=== PATIENT | male | born 1955 | race Caucasian/White ===

== ENCOUNTER 2018-12-09 23:21 | Inpatient (IN) | payer OTHER ==
[2018-12-09] MEDS ORDERED: NITROGLYCERIN OINT 1 INCH/GM PACKET TOPICAL STA (23:36)
[2018-12-09] MEDS ORDERED: ASPIRIN 81 MG PO STA (23:36)
--- NOTE | 2018-12-09 23:45 | ED ---
General Adult HPI - General Chief complaint: Chest Pain Stated complaint: chest pain Time Seen by Provider: 12/09/18 23:25 Source: patient, RN notes reviewed Mode of arrival: EMS - History of Present Illness Initial comments: This is a 63-year-old male who presents emergency Department with a past medical history significant for cardiac stents as well as diabetes hypertension high cholesterol. Patient also has a distant smoking history. Patient states he also has a strong family history of heart disease having had a sister with a stroke and 2 brothers with a heart attack. Patient states he just lost her brother one month ago. Patient states yesterday while he was having chest pain which went down his right arm. Patient states it lasts about an hour. Patient states today he was doing some heavy lifting and it brought the chest pain on again. Patient states it lasted for a total of 20 minutes but he also noticed that chest pain got conservative worse when he was walking up the stairs in his house. Patient states it is very reminiscent of the pain he had when he had his heart attack. Patient did not feel as though he couldn't drive himself and said he called an ambulance. Patient denies any diaphoretic episodes. Patient denies any nausea. Patient denies any chest pain currently. Patient denies any swelling to the legs or calf tenderness. Patient denies any lightheadedness dizziness or near syncopal episode. - Related Data Home Medications Medication Instructions Recorded Confirmed Isosorbide Mononitrate [Isosorbide 30 mg PO DAILY 12/10/15 12/09/18 Mononitrate ER] Lisinopril [Zestril] 20 mg PO DAILY 12/10/15 12/09/18 Metoprolol Tartrate [Lopressor] 50 mg PO BID 12/10/15 12/09/18 Omeprazole 20 mg PO BID 12/10/15 12/09/18 metFORMIN HCL [Glucophage] 500 mg PO TID 12/10/15 12/09/18 Dapagliflozin Propanediol [Farxiga] 10 mg PO DAILY 12/09/18 12/09/18 Rosuvastatin [Crestor] 20 mg PO HS 12/09/18 12/09/18 Allergies Allergy/AdvReac Type Severity Reaction Status Date / Time codeine AdvReac Rapid Verified 12/09/18 23:49 Heart Rate meperidine HCl [From Demerol] AdvReac Rapid Verified 12/09/18 23:49 Heart Rate Review of Systems ROS Statement: Those systems with pertinent positive or pertinent negative responses have been documented in the HPI. ROS Other: All systems not noted in ROS Statement are negative. Past Medical History Past Medical History: Diabetes Mellitus, Hyperlipidemia, Myocardial Infarction ([place]) History of Any Multi-Drug Resistant Organisms: None Reported Past Surgical History: Appendectomy Past Psychological History: No Psychological Hx Reported Smoking Status: Former smoker Past Alcohol Use History: None Reported Past Drug Use History: None Reported General Exam - General Exam Comments Initial Comments: GENERAL: Patient is well-developed and well-nourished. Patient is nontoxic and well- hydrated and is in mild distress. ENT: Neck is soft and supple. No significant lymphadenopathy is noted. Oropharynx is clear. Moist mucous membranes. Neck has full range of motion without elicit ing any pain. EYES: The sclera were anicteric and conjunctiva were pink and moist. Extraocular m ovements were intact and pupils were equal round and reactive to light. Eyelids were unremarkable. PULMONARY: Unlabored respirations. Good breath sounds bilaterally. No audible rales rhonchi or wheezing was noted. CARDIOVASCULAR: There is a regular rate and rhythm without any murmurs gallops or rubs. ABDOMEN: Soft and nontender with normal bowel sounds. SKIN: Skin is clear with no lesions or rashes and otherwise unremarkable. NEUROLOGIC: Patient is alert and oriented x3. Cranial nerves II through XII are grossly intact. Motor and sensory are also intact. Normal speech, volume and content. Symmetrical smile. MUSCULOSKELETAL: Normal extremities with adequate strength and full range of motion. No lower extremity swelling or edema. No calf tenderness. LYMPHATICS: No significant lymphadenopathy is noted PSYCHIATRIC: Normal psychiatric evaluation. Course Vital Signs 12/09/18 12/10/18 23:25 00:01 Temperature 98.0 F Pulse Rate 68 69 Respiratory 16 18 Rate Blood Pressure 154/100 157/89 O2 Sat by Pulse 97 94 L Oximetry Medical Decision Making - Medical Decision Making EKG shows a normal sinus rhythm at 69 bpm AL interval 270 QRS is 84 QT interval 376 QTC is 42. Patient's EKG shows no ST segment elevation or depression or T wave abnormalities are noted. Chest x-ray shows no acute abnormality. I started the patient on heparin. I spoke with Dr. Browning she agreed to admit the patient admitted the patient I wrote admitting orders I consulted cardiology I continue the heparin and aspirin and Nitropaste on the floor. - Lab Data Result diagrams: 12/09/18 23:29 12/09/18 23:29 Lab Results 12/09/18 12/09/18 12/09/18 Range/Units 23:29 23:29 23:29 WBC 6.5 (3.8-10.6) k/uL RBC 5.38 (4.30-5.90) m/uL Hgb 15.9 (13.0-17.5) gm/dL Hct 48.4 (39.0-53.0) % MCV 89.8 (80.0-100.0) fL MCH 29.6 (25.0-35.0) pg MCHC 32.9 (31.0-37.0) g/dL RDW 14.4 (11.5-15.5) % Plt Count 125 L (150-450) k/uL Neutrophils % 58 % Lymphocytes % 30 % Monocytes % 5 % Eosinophils % 4 % Basophils % 1 % Neutrophils # 3.8 (1.3-7.7) k/uL Lymphocytes # 2.0 (1.0-4.8) k/uL Monocytes # 0.3 (0-1.0) k/uL Eosinophils # 0.2 (0-0.7) k/uL Basophils # 0.1 (0-0.2) k/uL PT 10.4 (9.0-12.0) sec INR 1.0 (<1.2) APTT 24.7 (22.0-30.0) sec Sodium 137 (137-145) mmol/L Potassium 3.9 (3.5-5.1) mmol/L Chloride 104 (98-107) mmol/L Carbon Dioxide 20 L (22-30) mmol/L Anion Gap 13 mmol/L BUN 16 (9-20) mg/dL Creatinine 0.81 (0.66-1.25) mg/dL Est GFR (CKD-EPI)AfAm >90 (>60 ml/min/1.73 sqM) Est GFR (CKD-EPI)NonAf >90 (>60 ml/min/1.73 sqM) Glucose 166 H (74-99) mg/dL Calcium 9.8 (8.4-10.2) mg/dL Magnesium 1.6 (1.6-2.3) mg/dL Total Bilirubin 0.5 (0.2-1.3) mg/dL AST 41 (17-59) U/L ALT 31 (21-72) U/L Alkaline Phosphatase 95 (38-126) U/L Troponin I (0.000-0.034) ng/mL Total Protein 7.2 (6.3-8.2) g/dL Albumin 4.4 (3.5-5.0) g/dL 12/09/18 Range/Units 23:29 WBC (3.8-10.6) k/uL RBC (4.30-5.90) m/uL Hgb (13.0-17.5) gm/dL Hct (39.0-53.0) % MCV (80.0-100.0) fL MCH (25.0-35.0) pg MCHC (31.0-37.0) g/dL RDW (11.5-15.5) % Plt Count (150-450) k/uL Neutrophils % % Lymphocytes % % Monocytes % % Eosinophils % % Basophils % % Neutrophils # (1.3-7.7) k/uL Lymphocytes # (1.0-4.8) k/uL Monocytes # (0-1.0) k/uL Eosinophils # (0-0.7) k/uL Basophils # (0-0.2) k/uL PT (9.0-12.0) sec INR (<1.2) APTT (22.0-30.0) sec Sodium (137-145) mmol/L Potassium (3.5-5.1) mmol/L Chloride (98-107) mmol/L Carbon Dioxide (22-30) mmol/L Anion Gap mmol/L BUN (9-20) mg/dL Creatinine (0.66-1.25) mg/dL Est GFR (CKD-EPI)AfAm (>60 ml/min/1.73 sqM) Est GFR (CKD-EPI)NonAf (>60 ml/min/1.73 sqM) Glucose (74-99) mg/dL Calcium (8.4-10.2) mg/dL Magnesium (1.6-2.3) mg/dL Total Bilirubin (0.2-1.3) mg/dL AST (17-59) U/L ALT (21-72) U/L Alkaline Phosphatase (38-126) U/L Troponin I 0.558 H* (0.000-0.034) ng/mL Total Protein (6.3-8.2) g/dL Albumin (3.5-5.0) g/dL Critical Care Time Critical Care Time: Yes Total Critical Care Time: 35 Disposition Clinical Impression: Non-STEMI (non-ST elevated myocardial infarction) Disposition: ADMITTED IP TO THIS HOSP Referrals: Shraddha العلي MD [Primary Care Provider] - 1-2 days Time of Disposition: 00:22
[2018-12-09 23:50] LABS: Basophils # (A) 0.1 k/uL (0-0.2); Basophils % (A) 1 %; Eosinophils # (A) 0.2 k/uL (0-0.7); Eosinophils % (A) 4 %; HCT 48.4 % (39.0-53.0); HGB 15.9 gm/dL (13.0-17.5); Lymphocytes % (A) 30 %; MCH 29.6 pg (25.0-35.0); MCHC 32.9 g/dL (31.0-37.0); MCV 89.8 fL (80.0-100.0); Mean Platelet Volume 8.3; Monocytes # (A) 0.3 k/uL (0-1.0); Monocytes % (A) 5 %; Neutrophils # (A) 3.8 k/uL (1.3-7.7); Neutrophils % (A) 58 %; Platelet Count 125 k/uL (150-450); RBC 5.38 m/uL (4.30-5.90); RDW 14.4 % (11.5-15.5); WBC 6.5 k/uL (3.8-10.6)
[2018-12-10 00:06] LABS: ALT 31 U/L (21-72); AST 41 U/L (17-59); Albumin 4.4 g/dL (3.5-5.0); Alkaline Phosphatase 95 U/L (38-126); Anion Gap 13 mmol/L; Blood Urea Nitrogen 16 mg/dL (9-20); Calcium 9.8 mg/dL (8.4-10.2); Carbon Dioxide 20 mmol/L (22-30); Chloride 104 mmol/L (98-107); Glucose 166 mg/dL (74-99); Magnesium 1.6 mg/dL (1.6-2.3); Potassium 3.9 mmol/L (3.5-5.1); Sodium 137 mmol/L (137-145); Total Bilirubin 0.5 mg/dL (0.2-1.3); Total Protein 7.2 g/dL (6.3-8.2)
[2018-12-10 00:18] LABS: Partial Thromboplastin Time 24.7 sec (22.0-30.0); Prothrombin Time 10.4 sec (9.0-12.0)
[2018-12-10] MEDS ORDERED: HEPARIN SODIUM,PORCINE 5,000 UNIT/ML 1 ML VIAL IV ONE (00:20)
--- NOTE | 2018-12-10 00:21 | XR ---
History: ITS.REASON XR Reason: Chest Pain Exam: XR CXR 2 VIEWS Comparison: None available FINDINGS: The lungs are clear. The cardiac and mediastinal contours are within limits. The visualized osseous structures appear within limits. IMPRESSION: No evidence of acute disease.
[2018-12-10] MEDS ORDERED: NITROGLYCERIN SL TABS 0.4 MG TAB SUBLINGUAL PRN ×2 (00:23→12:09)
[2018-12-10] MEDS ORDERED: HEPARIN SOD,PORK IN 0.45% NACL 25,000 UNIT in 0.45% NACL 1 250ML.BAG IV SCH (00:30)
[2018-12-10] MEDS: NITROGLYCERIN OINT 1 INCH/GM PACKET TOPICAL SCH ×2 (09:04→19:40)
[2018-12-10 09:41] LABS: Glucose,Whole Blood 156 mg/dL (75-99)
[2018-12-10 09:47] LABS: Anion Gap 10 mmol/L; Blood Urea Nitrogen 15 mg/dL (9-20); Calcium 9.4 mg/dL (8.4-10.2); Carbon Dioxide 25 mmol/L (22-30); Chloride 104 mmol/L (98-107); Glucose 158 mg/dL (74-99); Potassium 4.5 mmol/L (3.5-5.1); Sodium 139 mmol/L (137-145)
[2018-12-10] MEDS ORDERED: ALPRAZolam 0.5 MG TAB PO PRN (12:09)
[2018-12-10] MEDS ORDERED: SODIUM CHLORIDE 0.9% 1,000 ML in EMPTY BAG 1 BAG IV ONE (12:09)
[2018-12-10] MEDS ORDERED: ALPRAZolam 0.25 MG TAB PO PRN (12:09)
[2018-12-10] MEDS ORDERED: ATORVASTATIN 80 MG TAB PO STA (12:09)
[2018-12-10] MEDS ORDERED: ASPIRIN 325 MG TAB PO STA (12:09)
--- NOTE | 2018-12-10 12:09 | P.CRDCN ---
History of Present Illness Consult date: 12/10/18 Requesting physician: Adam Beltrán Consult reason: non-Q-wave PA Chief complaint: Chest pain History of present illness: This is a pleasant 63-year-old gentleman who has a known history of coronary artery disease, he states that he had a stent placed approximately 20 years ago, history of diabetes, hypertension, hyperlipidemia, he also has a prior history of smoking but quit several years ago. Strong family history of premature coronary artery disease in his siblings. Patient did just recently lose a brother. Patient presents to the hospital with symptoms of chest discomf ort. Approximately 2 days ago he started having discomfort in his right arm, he described it as a throbbing sensation, he did state that he took 3 aspirins, the symptoms seemed to improve. He slept well that night, went to work the following day, and states that he had midsternal chest discomfort, if he would sit down and rest the symptoms would subside and every time he would go back to work or walking the symptoms would return. They progressively worsened through the day to the point where he states he had a heartburn sensation similar to his prior episode when he had a stent placed. He went and spoke with his boss and EMS was called patient was brought directly to the hospital. Chest x-ray does not reveal any active disease. EKG shows a normal sinus rhythm with no acute changes noted. Blood pressure on arrival here 154/100 with a heart rate in the 60s, 97% on room air. I pressure this morning 145/80 with a heart rate in the 70s, 98% on 2 L of oxygen. Blood cell count 6.5, hemoglobin 15.9, platelet count 125. Sodium 139, potassium 4.5, BUN 15 and creatinine 0.8. Troponin 0.55, 0.72, 0.68. Magnesium 1.6. According to the patient, he has not been taking an aspirin a day, he states he has actually not even been taking his cholesterol pill as he should've been. His other home medications listed include Glucophage, Crestor 20 mg daily which she states he has not been taking, Lopressor 50 mg twice a day, Zestril 20 mg daily, Imdur 30 mg daily. At the time of my examination in the emergency room, patient is currently chest pain- free. He has been advised today to undergo cardiac catheterization, the risks and the benefits were explained to the patient in detail and he is willing to proceed. Patient has not followed up with a outreach team member according to him in o [place] 15 years. Past Medical History Past Medical History: Diabetes Mellitus, Hyperlipidemia, Myocardial Infarction ([place]) Last Myocardial Infarction Date:: 1998 History of Any Multi-Drug Resistant Organisms: None Reported Past Surgical History: Appendectomy, Heart Catheterization With Stent Additional Past Surgical History / Comment(s): Heart cath with stent 20 years ago Past Anesthesia/Blood Transfusion Reactions: No Reported Reaction Date of Last Stent Placement:: 1998 Past Psychological History: No Psychological Hx Reported Smoking Status: Former smoker Past Alcohol Use History: Daily, Heavy Additional Past Alcohol Use History / Comment(s): Patient states he drinks about 8 beers a day Past Drug Use History: None Reported Medications and Allergies Home Medications Medication Instructions Recorded Confirmed Type Isosorbide Mononitrate [Isosorbide 30 mg PO DAILY 12/10/15 12/09/18 History Mononitrate ER] Lisinopril [Zestril] 20 mg PO DAILY 12/10/15 12/09/18 History Metoprolol Tartrate [Lopressor] 50 mg PO BID 12/10/15 12/09/18 History Omeprazole 20 mg PO BID 12/10/15 12/09/18 History metFORMIN HCL [Glucophage] 500 mg PO TID 12/10/15 12/09/18 History Dapagliflozin Propanediol [Farxiga] 10 mg PO DAILY 12/09/18 12/09/18 History Rosuvastatin [Crestor] 20 mg PO HS 12/09/18 12/09/18 History Allergies Allergy/AdvReac Type Severity Reaction Status Date / Time codeine AdvReac Rapid Verified 12/09/18 23:49 Heart Rate Latex, Natural Rubber AdvReac Rash/Hives Verified 12/10/18 04:52 meperidine HCl [From Demerol] AdvReac Rapid Verified 12/09/18 23:49 Heart Rate Physical Exam Vitals: Vital Signs Temp Pulse Pulse Resp BP BP Pulse Ox 12/10/18 08:00 97.9 F 74 18 145/88 98 12/10/18 04:00 60 17 109/74 96 12/10/18 03:20 56 L 20 106/70 12/10/18 03:10 56 L 11 L 106/70 12/10/18 03:00 57 L 9 L 108/70 12/10/18 02:50 59 L 19 108/70 12/10/18 02:40 56 L 15 108/70 12/10/18 02:30 58 L 9 L 115/72 12/10/18 02:20 56 L 22 115/72 12/10/18 02:10 58 L 14 104/54 94 L 12/10/18 02:00 60 12 112/64 94 L 12/10/18 01:50 64 21 112/64 93 L 12/10/18 01:40 55 L 10 L 112/64 97 12/10/18 01:30 55 L 13 99/71 94 L 12/10/18 01:20 55 L 15 99/71 95 12/10/18 01:10 57 L 10 L 99/71 96 12/10/18 01:00 56 L 9 L 105/82 96 12/10/18 00:50 58 L 20 105/82 94 L 12/10/18 00:40 54 L 10 L 105/82 93 L 12/10/18 00:30 55 L 9 L 157/99 94 L 12/10/18 00:20 56 L 11 L 157/99 95 12/10/18 00:10 60 19 157/99 97 12/10/18 00:01 69 18 157/89 94 L 12/10/18 00:00 62 11 L 159/101 95 12/09/18 23:50 159/101 12/09/18 23:40 61 8 L 159/101 96 12/09/18 23:30 70 9 L 154/100 98 12/09/18 23:25 98.0 F 68 16 154/100 97 12/09/18 23:24 98 Intake and Output 12/09/18 12/10/18 12/10/18 22:59 06:59 14:59 Output Total 650 Balance -650 Output: Urine 650 Other: Weight 78.925 kg PHYSICAL EXAMINATION: GENERAL: 63-year-old gentleman in no acute distress at the time of my examination HEENT: Head is atraumatic, normocephalic. Pupils equal, round. Sclera anicteric. Conjunctiva are clear. Mucous membranes of the mouth are moist. Neck is supple. There is no elevated jugular venous pressure. No carotid bruit is heard. HEART EXAMINATION: Heart S1, S2 normal. No murmur or gallop heard. CHEST EXAMINATION: Lungs are clear to auscultation and precussion. No chest wall tenderness is noted on palpation or with deep breathing. ABDOMEN: Soft, nontender. Bowel sounds are heard. No organomegaly noted. EXTREMITIES: 2+ peripheral pulses with no evidence of peripheral edema and no calf tenderness noted. NEUROLOGIC patient is awake, alert and oriented 3 . . Results 12/09/18 23:12/10/18 08:42 Cardiac Enzymes 12/09/18 12/09/18 12/10/18 Range/Units : 23: 02:09 AST 41 (17-59) U/L Troponin I 0.558 H* 0.726 H* (0.000-0.034) ng/mL 12/10/18 Range/Units 08:42 AST (17-59) U/L Troponin I 0.683 H* (0.000-0.034) ng/mL Coagulation 12/09/18 12/10/18 Range/Units 23: 08:42 PT 10.4 (9.0-12.0) sec APTT 24.7 24.6 (22.0-30.0) sec CBC 12/09/18 Range/Units 23:29 WBC 6.5 (3.8-10.6) k/uL RBC 5.38 (4.30-5.90) m/uL Hgb 15.9 (13.0-17.5) gm/dL Hct 48.4 (39.0-53.0) % Plt Count 125 L (150-450) k/uL Comprehensive Metabolic Panel 12/09/18 12/10/18 Range/Units 23: 08:42 Sodium 137 139 (137-145) mmol/L Potassium 3.9 4.5 (3.5-5.1) mmol/L Chloride 104 104 (98-107) mmol/L Carbon Dioxide 20 L 25 (22-30) mmol/L BUN 16 15 (9-20) mg/dL Creatinine 0.81 0.86 (0.66-1.25) mg/dL Glucose 166 H 158 H (74-99) mg/dL Calcium 9.8 9.4 (8.4-10.2) mg/dL AST 41 (17-59) U/L ALT 31 (21-72) U/L Alkaline Phosphatase 95 (38-126) U/L Total Protein 7.2 (6.3-8.2) g/dL Albumin 4.4 (3.5-5.0) g/dL Current Medications Generic Name Dose Route Start Last Admin Trade Name Freq PRN Reason Stop Dose Admin Aspirin 325 mg 12/11/18 09:00 Aspirin PO DAILY [facility] Heparin Sodium/Sodium Chloride 250 mls @ 9.471 mls/hr 12/10/18 00:30 12/10/18 00:49 25,000 unit/ Sodium Chloride IV 12 units/kg/hr .Q24H MAUREEN 9.471 mls/hr Administration Protocol 12 UNITS/KG/HR Nitroglycerin 1 inch 12/10/18 06:00 12/10/18 09:04 Nitro-Bid Oint TOPICAL 1 inch Q6HR MAUREEN Administration Nitroglycerin 0.4 mg 12/10/18 00:23 Nitrostat SUBLINGUAL Q5M PRN Chest Pain Intake and Output 12/09/18 12/10/18 12/10/18 22:59 06:59 14:59 Output Total 650 Balance -650 Output: Urine 650 Other: Weight 78.925 kg 12/09/18 23:29 12/10/18 08:42 EKG Interpretations (text) EKG shows a normal sinus rhythm with no acute changes. Assessment and Plan Plan: Assessment and plan #1 symptoms of chest discomfort with radiation to the arm, clinical picture suggesting acute coronary syndrome. EKG shows normal sinus rhythm with no acute changes. Troponins 0.55, 0.72, 0.68. #2 known history of coronary artery disease with prior stent placement approximately 20 years ago #3 hypertension #4 hyperlipidemia #5 diabetes #6 prior history of smoking Plan We will obtain an echocardiogram with Doppler study. Patient is also been advised to undergo cardiac catheterization, the risks and the benefits again were explained to the patient in detail and he is willing to proceed. This will be performed today by Dr. Ferreira. Patient has been initiated on aspirin as well as IV heparin drip, he is currently on Nitropaste. Will resume the patient's Lopressor, Zestril, and put the patient on 80 mg of Lipitor. Further recommendations to follow. DNP note has been reviewed, I agree with a documented findings and plan of care. Patient was seen and examined.
[2018-12-10] MEDS ORDERED: ATORVASTATIN 80 MG TAB PO SCH (12:15)
[2018-12-10] MEDS ORDERED: IV FLUID CONTINUATION 350 ML IV ONE (12:18)
[2018-12-10] MEDS ORDERED: LIDOCAINE 1% INJ 10MG/ML (20 ML MDV) ONE ×2 (12:23→12:40)
[2018-12-10] MEDS ORDERED: fentaNYL (PF) 50 MCG/ML 2 ML AMP ONE (12:23)
[2018-12-10] MEDS ORDERED: MIDAZOLAM (PF) 2 MG/2 ML VIAL IV ONE (12:33)
[2018-12-10] MEDS ORDERED: LIDOCAINE 1% INJ 10MG/ML (20 ML MDV) SQ ONE ×2 (12:36)
[2018-12-10] MEDS: fentaNYL (PF) 50 MCG/ML 2 ML AMP IV ONE ×2 (12:38→12:43)
--- NOTE | 2018-12-10 12:45 | P.HPIM ---
History of Present Illness This is a pleasant 63-year-old gentleman with known history of coronary disease and a cardiac stent 20 years ago came in with compensative pressure-like chest pain has been going on for last several days and last for about an hour no associated dizziness or lightheadedness but does have shortness of breath associated with that exertional chest pain pressure-like as well as burning sensation and retrosternal area. Patient does have mildly elevated troponins of 0.55 0.7 22.68. Patient chest pain radiates to the right arm. Moderate chest pain. Patient is noncompliant with his aspirin and statin. Patient doesn't see a certified prosthetist/orthotist anymore. Patient was evaluated by cardiology and the echo and cardiac ablation patient will undergo cardiac catheterization shortly. EKG findings refer to cardiology dictation. Review of Systems REVIEW OF SYSTEMS: CONSTITUTIONAL: No fever, no malaise, no fatigue. HEENT: No recent visual problems or hearing problems. Denied any sore throat. CARDIOVASCULAR: No orthopnea, PND, no palpitations, no syncope. PULMONARY: no cough, no hemoptysis. GASTROINTESTINAL: No diarrhea, no nausea, no vomiting, no abdominal pain. NEUROLOGICAL: No headaches, no weakness, no numbness. HEMATOLOGICAL: Denies any bleeding or petechiae. GENITOURINARY: Denies any burning micturition, frequency, or urgency. MUSCULOSKELETAL/RHEUMATOLOGICAL: Denies any joint pain, swelling, or any muscle pain. ENDOCRINE: Denies any polyuria or polydipsia. The rest of the 14-point review of systems is negative. Past Medical History Past Medical History: Diabetes Mellitus, Hyperlipidemia, Myocardial Infarction ([place]) Last Myocardial Infarction Date:: 1998 History of Any Multi-Drug Resistant Organisms: None Reported Past Surgical History: Appendectomy, Heart Catheterization With Stent Additional Past Surgical History / Comment(s): Heart cath with stent 20 years ago Past Anesthesia/Blood Transfusion Reactions: No Reported Reaction Date of Last Stent Placement:: 1998 Past Psychological History: No Psychological Hx Reported Smoking Status: Former smoker Past Alcohol Use History: Daily, Heavy Additional Past Alcohol Use History / Comment(s): Patient states he drinks about 8 beers a day Past Drug Use History: None Reported Medications and Allergies Home Medications Medication Instructions Recorded Confirmed Type Isosorbide Mononitrate [Isosorbide 30 mg PO DAILY 12/10/15 12/09/18 History Mononitrate ER] Lisinopril [Zestril] 20 mg PO DAILY 12/10/15 12/09/18 History Metoprolol Tartrate [Lopressor] 50 mg PO BID 12/10/15 12/09/18 History Omeprazole 20 mg PO BID 12/10/15 12/09/18 History metFORMIN HCL [Glucophage] 500 mg PO TID 12/10/15 12/09/18 History Dapagliflozin Propanediol [Farxiga] 10 mg PO DAILY 12/09/18 12/09/18 History Rosuvastatin [Crestor] 20 mg PO HS 12/09/18 12/09/18 History Allergies Allergy/AdvReac Type Severity Reaction Status Date / Time codeine AdvReac Rapid Verified 12/09/18 23:49 Heart Rate Latex, Natural Rubber AdvReac Rash/Hives Verified 12/10/18 04:52 meperidine HCl [From Demerol] AdvReac Rapid Verified 12/09/18 23:49 Heart Rate Physical Exam Vitals: Vital Signs Temp Pulse Pulse Resp BP BP Pulse Ox 12/10/18 08:00 97.9 F 74 18 145/88 98 12/10/18 04:00 60 17 109/74 96 12/10/18 03:20 56 L 20 106/70 12/10/18 03:10 56 L 11 L 106/70 12/10/18 03:00 57 L 9 L 108/70 12/10/18 02:50 59 L 19 108/70 12/10/18 02:40 56 L 15 108/70 12/10/18 02:30 58 L 9 L 115/72 12/10/18 02:20 56 L 22 115/72 12/10/18 02:10 58 L 14 104/54 94 L 12/10/18 02:00 60 12 112/64 94 L 12/10/18 01:50 64 21 112/64 93 L 12/10/18 01:40 55 L 10 L 112/64 97 12/10/18 01:30 55 L 13 99/71 94 L 12/10/18 01:20 55 L 15 99/71 95 12/10/18 01:10 57 L 10 L 99/71 96 12/10/18 01:00 56 L 9 L 105/82 96 12/10/18 00:50 58 L 20 105/82 94 L 12/10/18 00:40 54 L 10 L 105/82 93 L 12/10/18 00:30 55 L 9 L 157/99 94 L 12/10/18 00:20 56 L 11 L 157/99 95 12/10/18 00:10 60 19 157/99 97 12/10/18 00:01 69 18 157/89 94 L 12/10/18 00:00 62 11 L 159/101 95 12/09/18 23:50 159/101 12/09/18 23:40 61 8 L 159/101 96 12/09/18 23:30 70 9 L 154/100 98 12/09/18 23:25 98.0 F 68 16 154/100 97 12/09/18 23:24 98 Intake and Output 12/09/18 12/10/18 12/10/18 22:59 06:59 14:59 Intake Total 108.759 Output Total 650 Balance -650 108.759 Intake: Intake, IV Titration 108.759 Amount Heparin Sod,Pork in 0.45% 108.759 NaCl 25,000 unit In 0.45 % NaCl 1 250ml.bag @ 12 UNITS/KG/HR 9.471 mls/hr IV .Q24H [facility] Rx#: [id number] Output: Urine 650 Other: Weight 78.925 kg PHYSICAL EXAMINATION: GENERAL: The patient is alert and oriented x3, not in any acute distress. Well developed, well nourished. HEENT: Pupils are round and equally reacting to light. EOMI. No scleral icterus. No conjunctival pallor. Normocephalic, atraumatic. No pharyngeal erythema. No thyromegaly. CARDIOVASCULAR: S1 and S2 present. No murmurs, rubs, or gallops. PULMONARY: Chest is clear to auscultation, no wheezing or crackles. ABDOMEN: Soft, nontender, nondistended, normoactive bowel sounds. No palpable organomegaly. MUSCULOSKELETAL: No joint swelling or deformity. EXTREMITIES: No cyanosis, clubbing, or pedal edema. NEUROLOGICAL: Gross neurological examination did not reveal any focal deficits. SKIN: No rashes. Results CBC & Chem 7: 12/09/18 23:29 12/10/18 08:42 Labs: Abnormal Lab Results - Last 24 Hours (Table) 12/09/18 12/09/1812/09/19 Range/Units 23:29 23:29 23:29 Plt Count 125 L (150-450) k/uL Carbon Dioxide 20 L (22-30) mmol/L Glucose 166 H (74-99) mg/dL POC Glucose (mg/dL) (75-99) mg/dL Troponin I 0.558 H* (0.000-0.034) ng/mL 12/10/18 12/10/18 12/10/18 Range/Units 02:09 08:42 08:42 Plt Count (150-450) k/uL Carbon Dioxide (22-30) mmol/L Glucose 158 H (74-99) mg/dL POC Glucose (mg/dL) (75-99) mg/dL Troponin I 0.726 H* 0.683 H* (0.000-0.034) ng/mL 12/10/18 Range/Units 09:14 Plt Count (150-450) k/uL Carbon Dioxide (22-30) mmol/L Glucose (74-99) mg/dL POC Glucose (mg/dL) 156 H (75-99) mg/dL Troponin I (0.000-0.034) ng/mL Thrombosis Risk Factor Assmnt - Choose All That Apply Any of the Below Risk Factors Present?: Yes Each Factor Represents 1 point: Obesity (BMI >25) Other Risk Factors: Yes Each Risk Factor Represents 2 Points: Age 61-74 years Other congenital or acquired thrombophilia - If yes, enter type in comment: No Thrombosis Risk Factor Assessment Total Risk Factor Score: 3 Thrombosis Risk Factor Assessment Level: Moderate Risk Assessment and Plan Plan: Possible non-ST elevation myocardial infarction: Patient will undergo cardiac c atheterization today continue with statin and beta kirit and antiplatelet therapy. -Known history of coronary disease -Hypertension Hyperlipidemia -Type 2 diabetes mellitus For above-mentioned chronic medical problems patient will be started and continued on for above-mentioned chronic medical problems patient will be started and continued on appropriate home medications.
[2018-12-10] MEDS ORDERED: BIVALIRUDIN BOLUS 250 MG/50 ML IV ONE (13:25)
[2018-12-10] MEDS ORDERED: BIVALIRUDIN 250 MG in SODIUM CHLORIDE 0.9% 50 ML IV ONE (13:26)
--- NOTE | 2018-12-10 13:35 | CC ---
CARDIAC CATHETERIZATION REPORT Mr. Gee is a 63-year-old gentleman who was admitted to the hospital with symptoms of chest pain and non ST-segment elevation myocardial infarction. In view of that, the patient was recommended to have a cardiac catheterization for definitive diagnosis. PROCEDURE: The right groin was prepped and draped in the usual manner and the right femoral artery was entered under ultrasound guidance using micropuncture needle and a 6-Kyrgyz sheath was placed in. Selective coronary angiography was then performed in multiple projections. Left ventricular pressures were obtained. HEMODYNAMICS: The left ventricular end-diastolic pressure is 8 to 10 mmHg prior to angiography. No gradient is noted across the aortic valve. SELECTIVE CORONARY ANGIOGRAPHY: Left main coronary artery is normal and patent. LAD is a good caliber blood vessel and mid LAD after the origin of the second diagonal branch has about 50% stenosis. Circumflex coronary artery has mild irregularity. Right coronary artery is a large caliber blood vessel and is diffusely diseased in the proximal portion with 99% stenosis. The stenosis extends from proximal part of the stent to probably the septum. The mid RCA has another area of 70% stenosis. FINAL IMPRESSION: This study reveals a 99% stenosis in the proximal RCA and mid RCA has another 70% stenosis. The mid LAD has 50% stenosis. Circumflex coronary artery has a mild irregularity. RECOMMENDATIONS: We reviewed the film with Dr. Velasco and consider probably stent to the RCA and possible FFR to the mid LAD. MMODL / IJN: [id number] /
[2018-12-10] MEDS ORDERED: IOPAMIDOL-370 125ML BTL INJ ONE (13:55)
[2018-12-10] MEDS ORDERED: TICAGRELOR 90 MG TAB ONE (14:24)
[2018-12-10] MEDS ORDERED: TICAGRELOR 90 MG TAB PO ONE (14:25)
[2018-12-10] MEDS ORDERED: ZOLPIDEM 5 MG TAB PO PRN (14:25)
[2018-12-10] MEDS ORDERED: MAG HYDROX/AL HYDROX/SIMETH 30 ML CUP PO PRN (14:25)
[2018-12-10] MEDS ORDERED: RX INFO: IV CONTRAST WAS GIVEN 1 EACH MISC MISCELLANE PRN (14:25)
[2018-12-10] MEDS ORDERED: ATROPINE SULFATE 0.1 MG/ML 10ML SYRINGE IV PRN (14:25)
[2018-12-10] MEDS ORDERED: IOPAMIDOL-370 100ML BTL INJ ONE (14:38)
[2018-12-10 16:17] LABS: Glucose,Whole Blood 128 mg/dL (75-99)
--- NOTE | 2018-12-10 16:19 | ECHOF ---
Referral Reason:assess lvf MEASUREMENTS -------- HEIGHT: 162.6 cm WEIGHT: 78.9 kg BP: RVIDd: 3.2 cm (< 3.3) IVSd: 1.3 cm (0.6 - 1.1) LVIDd: 4.0 cm (3.9 - 5.3) LVPWd: 1.4 cm (0.6 - 1.1) IVSs: 1.6 cm LVIDs: 3.0 cm LVPWs: 1.6 cm LAESV Index (A-L): 19.26 ml/m Ao Diam: 3.5 cm (2.0 - 3.7) AV Cusp: 1.8 cm (1.5 - 2.6) LA Diam: 4.2 cm (2.7 - 3.8) MV EXCURSION: 16.312 mm (> 18.000) MV EF SLOPE: 59 mm/s (70 - 150) EPSS: 0.8 cm MV E Thompson: 0.66 m/s MV DecT: 231 ms MV A Thompson: 0.78 m/s MV E/A Ratio: 0.84 RAP: 5.00 mmHg RVSP: 20.18 mmHg FINDINGS -------- Sinus rhythm. This was a technically difficult study with suboptimal apical views. The left ventricular size is normal. There is mild concentric left ventricular hypertrophy. Overa ll left ventricular systolic function is normal with, an EF between 55 - 60 %. The right ventricle is normal in size. Normal LA size by volume 22+/-6 ml/m2. The right atrial size is normal. Lumason used Interatrial and interventricular septum intact. Aortic valve is trileaflet and is mildly thickened. The mitral valve is normal. There is trace mitral regurgitation. Trace tricuspid regurgitation present. There is no evidence of pulmonary hypertension. The right ventricular systolic pressure, as measured by Doppler, is 20.18mmHg. Trace/mild (physiologic) pulmonic regurgitation. The aortic root size is normal. IVC Not well visulized. Echo free space indicative of a pericardial fat pad. CONCLUSIONS -------- 1. Sinus rhythm. 2. This was a technically difficult study with suboptimal apical views. 3. The left ventricular size is normal. 4. There is mild concentric left ventricular hypertrophy. 5. Overall left ventricular systolic function is normal with, an EF between 55 - 60 %. 6. The right ventricle is normal in size. 7. Normal LA size by volume 22+/-6 ml/m2. 8. The right atrial size is normal. 9. Lumason used 10. Interatrial and interventricular septum intact. 11. Aortic valve is trileaflet and is mildly thickened. 12. The mitral valve is normal. 13. There is trace mitral regurgitation. 14. Trace tricuspid regurgitation present. 15. There is no evidence of pulmonary hypertension. 16. The right ventricular systolic pressure, as measured by Doppler, is 20.18mmHg. 17. Trace/mild (physiologic) pulmonic regurgitation. 18. The aortic root size is normal. 19. IVC Not well visulized. 20. Echo free space indicative of a pericardial fat pad. STEEL POST INSTALLER SUPERVISOR: Calista Carey RDCS
[2018-12-10] MEDS: SODIUM CHLORIDE 0.9% 1,000 ML IV SCH (16:39)
[2018-12-10 17:02] LABS: Glucose,Whole Blood 118 mg/dL (75-99)
--- NOTE | 2018-12-10 17:36 | PTCA ---
PERCUTANEOUSTRANS CORORONARY ANGIOGRAPHY DATE OF SERVICE: 12/10/2018 PERFORMING PHYSICIAN: Christian Velasco MD, medical manager. PROCEDURE PERFORMED: Successful stenting of a complex calcified eccentric lesion involving the proximal right coronary artery using a 3.0 x 18 mm Xience drug-eluting stent with an excellent angiographic result and reduction of stenosis from 99% to 0%. INDICATION: This is a 63-year-old gentleman with history of coronary artery disease and prior coronary artery stenting of the RCA who presented to the hospital with chest discomfort and ruled in for acute [id number] myocardial infarction. He underwent heart catheterization by Dr. Ferreira and was found to have critical disease involving the proximal RCA with eccentric calcified lesion, very complex. Because of that, PCI was advised. APPROACH: Right common femoral artery. COMPLICATIONS: None. LEVEL OF SEDATION: Moderate, with sedation length of 56 minutes. PROCEDURE DESCRIPTION: Please refer to the diagnostic heart catheterization that was performed by Dr. Ferreira. Anticoagulation was initiated using Angiomax. Subsequently I did engage the RCA using JR4 guide. A Whisper wire was used to wire the lesion in the RCA. I could not advance any balloon across the lesion, including a 1.25 mm balloon. Because of that I double- wired the RCA using a run-through wire. Over the run-through I was able to advance initially a 1.5 mm balloon and subsequently a 2.5 mm balloon. I did balloon angioplasty of the RCA. There was a narrowing of the balloon and I ballooned it using 3.0 mm NC balloon. After that I was able to advance a 3.0 x 18 mm Xience SILVIA where the stent was positioned under fluoroscopic guidance and deployed under 18 atmospheres for 20 seconds. I post dilated the stent using a 3.0 NC balloon. The final angiogram showed excellent angiographic results and the procedure was completed without any complication. POST-PROCEDURE MANAGEMENT: 1. Dual anti-platelet therapy. 2. Risk factor modifications. 3. Follow up with the patient. MMODL / IJN: [id number] /
[2018-12-10] MEDS: METOPROLOL TARTRATE 50 MG TAB PO SCH (19:43)
[2018-12-10 20:03] LABS: Hemoglobin A1C 8.8 % (4.0-6.0)
[2018-12-10] MEDS ORDERED: NON-FORMULARY DRUG (Rosuvastatin 20 MG) PO SCH (21:00)
[2018-12-10] MEDS ORDERED: ATORVASTATIN 40 MG TAB PO SCH (21:00)
[2018-12-10] MEDS ORDERED: METOPROLOL TARTRATE 25 MG TAB PO SCH (21:00)
[2018-12-10 21:13] LABS: Glucose,Whole Blood 236 mg/dL (75-99)
[2018-12-10] MEDS: INSULIN ASPART (NovoLOG) 100 UNIT/ML VIAL SQ SCH (21:27)
[2018-12-11] MEDS: SODIUM CHLORIDE 0.9% 1,000 ML IV SCH (00:06)
[2018-12-11 04:37] VITALS: RESP 18
[2018-12-11 06:06] LABS: Glucose,Whole Blood 225 mg/dL (75-99)
[2018-12-11] MEDS: INSULIN ASPART (NovoLOG) 100 UNIT/ML VIAL SQ SCH ×2 (06:17→13:19)
[2018-12-11] MEDS ORDERED: PANTOPRAZOLE 40 MG TABLET PO SCH (07:30)
[2018-12-11 07:43] LABS: Basophils % (A) 1 %; Eosinophils # (A) 0.1 k/uL (0-0.7); Eosinophils % (A) 2 %; HCT 46.9 % (39.0-53.0); Lymphocytes # (A) 1.4 k/uL (1.0-4.8); Lymphocytes % (A) 26 %; MCH 29.2 pg (25.0-35.0); MCHC 31.9 g/dL (31.0-37.0); MCV 91.6 fL (80.0-100.0); Mean Platelet Volume 8.8; Monocytes # (A) 0.4 k/uL (0-1.0); Monocytes % (A) 7 %; Neutrophils # (A) 3.4 k/uL (1.3-7.7); Neutrophils % (A) 63 %; Platelet Count 128 k/uL (150-450); RBC 5.12 m/uL (4.30-5.90); RDW 14.7 % (11.5-15.5); WBC 5.4 k/uL (3.8-10.6)
[2018-12-11 07:48] LABS: Anion Gap 6 mmol/L; Blood Urea Nitrogen 16 mg/dL (9-20); Carbon Dioxide 24 mmol/L (22-30); Chloride 107 mmol/L (98-107); Cholesterol 242 mg/dL (<200); Glucose 196 mg/dL (74-99); HDL Cholesterol 34 mg/dL (40-60); Potassium 4.6 mmol/L (3.5-5.1); Sodium 137 mmol/L (137-145)
[2018-12-11 08:08] LABS: Triglycerides 644 mg/dL (<150)
[2018-12-11] MEDS: METOPROLOL TARTRATE 50 MG TAB PO SCH (08:49)
[2018-12-11] MEDS ORDERED: LISINOPRIL 20 MG TAB PO SCH (09:00)
[2018-12-11] MEDS ORDERED: ASPIRIN 325 MG TAB PO SCH (09:00)
[2018-12-11] MEDS ORDERED: ASPIRIN 81 MG PO SCH (09:00)
[2018-12-11] MEDS ORDERED: ISOSORBIDE MONONITRATE ER 30 MG TAB.ER.24H PO SCH (09:00)
[2018-12-11] MEDS ORDERED: NON-FORMULARY DRUG (Dapagliflozin Propanediol [Farxiga] 10 MG) PO SCH (09:00)
[2018-12-11] MEDS ORDERED: TICAGRELOR 90 MG TAB PO SCH (09:00)
[2018-12-11 10:40] VITALS: BMI 29.7
--- NOTE | 2018-12-11 11:01 | P.DS ---
Providers Date of admission: 12/10/18 00:25 Attending physician: Love Nugent MD Consults: 12/10/18 00:23 Consult Physician Urgent Consulting Provider: Deepak Espinosa Consult Reason/Comments: Non-STEMI Do you want consulting provider notified?: Yes 12/10/18 14:29 Consult Physician Routine Consulting Provider: Deepak Espinosa Consult Reason/Comments: Post Interventional patient Do you want consulting provider notified?: Already Contacted Primary care physician: Zohra Llanes [facility] Course: Patient is a pleasant 63-year-old gentleman with known history of coronary disease and a cardiac stent 20 years ago came in with compensative pressure-like chest pain has been going on for last several days and last for about an hour no associated dizziness or lightheadedness but does have shortness of breath associated with that exertional chest pain pressure-like as well as burning sensation and retrosternal area. Patient does have mildly elevated troponins of 0.55 0.7 22.68. Patient chest pain radiates to the right arm. Moderate chest pain. Patient is noncompliant with his aspirin and statin. Patient doesn't see a booth operator anymore. 12/11/2018 Patient had nondistended microinfarction underwent cardiac catheterization and stenting of the RCA which was completely occluded for rest of the cardiac catheterization report please refer to cardiology documentation. Patient cleared by cardiology will be discharged and medication reconciliation will be addressed by them PHYSICAL EXAMINATION: GENERAL: The patient is alert and oriented x3, not in any acute distress. Well developed, well nourished. HEENT: Pupils are round and equally reacting to light. EOMI. No scleral icterus. No conjunctival pallor. Normocephalic, atraumatic. No pharyngeal erythema. No thyromegaly. CARDIOVASCULAR: S1 and S2 present. No murmurs, rubs, or gallops. PULMONARY: Chest is clear to auscultation, no wheezing or crackles. ABDOMEN: Soft, nontender, nondistended, normoactive bowel sounds. No palpable organomegaly. MUSCULOSKELETAL: No joint swelling or deformity. EXTREMITIES: No cyanosis, clubbing, or pedal edema. NEUROLOGICAL: Gross neurological examination did not reveal any focal deficits. SKIN: No rashes. For rest of the chronic medical problems and hospital physician course please refer to my dictation of HPI from yesterday Plan - Discharge Summary Discharge Rx Participant: No New Discharge Prescriptions: No Action metFORMIN HCL [Glucophage] 500 mg PO TID Lisinopril [Zestril] 20 mg PO DAILY Omeprazole 20 mg PO BID Metoprolol Tartrate [Lopressor] 50 mg PO BID Isosorbide Mononitrate [Isosorbide Mononitrate ER] 30 mg PO DAILY Rosuvastatin [Crestor] 20 mg PO HS Dapagliflozin Propanediol [Farxiga] 10 mg PO DAILY Discharge Medication List Isosorbide Mononitrate [Isosorbide Mononitrate ER] 30 mg PO DAILY 12/10/15 [History] Lisinopril [Zestril] 20 mg PO DAILY 12/10/15 [History] Metoprolol Tartrate [Lopressor] 50 mg PO BID 12/10/15 [History] Omeprazole 20 mg PO BID 12/10/15 [History] metFORMIN HCL [Glucophage] 500 mg PO TID 12/10/15 [History] Dapagliflozin Propanediol [Farxiga] 10 mg PO DAILY 12/09/18 [History] Rosuvastatin [Crestor] 20 mg PO HS 12/09/18 [History] Follow up Appointment(s)/Referral(s): Shraddha العلي MD [Primary Care Provider] - 12/18/18 2:00 pm () [place] Ferreira MD [STAFF PHYSICIAN] - 1 Week (Spoke to secretary receptionist. Office will call with appointment time) Patient Instructions/Handouts: *Surgery [facility] - After Heart Catheterization - Manager Budget Instructions, Left Heart Catheterization (DC) Discharge Disposition: HOME SELF-CARE
[2018-12-11 11:36] LABS: Glucose,Whole Blood 188 mg/dL (75-99)
[2018-12-11 12:08] VITALS: BP 112/68; PULSE 54; TEMP 98
--- NOTE | 2018-12-11 14:24 | P.PN ---
Subjective Progress Note Date: 12/11/18 This is a pleasant 63-year-old gentleman who has a known history of coronary artery disease, he states that he had a stent placed approximately 20 years ago, history of diabetes, hypertension, hyperlipidemia, he also has a prior history of smoking but quit several years ago. Strong family history of premature coronary artery disease in his siblings. Patient did just recently lose a brother. Patient presents to the hospital with symptoms of chest discomfort. Approximately 2 days ago he started having discomfort in his right arm, he described it as a throbbing sensation, he did state that he took 3 aspirins, the symptoms seemed to improve. He slept well that night, went to work the following day, and states that he had midsternal chest discomfort, if he would sit down and rest the symptoms would subside and every time he would go back to work or walking the symptoms would return. They progressively worsened through the day to the point where he states he had a heartburn sensation similar to his prior episode when he had a stent placed. He went and spoke with his boss and EMS was called patient was brought directly to the hospital. Chest x-ray does not reveal any active disease. EKG shows a normal sinus rhythm with no acute changes noted. Blood pressure on arrival here 154/100 with a heart rate in the 60s, 97% on room air. I pressure this morning 145/80 with a heart rate in the 70s, 98% on 2 L of oxygen. Blood cell count 6.5, hemoglobin 15.9, platelet count 125. Sodium 139, potassium 4.5, BUN 15 and creatinine 0.8. Troponin 0.55, 0.72, 0.68. Magnesium 1.6. According to the patient, he has not been taking an aspirin a day, he states he has actually not even been taking his cholesterol pill as he should've been. His other home medications listed include Glucophage, Crestor 20 mg daily which she states he has not been taking, Lopressor 50 mg twice a day, Zestril 20 mg daily, Imdur 30 mg daily. At the time of my examination in the emergency room, patient is currently chest pain- free. He has been advised today to undergo cardiac catheterization, the risks and the benefits were explained to the patient in detail and he is willing to proceed. Patient has not followed up with a liaison planner according to him in over 15 years. 12/11/2017 Patient was taken to the cardiac catheterization lab yesterday, he underwent a cardiac catheterization by Dr. marie daley, subsequent to that patient underwent successful stenting of a complex calcified eccentric lesion involving the proximal right coronary artery from 99% to 0%. The mid LAD was also noted to have a 50% stenosis. Patient was seen and examined this morning, overall he is feeling well. Denies any chest pain or difficulty in breathing. He's been up ambulating without any difficulty. Hemodynamically stable. From our perspective he may be able to be discharged home today, we'll make a follow-up appointment for him to see Dr. VC Ferreira in the office in one week. Objective - Vital Signs Vital signs: Vital Signs Temp 98.0 F 12/11/18 11:40 Pulse 54 L 12/11/18 11:40 Resp 18 12/11/18 11:40 BP 112/68 12/11/18 11:40 Pulse Ox 98 12/11/18 11:40 Intake & Output 12/10/18 12/11/18 12/11/18 18:59 06:59 18:59 Intake Total 784.452 3074 240 Output Total 300 300 400 Balance 203.759 700 -160 Weight 78.41 kg 78.41 kg Intake: IV 395 1000 Sodium Chloride 0.9% 1, 0 1000 000 ml @ 100 mls/hr IV . Q10H MAUREEN Rx#:[id number] Intake, IV Titration 108.759 Amount Heparin Sod,Pork in 0.45% 108.759 NaCl 25,000 unit In 0.45 % NaCl 1 250ml.bag @ 12 UNITS/KG/HR 9.471 mls/hr IV .Q24H MAUREEN Rx#: [id number] Oral 240 Output: Urine 300 300 400 Other: Voiding Method Urinal # Voids 1 1 1 - Exam PHYSICAL EXAMINATION: GENERAL: 63-year-old gentleman in no acute distress at the time of my examination HEENT: Head is atraumatic, normocephalic. Pupils equal, round. Sclera anicteric. Conjunctiva are clear. Mucous membranes of the mouth are moist. Neck is supple. There is no elevated jugular venous pressure. No carotid bruit is heard. HEART EXAMINATION: Heart S1, S2 normal. No murmur or gallop heard. CHEST EXAMINATION: Lungs are clear to auscultation and precussion. No chest wall tenderness is noted on palpation or with deep breathing. ABDOMEN: Soft, nontender. Bowel sounds are heard. No organomegaly noted. EXTREMITIES: 2+ peripheral pulses with no evidence of peripheral edema and no calf tenderness noted. Right groin Is soft, no evidence of any hematoma. NEUROLOGIC patient is awake, alert and oriented X 3 . - Labs CBC & Chem 7: 12/11/18 06:57 12/11/18 06:57 Labs: Abnormal Lab Results - Last 24 Hours (Table) 12/10/18 12/10/18 12/10/18 Range/Units 08:42 16:15 17:01 Plt Count (150-450) k/uL Glucose (74-99) mg/dL POC Glucose (mg/dL) 128 H 118 H (75-99) mg/dL Hemoglobin A1c 8.8 H (4.0-6.0) % Triglycerides (<150) mg/dL Cholesterol (<200) mg/dL HDL Cholesterol (40-60) mg/dL 12/10/18 12/11/18 12/11/18 Range/Units 20:51 05:55 06:57 Plt Count (150-450) k/uL Glucose 196 H (74-99) mg/dL POC Glucose (mg/dL) 236 H 225 H (75-99) mg/dL Hemoglobin A1c (4.0-6.0) % Triglycerides 644 H (<150) mg/dL Cholesterol 242 H (<200) mg/dL HDL Cholesterol 34 L (40-60) mg/dL 12/11/18 12/11/18 Range/Units 06:57 11:24 Plt Count 128 L (150-450) k/uL Glucose (74-99) mg/dL POC Glucose (mg/dL) 188 H (75-99) mg/dL Hemoglobin A1c (4.0-6.0) % Triglycerides (<150) mg/dL Cholesterol (<200) mg/dL HDL Cholesterol (40-60) mg/dL Assessment and Plan Plan: Assessment and plan #1 non-Q-wave [place] status post angioplasty and stenting of the right coronary artery, 50% LAD lesion also present. #2 known history of coronary artery disease with prior stent placement approximately 20 years ago #3 hypertension #4 hyperlipidemia #5 diabetes #6 prior history of smoking Plan Cardiology's perspective, patient may be able to be discharged home today. We'll make him a follow-up appointment to see Dr. VC Ferreira in the office one week post discharge. He's been educated regarding the importance of taking his medications regularly and irregular follow-up in the office. DNP note has been reviewed, I agree with a documented findings and plan of care. Patient was seen and examined.
[2018-12-11] MEDS ORDERED: INSULIN ASPART (NovoLOG) 100 UNIT/ML VIAL SQ SCH (21:30)
== END 2018-12-11 13:57 | disposition home or self-care (01) | DRG 247 ==
LOC: EC 23:21 → 3SCARD 12-10 00:25
PROVIDERS: ADMIT Internal Medicine; ATTEND Internal Medicine
PROC: B2151ZZ Fluoroscopy of Left Heart using Low Osmolar Contrast (ICD-10-PCS; 2018-12-10)
PROC: 027034Z Dilation of Coronary Artery, One Artery with Drug-eluting Intraluminal Device, Percutaneous Approach (ICD-10-PCS; principal; 2018-12-10 12:00)
PROC: B2111ZZ Fluoroscopy of Multiple Coronary Arteries using Low Osmolar Contrast (ICD-10-PCS; 2018-12-10 12:00)
DX: I21.4 Non-ST elevation (NSTEMI) myocardial infarction (principal); E11.9 Type 2 diabetes mellitus without complications; I25.10 Atherosclerotic heart disease of native coronary artery without angina pectoris; E78.5 Hyperlipidemia, unspecified; I10 Essential (primary) hypertension; I25.2 Old myocardial infarction; T39.016A Underdosing of aspirin, initial encounter; T46.6X6A Underdosing of antihyperlipidemic and antiarteriosclerotic drugs, initial encounter; Z91.128 Patient's intentional underdosing of medication regimen for other reason; Z79.84 Long term (current) use of oral hypoglycemic drugs; Z79.899 Other long term (current) drug therapy; Z95.5 Presence of coronary angioplasty implant and graft; Z87.891 Personal history of nicotine dependence; Z90.49 Acquired absence of other specified parts of digestive tract; Z88.5 Allergy status to narcotic agent; Z91.040 Latex allergy status; Z82.49 Family history of ischemic heart disease and other diseases of the circulatory system; Z82.3 Family history of stroke
CPT/HCPCS: 36415; 71046; 80048; 80053; 80061; 83036; 83735; 84484; 85025; 85610; 85730; 93005; 93306; 93458; 96365; 96366; 96376; 99291; C1874

== ENCOUNTER → 2019-01-27 | Outpatient (CLI) | payer OTHER | END | disposition home or self-care (01) | LOC: LABWHC1 11:06 | PROVIDERS: ATTEND Internal Medicine Cardiovascular Disease | DX: I25.10 Atherosclerotic heart disease of native coronary artery without angina pectoris (principal) | CPT/HCPCS: 36415; 83704 ==

== ENCOUNTER → 2020-01-06 | Outpatient (CLI) | payer OTHER ==
[2020-01-06 21:14] LABS: African American GFR (CKD) 82.9 (60.0-200.0); Anion Gap 12.1 mmol/L (4.00-12.00); BUN/Creat Ratio 12.73 Ratio (12.00-20.00); Calcium 9.2 mg/dL (8.7-10.3); Carbon Dioxide 20.9 mmol/L (21.6-31.8); Non-African American GFR(CKD) 71.6 (60.0-200.0); Potassium 4.8 mmol/L (3.5-5.5)
[2020-01-06 21:55] LABS: Hemoglobin A1C 10.4 % (4.0-6.0)
== END | disposition home or self-care (01) ==
LOC: LABWHC1 13:31
PROVIDERS: ATTEND Internal Medicine
DX: I10 Essential (primary) hypertension (principal); E11.9 Type 2 diabetes mellitus without complications
CPT/HCPCS: 36415; 80048; 83036

== ENCOUNTER → 2020-02-15 | Outpatient (CLI) | payer OTHER | LOC: LABWHC1 11:15 | PROVIDERS: ATTEND Student in an Organized Health Care Education/Training Program | DX: U07.1 COVID-19 (principal) ==

== ENCOUNTER → 2020-02-19 | Day surgery (SDC) | payer OTHER ==
[2020-02-16 15:16] VITALS: BMI 30.5
[~2020-02-19] MED LIST: LACTATED RINGERS 1,000 ML IV SCH; LIDOCAINE 1% (10MG/ML) FOR IV START INTRADERMA PRN; MIDAZOLAM 2 MG/2 ML VIAL ONE; PROPOFOL 10 MG/ML 20 ML VIAL IV ONE; fentaNYL (PF) 50 MCG/ML 2 ML AMP ONE
[2020-02-19 07:18] VITALS: RESP 16; TEMP 98.7
[2020-02-19 07:46] LABS: Glucose,Whole Blood 171 mg/dL (75-99)
--- NOTE | 2020-02-19 08:19 | P.OP ---
Date of Procedure: 02/19/20 Preoperative Diagnosis: Screening Postoperative Diagnosis: Colitis, diverticulosis, cecal polyp, sigmoid polyp Procedure(s) Performed: Colonoscopy with hot snare polypectomy and cold forceps biopsy Anesthesia: MAC Surgeon: Klever Olmedo Estimated Blood Loss (ml): 0 Condition: stable Disposition: PACU Description of Procedure: Patient is brought operative suite placed in left lateral decubitus position underwent sedation per department of anesthesia timeout performed correct patient correct procedure correct site was verified rectal exam was performed no gross abnormalities are noted the scope was passed from the rectum to the cecum with ease. There was a cecal polyp that was small pedunculated it was removed via hot snare polypectomy sent to pathology. There was also multiple ulcerations and colitis noted within the cecum, cold forceps biopsy of this was taken. The scope was slowly withdrawn from the cecum being sure to visualize all nolan of the colon on the way out. There was colitis also noted in the ascending colon biopsy of this was taken. There is diverticulosis noted within the sigmoid colon there is also a small sigmoid polyp noted this was removed via hot snare polypectomy and there was colitis noted within the sigmoid colon biopsy was taken random biopsy of the rectum was also taken scope was retroflexed and no other gross abnormalities are noted scope was removed patient tolerated procedure well no apparent complications
[2020-02-19 08:27] VITALS: BP 121/72; PULSE 54
== END ==
LOC: ORWHC2ENDO 06:43
PROVIDERS: ATTEND Student in an Organized Health Care Education/Training Program
DX: K52.9 Noninfective gastroenteritis and colitis, unspecified (principal); K57.30 Diverticulosis of large intestine without perforation or abscess without bleeding; K63.3 Ulcer of intestine; D12.0 Benign neoplasm of cecum; K63.5 Polyp of colon; K62.89 Other specified diseases of anus and rectum; E78.00 Pure hypercholesterolemia, unspecified; E11.9 Type 2 diabetes mellitus without complications; I25.2 Old myocardial infarction; K08.89 Other specified disorders of teeth and supporting structures; I25.10 Atherosclerotic heart disease of native coronary artery without angina pectoris; I10 Essential (primary) hypertension; E78.5 Hyperlipidemia, unspecified; K21.9 Gastro-esophageal reflux disease without esophagitis; Z86.010 Personal history of colon polyps; Z87.19 Personal history of other diseases of the digestive system; Z98.890 Other specified postprocedural states; Z95.5 Presence of coronary angioplasty implant and graft; Z79.899 Other long term (current) drug therapy; Z79.84 Long term (current) use of oral hypoglycemic drugs; Z79.02 Long term (current) use of antithrombotics/antiplatelets; Z79.82 Long term (current) use of aspirin; Z88.5 Allergy status to narcotic agent; Z91.040 Latex allergy status; Z80.0 Family history of malignant neoplasm of digestive organs; Z83.3 Family history of diabetes mellitus; Z82.49 Family history of ischemic heart disease and other diseases of the circulatory system
CPT/HCPCS: 88305; 45380; 45385; J2250; J3010; J2704

== ENCOUNTER → 2020-07-04 | Outpatient (CLI) | payer OTHER ==
[2020-07-04 12:49] LABS: Basophils # (A) 0.1 k/uL (0-0.2); Basophils % (A) 1 %; Eosinophils # (A) 0.2 k/uL (0-0.7); Eosinophils % (A) 3 %; HCT 46.2 % (39.0-53.0); HGB 15.6 gm/dL (13.0-17.5); Lymphocytes # (A) 1.2 k/uL (1.0-4.8); Lymphocytes % (A) 28 %; MCH 31.4 pg (25.0-35.0); MCHC 33.7 g/dL (31.0-37.0); MCV 93.4 fL (80.0-100.0); Mean Platelet Volume 8.6; Monocytes # (A) 0.3 k/uL (0-1.0); Monocytes % (A) 6 %; Neutrophils # (A) 2.7 k/uL (1.3-7.7); Neutrophils % (A) 61 %; Platelet Count 114 k/uL (150-450); RBC 4.95 m/uL (4.30-5.90); RDW 13.9 % (11.5-15.5); WBC 4.4 k/uL (3.8-10.6)
[2020-07-04 12:58] LABS: African American GFR (CKD) >90 (>60 ml/min/1.73 sqM); Anion Gap 9 mmol/L; Blood Urea Nitrogen 10 mg/dL (9-20); Calcium 9.2 mg/dL (8.4-10.2); Carbon Dioxide 25 mmol/L (22-30); Chloride 102 mmol/L (98-107); Glucose 174 mg/dL (74-99); Non-African American GFR(CKD) >90 (>60 ml/min/1.73 sqM); Sodium 136 mmol/L (137-145)
== END | disposition home or self-care (01) ==
LOC: LABPAT 11:42
PROVIDERS: ATTEND Urology
DX: Z01.818 Encounter for other preprocedural examination (principal); N47.1 Phimosis; E11.9 Type 2 diabetes mellitus without complications; I10 Essential (primary) hypertension
CPT/HCPCS: 36415; 80048; 85025; 93005

== ENCOUNTER 2020-07-06 08:31 | Day surgery (SDC) | payer OTHER ==
[2020-07-04 15:00] VITALS: BMI 31.4
--- NOTE | 2020-07-05 14:14 | P.GSHP ---
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 He comes for a circumcision - Constitutional Constitutional: Denies chills, Denies fever - EENT Eyes: denies blurred vision, denies pain Ears, nose, mouth and throat: Denies headache, Denies sore throat - Cardiovascular Cardiovascular: Denies chest pain, Denies shortness of breath - Respiratory Respiratory: Denies cough, Denies 7 - Gastrointestinal Gastrointestinal: Denies abdominal pain, Denies diarrhea, Denies nausea, Denies vomiting - Genitourinary (Female) Genitourinary: Denies dysuria, Denies hematuria - Genitourinary (Male) Genitourinary: Denies dysuria, Denies hematuria - Musculoskeletal Musculoskeletal: Denies myalgias - Integumentary Integumentary: Denies pruritus, Denies rash - Neurological Neurological: Denies numbness, Denies weakness - Psychiatric Psychiatric: Denies anxiety, Denies depression - Endocrine Endocrine: Denies fatigue, Denies weight change Past Medical History Past Medical History: Diabetes Mellitus, GERD/Reflux, Hyperlipidemia, Hypertension, Myocardial Infarction ([place]) Additional Past Medical History / Comment(s): 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 Nocturia. Phimosis currently. Last Myocardial Infarction Date:: 1998 History of Any Multi-Drug Resistant Organisms: None Reported Past Surgical History: Appendectomy, Heart Catheterization With Stent Additional Past Surgical History / Comment(s): Heart cath w/ stent. Colonoscopy. Past Anesthesia/Blood Transfusion Reactions: No Reported Reaction Date of Last Stent Placement:: 1998 Smoking Status: Former smoker - Past Family History Brother(s) Family Medical History: Cancer Additional Family Medical History / Comment(s): colon cancer Father Family Medical History: Cancer Mother Family Medical History: Cancer Medications and Allergies Home Medications Medication Instructions Recorded Confirmed Type Metoprolol Tartrate [Lopressor] 50 mg PO BID 12/10/15 07/04/20 History Omeprazole 20 mg PO DAILY@1400 12/10/15 07/04/20 History lisinopriL [Zestril] 20 mg PO DAILY 12/10/15 07/04/20 History metFORMIN HCL [Glucophage] 500 mg PO TID 12/10/15 07/04/20 History Dapagliflozin Propanediol [Farxiga] 10 mg PO DAILY 12/09/18 07/04/20 History Aspirin 81 mg PO DAILY #30 chew 12/11/18 07/04/20 Rx Nitroglycerin Sl Tabs [Nitrostat] 0.4 mg SUBLINGUAL Q5M PRN #25 tab 12/11/18 07/04/20 Rx Glimepiride [Amaryl] 2 mg PO [id number] 02/16/20 07/04/20 History Rosuvastatin Calcium 40 mg PO HS 02/16/20 07/04/20 History Allergies Allergy/AdvReac Type Severity Reaction Status Date / Time Latex, Natural Rubber Allergy Rash/Hives Verified 07/04/20 14:28 codeine AdvReac Rapid Verified 07/04/20 14:28 Heart Rate meperidine HCl [From Demerol] AdvReac Rapid Verified 07/04/20 14:28 Heart Rate Surgical - Exam - General well developed, well nourished, no distress - Eyes PERRL - ENT no hearing loss - Neck trachea midline - Respiratory normal expansion, normal respiratory effort - Cardiovascular Rhythm: regular - Abdomen Abdomen: soft - Genitourinary tight phimosis with the inability of foreskin retraction normal penis with no external lesions, testicles present - Integumentary no rash, no growths - Neurologic normal coordination, normal sensation - Musculoskeletal normal posture - Psychiatric oriented to time, oriented to place, speech is normal, memory intact Assessment and Plan Assessment: Impression: Phimosis[tight], DM Plan Circumcision
[~2020-07-06 08:31] MED LIST changes: +DEXAMETHASONE SOD PHOSPHATE 4 MG/ML 1 ML VIAL IV ONE; +HYDROmorphone 0.5 MG/0.5 ML SYRINGE IVP PRN; +MIDAZOLAM 2 MG/2 ML VIAL IV PRN; -MIDAZOLAM 2 MG/2 ML VIAL ONE; -PROPOFOL 10 MG/ML 20 ML VIAL IV ONE; -fentaNYL (PF) 50 MCG/ML 2 ML AMP ONE
[2020-07-06 09:26] VITALS: RESP 16; TEMP 97.3
[2020-07-06 09:56] LABS: Glucose,Whole Blood 164 mg/dL (75-99)
[2020-07-06] MEDS ORDERED: ONDANSETRON 4 MG/2 ML VIAL ONE (09:57)
[2020-07-06] MEDS ORDERED: ONDANSETRON 4 MG/2 ML VIAL IVP ONE (10:05)
[2020-07-06] MEDS ORDERED: DEXAMETHASONE SOD PHOSPHATE 4 MG/ML 1 ML VIAL IVP ONE (10:05)
[2020-07-06] MEDS ORDERED: fentaNYL (PF) 50 MCG/ML 2 ML AMP ONE (10:53)
[2020-07-06] MEDS ORDERED: GLYCOPYRROLATE 0.2 MG/ML 2 ML VIAL ONE (10:53)
[2020-07-06] MEDS ORDERED: PROPOFOL 10 MG/ML 20 ML VIAL IV ONE (10:53)
[2020-07-06] MEDS ORDERED: MIDAZOLAM 2 MG/2 ML VIAL ONE (10:53)
[2020-07-06] MEDS ORDERED: KETAMINE 10 MG/ML 20 ML VIAL ONE (10:53)
[2020-07-06] MEDS ORDERED: BUPIVACAINE (PF) 0.5% 30 ML VIAL SQ ONE (11:05)
[2020-07-06] MEDS ORDERED: LIDOCAINE 2% INJ 20 MG/ML SQ ONE (11:05)
[2020-07-06] MEDS ORDERED: BACITRACIN ZINC 500 UNIT/GM OINT 28.4 GM TUBE TOPICAL ONE (11:28)
--- NOTE | 2020-07-06 11:35 | P.OP ---
Date of Procedure: 07/06/20 Preoperative Diagnosis: Phimosis Postoperative Diagnosis: Same Procedure(s) Performed: Circumcision Anesthesia: MAC, local Surgeon: Eduardo Perdomo Estimated Blood Loss (ml): 20 Pathology: other (Foreskin) Condition: stable Disposition: PACU Indications for Procedure: The patient is 64. He is diabetic. He has had phimosis for 4 years. He cannot retract his foreskin. He comes for circumcision Description of Procedure: Patient about the operating suite. He's placed on the operating table supine position. IV sedation is administered. A sterile prep and drape was administered. A penile block with 20 mL of a 50-50 mixture of 2% Xylocaine and half percent Marcaine both plain is administered. After an adequate penile block the redundant foreskin was excised. It is reapproximated to the subcoronal skin with 2 running 4/0 chromic's. The end of the procedure the wound is dressed with bacitracin and a Michelle the patient awake and returned recovery in good condition. Blood loss is approximately 20 mL. He tolerated procedure well be discharged home upon recovery and found the office in one week.
[2020-07-06 11:38] VITALS: PULSE 63
[2020-07-06 11:59] VITALS: BP 160/80
== END 2020-07-06 12:45 | disposition home or self-care (01) ==
LOC: OR 08:31
PROVIDERS: ATTEND Urology
DX: N47.1 Phimosis (principal); N47.6 Balanoposthitis; N47.7 Other inflammatory diseases of prepuce; I25.2 Old myocardial infarction; I10 Essential (primary) hypertension; E78.5 Hyperlipidemia, unspecified; K21.9 Gastro-esophageal reflux disease without esophagitis; E11.9 Type 2 diabetes mellitus without complications; Z91.040 Latex allergy status; Z88.5 Allergy status to narcotic agent; Z79.82 Long term (current) use of aspirin; Z79.84 Long term (current) use of oral hypoglycemic drugs; Z79.899 Other long term (current) drug therapy; Z80.9 Family history of malignant neoplasm, unspecified; Z80.0 Family history of malignant neoplasm of digestive organs; Z87.891 Personal history of nicotine dependence; Z95.5 Presence of coronary angioplasty implant and graft; Z98.890 Other specified postprocedural states; Z90.49 Acquired absence of other specified parts of digestive tract
CPT/HCPCS: 88304; 54161; J2001; J2250; J1100; J2405; J0690; J3010; J2704

== ENCOUNTER 2020-09-23 23:01 | Emergency (ER) | payer BC, OTHER ==
[2020-09-23 23:14] VITALS: TEMP 98.5
[2020-09-23] MEDS ORDERED: SODIUM CHLORIDE 0.9% 500 ML 500 ML IV STA (23:17)
--- NOTE | 2020-09-23 23:41 | ED ---
General Adult HPI - General Chief complaint: Dizziness Stated complaint: Syncope, head injury Time Seen by Provider: 09/23/20 23:16 Source: patient, family Mode of arrival: wheelchair Limitations: no limitations - History of Present Illness Initial comments: This patient is a 65-year-old man who presents to be evaluated after he had a syncopal episode and head injury. The patient states that he had been in his kitchen yesterday probably around 10 PM, and then recalls regaining consciousness on the floor. He apparently had fallen striking a glass range and cracking that before ending up on the floor with a laceration to the occipital scalp. The patient believes that it may be due to his blood sugar being elevated. Changed to his insurance he has not been able to take his usual regimen which included Farxiga. He has continued the other medications the state that his blood sugar has been running as high as 300 on some days. Patient denying chest pain, dyspnea, diaphoresis. Patient states that his last tetanus shot was some 10 years ago when he had a thumb laceration. Onset/Timin -: hour(s) Location: head Radiation: non-radiation Quality: aching Consistency: constant Improves with: none Worsens with: none Associated Symptoms: syncope Treatments Prior to Arrival: none - Related Data Home Medications Medication Instructions Recorded Confirmed Metoprolol Tartrate [Lopressor] 50 mg PO BID 12/10/15 07/04/20 Omeprazole 20 mg PO DAILY@1400 12/10/15 07/04/20 lisinopriL [Zestril] 20 mg PO DAILY 12/10/15 07/04/20 metFORMIN HCL [Glucophage] 500 mg PO TID 12/10/15 07/04/20 Dapagliflozin Propanediol [Farxiga] 10 mg PO DAILY 12/09/18 07/04/20 Glimepiride [Amaryl] 2 mg PO AC-BRKFST 02/16/20 07/04/20 Rosuvastatin Calcium 40 mg PO HS 02/16/20 07/04/20 Previous Rx's Medication Instructions Recorded Aspirin 81 mg PO DAILY #30 chew 12/11/18 Nitroglycerin Sl Tabs [Nitrostat] 0.4 mg SUBLINGUAL Q5M PRN #25 tab 12/11/18 HYDROcodone/APAP 5-325MG [Lamont 1 tab PO Q4HR PRN #14 tab 07/06/20 5-325] Allergies Allergy/AdvReac Type Severity Reaction Status Date / Time Latex, Natural Rubber Allergy Rash/Hives Verified 09/23/20 23:14 codeine AdvReac Rapid Verified 09/23/20 23:14 Heart Rate meperidine HCl [From Demerol] AdvReac Rapid Verified 09/23/20 23:14 Heart Rate Review of Systems ROS Statement: Those systems with pertinent positive or pertinent negative responses have been documented in the HPI. ROS Other: All systems not noted in ROS Statement are negative. Constitutional: Denies: fever, chills, weakness Eyes: Denies: vision change ENT: Denies: ear pain, hearing loss, epistaxis Respiratory: Denies: cough, dyspnea, wheezes Cardiovascular: Reports: syncope. Denies: chest pain, palpitations, orthopnea, edema Gastrointestinal: Denies: abdominal pain, nausea, vomiting, diarrhea Genitourinary: Denies: dysuria, hematuria Musculoskeletal: Reports: other (Chronic neck pain, no change since the injury). Denies: back pain Skin: Denies: rash Neurological: Denies: headache, weakness, numbness, paresthesias, confusion Hematological/Lymphatic: Denies: easy bleeding Past Medical History Past Medical History: Diabetes Mellitus, Hyperlipidemia, Myocardial Infarction ([place]) Last Myocardial Infarction Date:: 1998 History of Any Multi-Drug Resistant Organisms: None Reported Past Surgical History: Appendectomy, Heart Catheterization With Stent Additional Past Surgical History / Comment(s): Heart cath with stent 20 years ago, stent 12/09/2018 Past Anesthesia/Blood Transfusion Reactions: No Reported Reaction Date of Last Stent Placement:: 1998 Past Psychological History: No Psychological Hx Reported Smoking Status: Former smoker Past Alcohol Use History: Daily, Heavy Past Drug Use History: None Reported General Exam Limitations: no limitations General appearance: alert, in no apparent distress Head exam: Present: normocephalic Eye exam: Present: normal appearance, PERRL, EOMI. Absent: scleral icterus, conjunctival injection, nystagmus ENT exam: Present: mucous membranes dry Neck exam: Present: normal inspection, full ROM. Absent: tenderness, meningismus Respiratory exam: Present: normal lung sounds bilaterally. Absent: respiratory distress, wheezes, rales, rhonchi, stridor Cardiovascular Exam: Present: regular rate, normal rhythm, normal heart sounds. Absent: systolic murmur, diastolic murmur, rubs, gallop GI/Abdominal exam: Present: soft, hernia (Umbilical hernia, nontender). Absent: distended, tenderness, guarding, rebound, rigid, mass Extremities exam: Present: normal inspection, normal capillary refill. Absent: pedal edema, calf tenderness Back exam: Present: normal inspection. Absent: CVA tenderness (R), CVA tenderness (L) Neurological exam: Present: alert, oriented X3, CN II-XII intact. Absent: motor sensory deficit Skin exam: Present: warm, dry, normal color, other (Laceration occipital scalp). Absent: rash Course Vital Signs 09/23/20 09/24/20 09/24/20 23:07 00:13 03:12 Temperature 98.5 F Pulse Rate 67 77 65 Respiratory 18 16 12 Rate Blood Pressure 149/86 114/69 169/79 O2 Sat by Pulse 96 97 97 Oximetry EKG Findings - EKG Results: EKG: interpreted by NICOLETTE BURGESS, sinus rhythm (Rate 65 bpm), normal axis, normal QRS, normal ST/T, no acute changes Medical Decision Making - Medical Decision Making Patient is 65-year-old man presenting after he had had a ground-level fall at home with head injury and scalp laceration. We discussed that the age of the injury makes it something which we would not suture given the increased risk of infection. We discussed the appropriate further care for lacerations as well as return parameters. The patient will have family monitoring for signs of infection. - Lab Data Result diagrams: 09/23/20 23:42 09/23/20 23:42 Lab Results 09/23/20 09/23/20 09/23/20 Range/Units 23:42 23:42 23:42 WBC 8.6 (3.8-10.6) k/uL RBC 5.02 (4.30-5.90) m/uL Hgb 15.9 (13.0-17.5) gm/dL Hct 46.6 (39.0-53.0) % MCV 93.0 (80.0-100.0) fL MCH 31.6 (25.0-35.0) pg MCHC 34.0 (31.0-37.0) g/dL RDW 13.5 (11.5-15.5) % Plt Count 157 (150-450) k/uL MPV 9.0 Neutrophils % 71 % Lymphocytes % 20 % Monocytes % 6 % Eosinophils % 2 % Basophils % 1 % Neutrophils # 6.1 (1.3-7.7) k/uL Lymphocytes # 1.7 (1.0-4.8) k/uL Monocytes # 0.5 (0-1.0) k/uL Eosinophils # 0.2 (0-0.7) k/uL Basophils # 0.1 (0-0.2) k/uL Sodium 135 L (137-145) mmol/L Potassium 4.8 (3.5-5.1) mmol/L Chloride 100 (98-107) mmol/L Carbon Dioxide 17 L (22-30) mmol/L Anion Gap 18 mmol/L BUN 12 (9-20) mg/dL Creatinine 0.97 (0.66-1.25) mg/dL Est GFR (CKD-EPI)AfAm >90 (>60 ml/min/1.73 sqM) Est GFR (CKD-EPI)NonAf 83 (>60 ml/min/1.73 sqM) Glucose 200 H (74-99) mg/dL POC Glucose (mg/dL) (75-99) mg/dL POC Glu Cribbing Setter ID Lactic Ac Sepsis Rflx Plasma Lactic Acid Miguel Angel 4.3 H* (0.7-2.0) mmol/L Calcium 9.4 (8.4-10.2) mg/dL Total Bilirubin 0.4 (0.2-1.3) mg/dL AST 65 H (17-59) U/L ALT 40 (4-49) U/L Alkaline Phosphatase 79 (38-126) U/L Troponin I (0.000-0.034) ng/mL Total Protein 6.7 (6.3-8.2) g/dL Albumin 4.2 (3.5-5.0) g/dL Urine Color Urine Appearance (Clear) Urine pH (5.0-8.0) Ur Specific [place] (1.001-1.035) Urine Protein (Negative) Urine Glucose (UA) (Negative) Urine Ketones (Negative) Urine Blood (Negative) Urine Nitrite (Negative) Urine Bilirubin (Negative) Urine Urobilinogen (<2.0) mg/dL Ur Leukocyte Esterase (Negative) Urine RBC (0-5) /hpf Urine WBC (0-5) /hpf Ur Squamous Epith Cells (0-4) /hpf Hyaline Casts (0-2) /lpf Urine Mucus (None) /hpf Serum Alcohol mg/dL Acetone, Qual (Negative) 09/23/20 09/24/20 09/24/20 Range/Units 23:42 00:01 00:09 WBC (3.8-10.6) k/uL RBC (4.30-5.90) m/uL Hgb (13.0-17.5) gm/dL Hct (39.0-53.0) % MCV (80.0-100.0) fL MCH (25.0-35.0) pg MCHC (31.0-37.0) g/dL RDW (11.5-15.5) % Plt Count (150-450) k/uL MPV Neutrophils % % Lymphocytes % % Monocytes % % Eosinophils % % Basophils % % Neutrophils # (1.3-7.7) k/uL Lymphocytes # (1.0-4.8) k/uL Monocytes # (0-1.0) k/uL Eosinophils # (0-0.7) k/uL Basophils # (0-0.2) k/uL Sodium (137-145) mmol/L Potassium (3.5-5.1) mmol/L Chloride (98-107) mmol/L Carbon Dioxide (22-30) mmol/L Anion Gap mmol/L BUN (9-20) mg/dL Creatinine (0.66-1.25) mg/dL Est GFR (CKD-EPI)AfAm (>60 ml/min/1.73 sqM) Est GFR (CKD-EPI)NonAf (>60 ml/min/1.73 sqM) Glucose (74-99) mg/dL POC Glucose (mg/dL) (75-99) mg/dL POC Glu Cribbing Setter ID Lactic Ac Sepsis Rflx Y Plasma Lactic Acid Miguel Angel (0.7-2.0) mmol/L Calcium (8.4-10.2) mg/dL Total Bilirubin (0.2-1.3) mg/dL AST (17-59) U/L ALT (4-49) U/L Alkaline Phosphatase (38-126) U/L Troponin I <0.012 (0.000-0.034) ng/mL Total Protein (6.3-8.2) g/dL Albumin (3.5-5.0) g/dL Urine Color Urine Appearance (Clear) Urine pH (5.0-8.0) Ur Specific [place] (1.001-1.035) Urine Protein (Negative) Urine Glucose (UA) (Negative) Urine Ketones (Negative) Urine Blood (Negative) Urine Nitrite (Negative) Urine Bilirubin (Negative) Urine Urobilinogen (<2.0) mg/dL Ur Leukocyte Esterase (Negative) Urine RBC (0-5) /hpf Urine WBC (0-5) /hpf Ur Squamous Epith Cells (0-4) /hpf Hyaline Casts (0-2) /lpf Urine Mucus (None) /hpf Serum Alcohol 16 mg/dL Acetone, Qual Negative (Negative) 09/24/20 09/24/20 09/24/20 Range/Units 00:21 02:15 03:10 WBC (3.8-10.6) k/uL RBC (4.30-5.90) m/uL Hgb (13.0-17.5) gm/dL Hct (39.0-53.0) % MCV (80.0-100.0) fL MCH (25.0-35.0) pg MCHC (31.0-37.0) g/dL RDW (11.5-15.5) % Plt Count (150-450) k/uL MPV Neutrophils % % Lymphocytes % % Monocytes % % Eosinophils % % Basophils % % Neutrophils # (1.3-7.7) k/uL Lymphocytes # (1.0-4.8) k/uL Monocytes # (0-1.0) k/uL Eosinophils # (0-0.7) k/uL Basophils # (0-0.2) k/uL Sodium (137-145) mmol/L Potassium (3.5-5.1) mmol/L Chloride (98-107) mmol/L Carbon Dioxide (22-30) mmol/L Anion Gap mmol/L BUN (9-20) mg/dL Creatinine (0.66-1.25) mg/dL Est GFR (CKD-EPI)AfAm (>60 ml/min/1.73 sqM) Est GFR (CKD-EPI)NonAf (>60 ml/min/1.73 sqM) Glucose (74-99) mg/dL POC Glucose (mg/dL) (75-99) mg/dL POC Glu Cribbing Setter ID Lactic Ac Sepsis Rflx Y Plasma Lactic Acid Miguel Angel 2.3 H* (0.7-2.0) mmol/L Calcium (8.4-10.2) mg/dL Total Bilirubin (0.2-1.3) mg/dL AST (17-59) U/L ALT (4-49) U/L Alkaline Phosphatase (38-126) U/L Troponin I (0.000-0.034) ng/mL Total Protein (6.3-8.2) g/dL Albumin (3.5-5.0) g/dL Urine Color Yellow Urine Appearance Clear (Clear) Urine pH 5.5 (5.0-8.0) Ur Specific [place] 1.021 (1.001-1.035) Urine Protein 2+ H (Negative) Urine Glucose (UA) 4+ H (Negative) Urine Ketones 1+ H (Negative) Urine Blood Small H (Negative) Urine Nitrite Negative (Negative) Urine Bilirubin Negative (Negative) Urine Urobilinogen <2.0 (<2.0) mg/dL Ur Leukocyte Esterase Negative (Negative) Urine RBC <1 (0-5) /hpf Urine WBC 1 (0-5) /hpf Ur Squamous Epith Cells <1 (0-4) /hpf Hyaline Casts 4 H (0-2) /lpf Urine Mucus Rare H (None) /hpf Serum Alcohol mg/dL Acetone, Qual (Negative) 09/24/20 Range/Units 03:10 WBC (3.8-10.6) k/uL RBC (4.30-5.90) m/uL Hgb (13.0-17.5) gm/dL Hct (39.0-53.0) % MCV (80.0-100.0) fL MCH (25.0-35.0) pg MCHC (31.0-37.0) g/dL RDW (11.5-15.5) % Plt Count (150-450) k/uL MPV Neutrophils % % Lymphocytes % % Monocytes % % Eosinophils % % Basophils % % Neutrophils # (1.3-7.7) k/uL Lymphocytes # (1.0-4.8) k/uL Monocytes # (0-1.0) k/uL Eosinophils # (0-0.7) k/uL Basophils # (0-0.2) k/uL Sodium (137-145) mmol/L Potassium (3.5-5.1) mmol/L Chloride (98-107) mmol/L Carbon Dioxide (22-30) mmol/L Anion Gap mmol/L BUN (9-20) mg/dL Creatinine (0.66-1.25) mg/dL Est GFR (CKD-EPI)AfAm (>60 ml/min/1.73 sqM) Est GFR (CKD-EPI)NonAf (>60 ml/min/1.73 sqM) Glucose (74-99) mg/dL POC Glucose (mg/dL) 164 H (75-99) mg/dL POC Glu Cribbing Setter ID Juan Carlos Westbrook Lactic Ac Sepsis Rflx Plasma Lactic Acid Miguel Angel (0.7-2.0) mmol/L Calcium (8.4-10.2) mg/dL Total Bilirubin (0.2-1.3) mg/dL AST (17-59) U/L ALT (4-49) U/L Alkaline Phosphatase (38-126) U/L Troponin I (0.000-0.034) ng/mL Total Protein (6.3-8.2) g/dL Albumin (3.5-5.0) g/dL Urine Color Urine Appearance (Clear) Urine pH (5.0-8.0) Ur Specific [place] (1.001-1.035) Urine Protein (Negative) Urine Glucose (UA) (Negative) Urine Ketones (Negative) Urine Blood (Negative) Urine Nitrite (Negative) Urine Bilirubin (Negative) Urine Urobilinogen (<2.0) mg/dL Ur Leukocyte Esterase (Negative) Urine RBC (0-5) /hpf Urine WBC (0-5) /hpf Ur Squamous Epith Cells (0-4) /hpf Hyaline Casts (0-2) /lpf Urine Mucus (None) /hpf Serum Alcohol mg/dL Acetone, Qual (Negative) Disposition Clinical Impression: Head injury, Scalp laceration, Hyperglycemia Disposition: HOME SELF-CARE Condition: Fair Instructions (If sedation given, give patient instructions): Dehydration (ED), Head Injury (ED), Diabetic Hyperglycemia (ED) Is patient prescribed a controlled substance at d/c from ED?: No Referrals: Shraddha العلي MD [Primary Care Provider] - 1-2 days
[2020-09-23 23:55] LABS: Basophils # (A) 0.1 k/uL (0-0.2); Basophils % (A) 1 %; Eosinophils # (A) 0.2 k/uL (0-0.7); Eosinophils % (A) 2 %; HCT 46.6 % (39.0-53.0); HGB 15.9 gm/dL (13.0-17.5); Lymphocytes # (A) 1.7 k/uL (1.0-4.8); Lymphocytes % (A) 20 %; MCH 31.6 pg (25.0-35.0); Monocytes # (A) 0.5 k/uL (0-1.0); Monocytes % (A) 6 %; Neutrophils # (A) 6.1 k/uL (1.3-7.7); Neutrophils % (A) 71 %; Platelet Count 157 k/uL (150-450); RBC 5.02 m/uL (4.30-5.90); RDW 13.5 % (11.5-15.5); WBC 8.6 k/uL (3.8-10.6)
[2020-09-24 00:04] LABS: ALT 40 U/L (4-49); AST 65 U/L (17-59); African American GFR (CKD) >90 (>60 ml/min/1.73 sqM); Albumin 4.2 g/dL (3.5-5.0); Alkaline Phosphatase 79 U/L (38-126); Anion Gap 18 mmol/L; Blood Urea Nitrogen 12 mg/dL (9-20); Calcium 9.4 mg/dL (8.4-10.2); Carbon Dioxide 17 mmol/L (22-30); Chloride 100 mmol/L (98-107); Glucose 200 mg/dL (74-99); Non-African American GFR(CKD) 83 (>60 ml/min/1.73 sqM); Potassium 4.8 mmol/L (3.5-5.1); Sodium 135 mmol/L (137-145); Total Bilirubin 0.4 mg/dL (0.2-1.3); Total Protein 6.7 g/dL (6.3-8.2)
--- NOTE | 2020-09-24 00:05 | XR ---
EXAMINATION TYPE: XR chest 2V DATE OF EXAM: 09/23/2020 COMPARISON: 12/09/2018 HISTORY: Chest pain TECHNIQUE: 2 views FINDINGS: Heart and mediastinum are normal. Lungs are clear. Diaphragm is normal. Bony thorax appears normal. IMPRESSION: Normal chest. No change.
[2020-09-24] MEDS ORDERED: SODIUM CHLORIDE 0.9% 1,000 ML IV ONE (00:10)
--- NOTE | 2020-09-24 00:11 | CT ---
EXAMINATION TYPE: CT brain wo con DATE OF EXAM: 09/24/2020 COMPARISON: None HISTORY: Syncope CT DLP: 1103.40 mGycm Automated exposure control for dose reduction was used. Ventricles have normal size. There is no mass effect nor midline shift. There is no sign of intracran ial hemorrhage. The calvarium is intact. There is no evidence of cerebral edema. Skull base is intact . IMPRESSION: Normal unenhanced head CT scan.
[2020-09-24 00:25] LABS: Alcohol 16 mg/dL
[2020-09-24 01:11] LABS: Appearance,Urine Clear (Clear); Bilirubin,Urine Negative (Negative); Blood,Urine Small (Negative); Color,Urine Yellow; Glucose,Urine (UA) 4+ (Negative); Hyaline Casts,Urine 4 /lpf (0-2); Ketones,Urine 1+ (Negative); Leukocyte Esterase,Urine Negative (Negative); Mucus,Urine Rare /hpf; Nitrite,Urine Negative (Negative); PH, Urine 5.5 (5.0-8.0); Protein,Urine 2+ (Negative); RBC,Urine <1 /hpf (0-5); Specific Gravity,Urine 1.021 (1.001-1.035); Squamous Epithelial Cell,Urine <1 /hpf (0-4); Urobilinogen,Urine <2.0 mg/dL (<2.0); WBC,Urine 1 /hpf (0-5)
[2020-09-24] MEDS ORDERED: BACITRACIN OINT 1 EACH PACKET TOPICAL ONE (02:04)
[2020-09-24 03:13] LABS: Glucose,Whole Blood 164 mg/dL (75-99)
[2020-09-24 03:14] VITALS: BP 169/79; PULSE 65; RESP 12
== END 2020-09-24 03:14 | disposition home or self-care (01) ==
LOC: EC 23:01
DX: S01.01XA Laceration without foreign body of scalp, initial encounter (principal); E11.65 Type 2 diabetes mellitus with hyperglycemia; E78.5 Hyperlipidemia, unspecified; I25.2 Old myocardial infarction; Z79.82 Long term (current) use of aspirin; Z79.84 Long term (current) use of oral hypoglycemic drugs; Z87.891 Personal history of nicotine dependence; W01.198A Fall on same level from slipping, tripping and stumbling with subsequent striking against other object, initial encounter
CPT/HCPCS: 36415; 70450; 71046; 80053; 80320; 81001; 82009; 83605; 84484; 85025; 93005; 96360; 99284

== ENCOUNTER 2022-03-16 16:06 | Inpatient (IN) | payer MEDICARE ==
[2022-03-16 17:33] LABS: Glucose,Whole Blood 177 mg/dL (70-110)
[2022-03-16 17:48] LABS: Basophils # (A) 0.1 k/uL (0-0.2); Basophils % (A) 1 %; Eosinophils # (A) 0.2 k/uL (0-0.7); Eosinophils % (A) 2 %; HCT 33.5 % (39.0-53.0); HGB 10.6 gm/dL (13.0-17.5); Hypochromasia Slight; Lymphocytes # (A) 1.6 k/uL (1.0-4.8); Lymphocytes % (A) 23 %; MCH 30.9 pg (25.0-35.0); MCHC 31.8 g/dL (31.0-37.0); MCV 97.2 fL (80.0-100.0); Mean Platelet Volume 8.5; Monocytes # (A) 0.4 k/uL (0-1.0); Monocytes % (A) 6 %; Neutrophils # (A) 4.6 k/uL (1.3-7.7); Neutrophils % (A) 67 %; Platelet Count 173 k/uL (150-450); RBC 3.44 m/uL (4.30-5.90); RDW 13.8 % (11.5-15.5); WBC 6.8 k/uL (3.8-10.6)
[2022-03-16 17:54] LABS: Partial Thromboplastin Time 24.2 sec (22.0-30.0); Prothrombin Time 11.2 sec (9.0-12.0)
[2022-03-16 17:55] LABS: ALT 63 U/L (4-49); AST 146 U/L (17-59); Acetaminophen <10.0 ug/mL; African American GFR (CKD) 12 (>60 ml/min/1.73 sqM); Alcohol <10 mg/dL; Alkaline Phosphatase 139 U/L (38-126); Anion Gap 15 mmol/L; Bilirubin, Delta 0.2 mg/dL (0.0-0.2); Bilirubin,Unconjugated 0.2 mg/dL (0.0-1.1); Blood Urea Nitrogen 23 mg/dL (9-20); Carbon Dioxide 14 mmol/L (22-30); Chloride 108 mmol/L (98-107); Glucose 180 mg/dL (74-99); Lipase 849 U/L (23-300); Non-African American GFR(CKD) 10 (>60 ml/min/1.73 sqM); Potassium 5.7 mmol/L (3.5-5.1); Sodium 137 mmol/L (137-145); Total Bilirubin 0.4 mg/dL (0.2-1.3); Total Protein 6.8 g/dL (6.3-8.2)
[2022-03-16] MEDS ORDERED: SODIUM CHLORIDE 0.9% 1,000 ML IV ONE (19:45)
--- NOTE | 2022-03-16 21:22 | CT ---
EXAMINATION TYPE: CT abdomen pelvis wo con DATE OF EXAM: 03/16/2022 COMPARISON: 01/16/2013 HISTORY: irregular labs WON CT DLP: 679.1 mGycm Automated exposure control for dose reduction was used. Images obtained from the diaphragm to the floor of the pelvis with no contrast. The heart size is normal. No pericardial effusion. Lung bases are clear. No pleural effusion. Liver a nd spleen are intact. No pancreatic mass. The stomach is intact. Gallbladder appears normal. There is no adrenal mass. Kidneys show normal size and contour. There is 1 cm nonobstructing calcific ation in the left renal hilum. The ureters are not dilated. There is no retroperitoneal adenopathy. T he bladder distends smoothly. No inguinal hernia. No free fluid in the pelvis. There is Hernandez cathete r in the urinary bladder. There is no mesenteric edema. No ascites or free air. No bowel obstruction. There are some sigmoid di verticula without diverticulitis. Appendix not seen. No sign of thickened appendix. There is mild mally ateral perinephric fat stranding. Abdominal aorta is atheromatous. The lumbar vertebrae have normal alignment. No compression fracture. Disc spaces are fairly normal. T here is vacuum disc at the L5-S1. The bony pelvis is intact. The hip joints are intact. IMPRESSION: Atherosclerotic vascular disease. Nonobstructing left renal calculus appears new compared to old exam . Appendix not seen. There is some mild fat stranding around the kidneys which is a change compared to old exam. This coul d relate to nephritis.
[2022-03-16] MEDS ORDERED: LORazepam 1 MG TAB PO STA (21:39)
[2022-03-16] MEDS ORDERED: PANTOPRAZOLE 40 MG TABLET PO SCH (21:45)
--- NOTE | 2022-03-16 21:57 | ED ---
General Adult HPI - General Chief complaint: Recheck/Abnormal Lab/Rx Stated complaint: Irregular labs Time Seen by Provider: 03/16/22 18:58 Source: patient Mode of arrival: ambulatory Limitations: no limitations - History of Present Illness Initial comments: 66-year-old male presents to the emergency department for abnormal labs. Was in his primary care office on the and had laboratory studies completed. He received a call today stating that his labs were abnormal and he needed to come to the hospital. Patient is a poor historian and cannot provide much history. Reports that he has diabetes and drinks daily. Denies history of kidney dise ase. Denies any changes in his urination to include dysuria, hematuria or difficulty voiding. Does admit to some diarrhea. No black or bloody stools. No history of prostate disorder. No fevers. Denies any abdominal pain. Reports to a decrease in his water intake. No diuretic use. Does admit to drinking a few beers every day. No other alleviating, precipitating or modifying factors - Related Data Home Medications Medication Instructions Recorded Confirmed Metoprolol Tartrate [Lopressor] 50 mg PO BID 12/10/15 03/16/22 Omeprazole 20 mg PO BID PRN 12/10/15 03/16/22 metFORMIN HCL [Glucophage] 500 mg PO TID 12/10/15 03/16/22 Dapagliflozin Propanediol [Farxiga] 10 mg PO DAILY 12/09/18 03/16/22 Rosuvastatin Calcium 40 mg PO HS 02/16/20 03/16/22 Previous Rx's Medication Instructions Recorded Aspirin 81 mg PO DAILY #30 chew 12/11/18 Nitroglycerin Sl Tabs [Nitrostat] 0.4 mg SUBLINGUAL Q5M PRN #25 tab 12/11/18 Tamsulosin [Flomax] 0.4 mg PO PC-SUPPER 30 Days #30 cap 03/19/22 Allergies Allergy/AdvReac Type Severity Reaction Status Date / Time Latex, Natural Rubber Allergy Rash/Hives Verified 03/16/22 22:40 codeine AdvReac Rapid Verified 03/16/22 22:40 Heart Rate meperidine HCl [From Demerol] AdvReac Rapid Verified 03/16/22 22:40 Heart Rate Review of Systems ROS Statement: Those systems with pertinent positive or pertinent negative responses have been documented in the HPI. ROS Other: All systems not noted in ROS Statement are negative. Past Medical History Past Medical History: Diabetes Mellitus, Hyperlipidemia, Myocardial Infarction ([place]) Last Myocardial Infarction Date:: 1998 History of Any Multi-Drug Resistant Organisms: None Reported Past Surgical History: Appendectomy, Heart Catheterization With Stent Additional Past Surgical History / Comment(s): Heart cath with stent 20 years ago, stent 12/09/2018 Past Anesthesia/Blood Transfusion Reactions: No Reported Reaction Date of Last Stent Placement:: 1998 Past Psychological History: No Psychological Hx Reported Smoking Status: Former smoker Past Alcohol Use History: Daily, Heavy Past Drug Use History: None Reported General Exam Limitations: no limitations General appearance: alert, in no apparent distress Head exam: Present: atraumatic, normocephalic, normal inspection Eye exam: Present: normal appearance, PERRL, EOMI. Absent: scleral icterus, conjunctival injection, periorbital swelling ENT exam: Present: normal exam, mucous membranes moist Neck exam: Present: normal inspection. Absent: tenderness, meningismus, lymphadenopathy Respiratory exam: Present: normal lung sounds bilaterally. Absent: respiratory distress, wheezes, rales, rhonchi, stridor Cardiovascular Exam: Present: regular rate, normal rhythm, normal heart sounds. Absent: systolic murmur, diastolic murmur, rubs, gallop, clicks GI/Abdominal exam: Present: soft, normal bowel sounds. Absent: distended, ten derness, guarding, rebound, rigid Extremities exam: Present: normal inspection, full ROM, normal capillary refill. Absent: tenderness, pedal edema, joint swelling, calf tenderness Back exam: Present: normal inspection Neurological exam: Present: alert, oriented X3, CN II-XII intact Psychiatric exam: Present: normal affect, normal mood Skin exam: Present: warm, dry, intact, normal color. Absent: rash Course Vital Signs 03/16/22 03/16/22 03/16/22 16:16 20:25 22:31 Temperature 97.7 F Pulse Rate 76 67 66 Respiratory 18 18 18 Rate Blood Pressure 124/76 143/75 130/61 O2 Sat by Pulse 98 99 98 Oximetry 03/17/22 06:01 Temperature Pulse Rate 60 Respiratory 17 Rate Blood Pressure 116/64 O2 Sat by Pulse 98 Oximetry Medical Decision Making - Medical Decision Making Upon arrival patient was placed into room 23. Laboratory studies had been conducted on the patient even before he was placed in the exam room. I did review these studies which demonstrated an elevation of the patient's potassium to 5.7. Creatinine is 5.4. IV was established and the patient was given a liter bolus of normal saline and 130 mL/h to follow. Hernandez catheter was placed. A CT of the patient's abdomen and pelvis was performed in order to evaluate for obstruction. CT demonstrates no acute findings. I recommended referral to nephrology consultation. Patient was agreeable to this. Spoke with Dr. Nugent who agreed to admit the patient - Lab Data Result diagrams: 03/18/22 06:06 03/19/22 06:03 Lab Results 03/16/22 03/16/22 03/16/22 Range/Units 17:31 17:33 17:33 WBC 6.8 (3.8-10.6) k/uL RBC 3.44 L (4.30-5.90) m/uL Hgb 10.6 L (13.0-17.5) gm/dL Hct 33.5 L (39.0-53.0) % MCV 97.2 (80.0-100.0) fL MCH 30.9 (25.0-35.0) pg MCHC 31.8 (31.0-37.0) g/dL RDW 13.8 (11.5-15.5) % Plt Count 173 (150-450) k/uL MPV 8.5 Neutrophils % 67 % Lymphocytes % 23 % Monocytes % 6 % Eosinophils % 2 % Basophils % 1 % Neutrophils # 4.6 (1.3-7.7) k/uL Lymphocytes # 1.6 (1.0-4.8) k/uL Monocytes # 0.4 (0-1.0) k/uL Eosinophils # 0.2 (0-0.7) k/uL Basophils # 0.1 (0-0.2) k/uL Hypochromasia Slight PT 11.2 (9.0-12.0) sec INR 1.0 (<1.2) APTT 24.2 (22.0-30.0) sec Sodium (137-145) mmol/L Potassium (3.5-5.1) mmol/L Chloride (98-107) mmol/L Carbon Dioxide (22-30) mmol/L Anion Gap mmol/L BUN (9-20) mg/dL Creatinine (0.66-1.25) mg/dL Est GFR (CKD-EPI)AfAm (>60 ml/min/1.73 sqM) Est GFR (CKD-EPI)NonAf (>60 ml/min/1.73 sqM) Glucose (74-99) mg/dL POC Glucose (mg/dL) 177 H (70-110) mg/dL POC Glu Seed Laboratory Technician ID [facility] Calcium (8.4-10.2) mg/dL Total Bilirubin (0.2-1.3) mg/dL Conjugated Bilirubin (0.0-0.3) mg/dL Unconjugated Bilirubin (0.0-1.1) mg/dL Delta Bilirubin (0.0-0.2) mg/dL AST (17-59) U/L ALT (4-49) U/L Alkaline Phosphatase (38-126) U/L Ammonia (<30) umol/L Total Protein (6.3-8.2) g/dL Albumin (3.5-5.0) g/dL Lipase (23-300) U/L Urine Color Urine Appearance (Clear) Urine pH (5.0-8.0) Ur Specific Tennyson (1.001-1.035) Urine Protein (Negative) Urine Glucose (UA) (Negative) Urine Ketones (Negative) Urine Blood (Negative) Urine Nitrite (Negative) Urine Bilirubin (Negative) Urine Urobilinogen (<2.0) mg/dL Ur Leukocyte Esterase (Negative) Urine RBC (0-5) /hpf Urine WBC (0-5) /hpf Amorphous Sediment (None) /hpf Urine Bacteria (None) /hpf Urine Mucus (None) /hpf Acetaminophen ug/mL Serum Alcohol mg/dL 03/16/22 03/16/22 03/16/22 Range/Units 17:33 17:33 21:49 WBC (3.8-10.6) k/uL RBC (4.30-5.90) m/uL Hgb (13.0-17.5) gm/dL Hct (39.0-53.0) % MCV (80.0-100.0) fL MCH (25.0-35.0) pg MCHC (31.0-37.0) g/dL RDW (11.5-15.5) % Plt Count (150-450) k/uL MPV Neutrophils % % Lymphocytes % % Monocytes % % Eosinophils % % Basophils % % Neutrophils # (1.3-7.7) k/uL Lymphocytes # (1.0-4.8) k/uL Monocytes # (0-1.0) k/uL Eosinophils # (0-0.7) k/uL Basophils # (0-0.2) k/uL Hypochromasia PT (9.0-12.0) sec INR (<1.2) APTT (22.0-30.0) sec Sodium 137 (137-145) mmol/L Potassium 5.7 H (3.5-5.1) mmol/L Chloride 108 H (98-107) mmol/L Carbon Dioxide 14 L (22-30) mmol/L Anion Gap 15 mmol/L BUN 23 H (9-20) mg/dL Creatinine 5.49 H (0.66-1.25) mg/dL Est GFR (CKD-EPI)AfAm 12 (>60 ml/min/1.73 sqM) Est GFR (CKD-EPI)NonAf 10 (>60 ml/min/1.73 sqM) Glucose 180 H (74-99) mg/dL POC Glucose (mg/dL) (70-110) mg/dL POC Glu Seed Laboratory Technician ID Calcium 8.0 L (8.4-10.2) mg/dL Total Bilirubin 0.4 (0.2-1.3) mg/dL Conjugated Bilirubin 0.0 (0.0-0.3) mg/dL Unconjugated Bilirubin 0.2 (0.0-1.1) mg/dL Delta Bilirubin 0.2 (0.0-0.2) mg/dL AST 146 H (17-59) U/L ALT 63 H (4-49) U/L Alkaline Phosphatase 139 H (38-126) U/L Ammonia <9 (<30) umol/L Total Protein 6.8 (6.3-8.2) g/dL Albumin 4.0 (3.5-5.0) g/dL Lipase 849 H (23-300) U/L Urine Color Light Yellow Urine Appearance Cloudy (Clear) Urine pH 5.5 (5.0-8.0) Ur Specific [place]yson 1.008 (1.001-1.035) Urine Protein 1+ H (Negative) Urine Glucose (UA) 4+ H (Negative) Urine Ketones Negative (Negative) Urine Blood Moderate H (Negative) Urine Nitrite Negative (Negative) Urine Bilirubin Negative (Negative) Urine Urobilinogen <2.0 (<2.0) mg/dL Ur Leukocyte Esterase Negative (Negative) Urine RBC 1 (0-5) /hpf Urine WBC <1 (0-5) /hpf Amorphous Sediment Rare H (None) /hpf Urine Bacteria Rare H (None) /hpf Urine Mucus Rare H (None) /hpf Acetaminophen <10.0 ug/mL Serum Alcohol <10 mg/dL Disposition Clinical Impression: OWN (acute kidney injury), Hyperkalemia Disposition: ADMITTED IP TO THIS [facility] Condition: Serious Is patient prescribed a controlled substance at d/c from ED?: No Time of Disposition: 22:03 Decision to Admit Reason: Admit from EC Decision Date: 03/16/22 Decision Time: 22:03
[2022-03-16] MEDS ORDERED: NALOXONE 0.4 MG/ML 1 ML VIAL IV PRN (22:03)
[2022-03-16 22:16] LABS: Amorphous Sediment,Urine Rare /hpf; Appearance,Urine Cloudy (Clear); Bacteria,Urine Rare /hpf; Bilirubin,Urine Negative (Negative); Blood,Urine Moderate (Negative); Color,Urine Light Yellow; Glucose,Urine (UA) 4+ (Negative); Ketones,Urine Negative (Negative); Leukocyte Esterase,Urine Negative (Negative); Mucus,Urine Rare /hpf; Nitrite,Urine Negative (Negative); PH, Urine 5.5 (5.0-8.0); Protein,Urine 1+ (Negative); RBC,Urine 1 /hpf (0-5); Specific Gravity,Urine 1.008 (1.001-1.035); Urobilinogen,Urine <2.0 mg/dL (<2.0); WBC,Urine <1 /hpf (0-5)
[2022-03-16] MEDS: SODIUM CHLORIDE 0.9% 1,000 ML IV SCH (22:34)
[2022-03-16] MEDS: metFORMIN 500 MG TAB PO SCH (23:41)
[2022-03-16] MEDS: METOPROLOL TARTRATE 50 MG TAB PO SCH (23:41)
[2022-03-16] MEDS: ATORVASTATIN 80 MG TAB PO SCH (23:41)
[2022-03-16] MEDS ORDERED: PANTOPRAZOLE 40 MG TABLET PO PRN (23:45)
[2022-03-17 07:33] LABS: Glucose,Whole Blood 103 mg/dL (70-110)
[2022-03-17] MEDS: SODIUM CHLORIDE 0.9% 1,000 ML IV SCH (07:47)
[2022-03-17 07:53] LABS: Basophils % (A) 0 %; Eosinophils # (A) 0.1 k/uL (0-0.7); Eosinophils % (A) 1 %; HCT 28.1 % (39.0-53.0); Hypochromasia Slight; Lymphocytes % (A) 17 %; MCH 31.1 pg (25.0-35.0); MCHC 31.9 g/dL (31.0-37.0); MCV 97.7 fL (80.0-100.0); Mean Platelet Volume 8.5; Monocytes # (A) 0.3 k/uL (0-1.0); Monocytes % (A) 6 %; Neutrophils # (A) 4.3 k/uL (1.3-7.7); Neutrophils % (A) 75 %; Platelet Count 139 k/uL (150-450); RBC 2.88 m/uL (4.30-5.90); RDW 13.8 % (11.5-15.5); WBC 5.7 k/uL (3.8-10.6)
[2022-03-17 08:06] LABS: Potassium 5.1 mmol/L (3.5-5.1)
[2022-03-17] MEDS: METOPROLOL TARTRATE 50 MG TAB PO SCH ×2 (09:17→21:14)
[2022-03-17] MEDS: metFORMIN 500 MG TAB PO SCH (09:17)
[2022-03-17] MEDS: ASPIRIN 81 MG PO SCH (09:17)
--- NOTE | 2022-03-17 11:45 | P.NPCON ---
History of Present Illness - Reason for Consult acute renal failure - History of Present Illness Patient is a 66-year-old male who was admitted to the hospital as he was sent after outpatient labs were noted to be abnormal. Patient states that he has not had any issues with his kidneys recently however he was diagnosed with kidney disease at 2-3 years of age. It appears from description that he may have had nephrotic syndrome which subsequently had a spontaneous remission. Serum creatinine was noted to be 7.0 on 03/12/2022 as outpatient and it is at 5.49 yesterday and down to 4.8 today. No history of use of NSAIDs. Patient was maintained on farxiga Blood pressure has been on the lower side Patient was noted to have urine retention in the ER and a Hernandez catheter was placed. 1200 mL of urine as documented. Review of Systems As per HPI other systems negative Past Medical History Past Medical History: Diabetes Mellitus, Hyperlipidemia, Myocardial Infarction ([place]) Last Myocardial Infarction Date:: 1998 History of Any Multi-Drug Resistant Organisms: None Reported Past Surgical History: Appendectomy, Heart Catheterization With Stent Additional Past Surgical History / Comment(s): Heart cath with stent 20 years ago, stent 12/09/2018 Past Anesthesia/Blood Transfusion Reactions: No Reported Reaction Date of Last Stent Placement:: 1998 Past Psychological History: No Psychological Hx Reported Smoking Status: Former smoker Past Alcohol Use History: Daily, Heavy Past Drug Use History: None Reported Medications and Allergies Home Medications Medication Instructions Recorded Confirmed Type Metoprolol Tartrate [Lopressor] 50 mg PO BID 12/10/15 03/16/22 History Omeprazole 20 mg PO BID PRN 12/10/15 03/16/22 History metFORMIN HCL [Glucophage] 500 mg PO TID 12/10/15 03/16/22 History Dapagliflozin Propanediol [Farxiga] 10 mg PO DAILY 12/09/18 03/16/22 History Aspirin 81 mg PO DAILY #30 chew 12/11/18 03/16/22 Rx Nitroglycerin Sl Tabs [Nitrostat] 0.4 mg SUBLINGUAL Q5M PRN #25 tab 12/11/18 03/16/22 Rx Rosuvastatin Calcium 40 mg PO HS 02/16/20 03/16/22 History Allergies Allergy/AdvReac Type Severity Reaction Status Date / Time Latex, Natural Rubber Allergy Rash/Hives Verified 03/16/22 22:40 codeine AdvReac Rapid Verified 03/16/22 22:40 Heart Rate meperidine HCl [From Demerol] AdvReac Rapid Verified 03/16/22 22:40 Heart Rate Physical Exam Vitals: Vital Signs Temp Pulse Pulse Resp BP BP Pulse Ox 03/17/22 06:28 68 17 03/17/22 06:25 98 F 68 17 115/73 100 03/17/22 06:01 60 17 116/64 98 03/16/22 22:31 66 18 130/61 98 03/16/22 20:25 67 18 143/75 99 03/16/22 16:16 97.7 F 76 18 124/76 98 Intake and Output 03/16/22 03/17/22 03/17/22 22:59 06:59 14:59 Intake Total 118 Output Total 1200 Balance -1200 118 Intake: Oral 118 Output: Urine 1200 Other: Voiding Method Indwelling Catheter Weight 77.111 kg Patient is awake, comfortable, not in any acute distress Examination of the heart S1 and S2 Examination lungs bilateral breath sounds are heard Abdomen is soft nontender Examination lower extremities shows no evidence of edema line TUBE CUTTER exam grossly intact Results - Lab Results Most recent lab results Calcium 7.0 mg/dL (8.4-10.2) L 03/17/22 06:29 03/17/22 06:29 03/17/22 06:29 Assessment and Plan Assessment: 1. Acute kidney injury mostly obstructive uropathy. Currently improving. Patient has an indwelling Hernandez catheter and about 1200 mL of urine as documented on initial catheter placement. UA shows 1+ protein and moderate blood, possibly traumatic. CT of the abdomen did not show significant hydronephrosis. 2. Nonobstructing left renal calculus about 1 cm 3. Urine retention currently with indwelling Hernandez catheter 4. Metabolic acidosis associated with acute kidney injury 5. Hyperkalemia associated with urine retention and acute kidney injury and metabolic acidosis 6. Anemia rule out iron deficiency Plan: Switch to IV bicarb Continue with Hernandez catheter Avoid hypotension Repeat labs in a.m. Patient will need to follow-up with urology post discharge.
[2022-03-17] MEDS: DEXTROSE 5% IN WATER 1,000 ML with SODIUM BICARB (1 MEQ/ML) 150 ML IV SCH ×2 (11:53→21:12)
[2022-03-17 13:00] LABS: Glucose,Whole Blood 167 mg/dL (70-110)
[2022-03-17] MEDS: INSULIN ASPART (NovoLOG) 100 UNIT/ML VIAL SQ SCH ×3 (13:44→21:19)
--- NOTE | 2022-03-17 14:06 | P.HPIM ---
History of Present Illness 71-year-old pleasant male was sent in hospital PCP because of abnormal labs patient is found to have highly elevated creatinine of around 5.49 which has come down to 4.8 to patient denied any NSAID use patient is not on any medicati ons that affect the kidney patient is presently not hypotensive patient the baseline creatinine is within normal limits patient urine output is within normal limits patient had history of kidney stones, presently doesn't appear to have a problem. BUN/creatinine ratio is not consistent with prerenal azotemia. Patient had issues with urinary retention in the past patient had postvoid little residuals appears to have same postvoid residuals yesterday after Hernandez cath placement patient had 1200 mL patient presently has Hernandez catheter in place. REVIEW OF SYSTEMS: CONSTITUTIONAL: No fever, no malaise, no fatigue. HEENT: No recent visual problems or hearing problems. Denied any sore throat. CARDIOVASCULAR: No chest pain, orthopnea, PND, no palpitations, no syncope. PULMONARY: No shortness of breath, no cough, no hemoptysis. GASTROINTESTINAL: No diarrhea, no nausea, no vomiting, no abdominal pain. NEUROLOGICAL: No headaches, no weakness, no numbness. HEMATOLOGICAL: Denies any bleeding or petechiae. GENITOURINARY: Denies any burning micturition, frequency, or urgency. MUSCULOSKELETAL/RHEUMATOLOGICAL: Denies any joint pain, swelling, or any muscle pain. ENDOCRINE: Denies any polyuria or polydipsia. The rest of the 14-point review of systems is negative. PHYSICAL EXAMINATION: GENERAL: The patient is alert and oriented x3, not in any acute distress. Well developed, well nourished. HEENT: Pupils are round and equally reacting to light. EOMI. No scleral icterus. No conjunctival pallor. Normocephalic, atraumatic. No pharyngeal erythema. No thyromegaly. CARDIOVASCULAR: S1 and S2 present. No murmurs, rubs, or gallops. PULMONARY: Chest is clear to auscultation, no wheezing or crackles. ABDOMEN: Soft, nontender, nondistended, normoactive bowel sounds. No palpable organomegaly. MUSCULOSKELETAL: No joint swelling or deformity. EXTREMITIES: No cyanosis, clubbing, or pedal edema. NEUROLOGICAL: Gross neurological examination did not reveal any focal deficits. SKIN: No rashes. Assessment and plan -Acute renal failure secondary to obstructive uropathy., Continue with the Hernandez catheter -Medical ACIDOSIS secondary to uremia and hypochloremia for which patient is on bicarbonate drip nephrology evaluated the patient states -nonobstructing left renal calculi -Hyperkalemia secondary to urinary retention any acute renal failure -Mild nonspecific elevation of AST and ALT we'll repeat CMP tomorrow DVT prophylaxis: Subcutaneous heparin Past Medical History Past Medical History: Diabetes Mellitus, Hyperlipidemia, Myocardial Infarction ([place]) Last Myocardial Infarction Date:: 1998 History of Any Multi-Drug Resistant Organisms: None Reported Past Surgical History: Appendectomy, Heart Catheterization With Stent Additional Past Surgical History / Comment(s): Heart cath with stent 20 years ago, stent 12/09/2018 Past Anesthesia/Blood Transfusion Reactions: No Reported Reaction Date of Last Stent Placement:: 1998 Past Psychological History: No Psychological Hx Reported Smoking Status: Former smoker Past Alcohol Use History: Daily, Heavy Past Drug Use History: None Reported Medications and Allergies Home Medications Medication Instructions Recorded Confirmed Type Metoprolol Tartrate [Lopressor] 50 mg PO BID 12/10/15 03/16/22 History Omeprazole 20 mg PO BID PRN 12/10/15 03/16/22 History metFORMIN HCL [Glucophage] 500 mg PO TID 12/10/15 03/16/22 History Dapagliflozin Propanediol [Farxiga] 10 mg PO DAILY 12/09/18 03/16/22 History Aspirin 81 mg PO DAILY #30 chew 12/11/18 03/16/22 Rx Nitroglycerin Sl Tabs [Nitrostat] 0.4 mg SUBLINGUAL Q5M PRN #25 tab 12/11/18 03/16/22 Rx Rosuvastatin Calcium 40 mg PO HS 02/16/20 03/16/22 History Allergies Allergy/AdvReac Type Severity Reaction Status Date / Time Latex, Natural Rubber Allergy Rash/Hives Verified 03/16/22 22:40 codeine AdvReac Rapid Verified 03/16/22 22:40 Heart Rate meperidine HCl [From Demerol] AdvReac Rapid Verified 03/16/22 22:40 Heart Rate Physical Exam Vitals: Vital Signs Temp Pulse Pulse Resp BP BP Pulse Ox 03/17/22 06:28 68 17 03/17/22 06:25 98 F 68 17 115/73 100 03/17/22 06:01 60 17 116/64 98 03/16/22 22:31 66 18 130/61 98 03/16/22 20:25 67 18 143/75 99 03/16/22 16:16 97.7 F 76 18 124/76 98 Intake and Output 03/16/22 03/17/22 03/17/22 22:59 06:59 14:59 Intake Total 118 Output Total 1200 Balance -1200 118 Intake: Oral 118 Output: Urine 1200 Other: Voiding Method Indwelling Catheter Weight 77.111 kg Results CBC & Chem 7: 03/17/22 06:29 03/17/22 06:29 Labs: Abnormal Lab Results - Last 24 Hours (Table) 03/16/22 03/16/22 03/16/22 Range/Units 17:31 17:33 17:33 RBC 3.44 L (4.30-5.90) m/uL Hgb 10.6 L (13.0-17.5) gm/dL Hct 33.5 L (39.0-53.0) % Plt Count (150-450) k/uL Potassium 5.7 H (3.5-5.1) mmol/L Chloride 108 H (98-107) mmol/L Carbon Dioxide 14 L (22-30) mmol/L BUN 23 H (9-20) mg/dL Creatinine 5.49 H (0.66-1.25) mg/dL Glucose 180 H (74-99) mg/dL POC Glucose (mg/dL) 177 H (70-110) mg/dL Calcium 8.0 L (8.4-10.2) mg/dL AST 146 H (17-59) U/L ALT 63 H (4-49) U/L Alkaline Phosphatase 139 H (38-126) U/L Lipase 849 H (23-300) U/L Urine Protein (Negative) Urine Glucose (UA) (Negative) Urine Blood (Negative) Amorphous Sediment (None) /hpf Urine Bacteria (None) /hpf Urine Mucus (None) /hpf 03/16/22 03/17/22 03/17/22 Range/Units 21:49 06:29 06:29 RBC 2.88 L (4.30-5.90) m/uL Hgb 9.0 L D (13.0-17.5) gm/dL Hct 28.1 L (39.0-53.0) % Plt Count 139 L (150-450) k/uL Potassium (3.5-5.1) mmol/L Chloride 113 H (98-107) mmol/L Carbon Dioxide 16 L (22-30) mmol/L BUN 23 H (9-20) mg/dL Creatinine 4.89 H (0.66-1.25) mg/dL Glucose (74-99) mg/dL POC Glucose (mg/dL) (70-110) mg/dL Calcium 7.0 L (8.4-10.2) mg/dL AST (17-59) U/L ALT (4-49) U/L Alkaline Phosphatase (38-126) U/L Lipase (23-300) U/L Urine Protein 1+ H (Negative) Urine Glucose (UA) 4+ H (Negative) Urine Blood Moderate H (Negative) Amorphous Sediment Rare H (None) /hpf Urine Bacteria Rare H (None) /hpf Urine Mucus Rare H (None) /hpf 03/17/22 Range/Units 12:58 RBC (4.30-5.90) m/uL Hgb (13.0-17.5) gm/dL Hct (39.0-53.0) % Plt Count (150-450) k/uL Potassium (3.5-5.1) mmol/L Chloride (98-107) mmol/L Carbon Dioxide (22-30) mmol/L BUN (9-20) mg/dL Creatinine (0.66-1.25) mg/dL Glucose (74-99) mg/dL POC Glucose (mg/dL) 167 H (70-110) mg/dL Calcium (8.4-10.2) mg/dL AST (17-59) U/L ALT (4-49) U/L Alkaline Phosphatase (38-126) U/L Lipase (23-300) U/L Urine Protein (Negative) Urine Glucose (UA) (Negative) Urine Blood (Negative) Amorphous Sediment (None) /hpf Urine Bacteria (None) /hpf Urine Mucus (None) /hpf
[2022-03-17 17:20] LABS: Glucose,Whole Blood 174 mg/dL (70-110)
[2022-03-17 21:11] LABS: Glucose,Whole Blood 172 mg/dL (70-110)
[2022-03-17] MEDS: HEPARIN SODIUM,PORCINE/PF 5,000 UNIT/0.5 ML SYRINGE SQ SCH (21:14)
[2022-03-17] MEDS: ATORVASTATIN 80 MG TAB PO SCH (21:14)
[2022-03-18] MEDS: DEXTROSE 5% IN WATER 1,000 ML with SODIUM BICARB (1 MEQ/ML) 150 ML IV SCH ×2 (03:58→21:29)
[2022-03-18 07:54] LABS: Glucose,Whole Blood 161 mg/dL (70-110)
[2022-03-18] MEDS: INSULIN ASPART (NovoLOG) 100 UNIT/ML VIAL SQ SCH ×4 (09:48→21:29)
[2022-03-18] MEDS: METOPROLOL TARTRATE 50 MG TAB PO SCH ×2 (09:52→21:29)
[2022-03-18] MEDS: HEPARIN SODIUM,PORCINE/PF 5,000 UNIT/0.5 ML SYRINGE SQ SCH ×2 (09:52→21:29)
[2022-03-18] MEDS: ASPIRIN 81 MG PO SCH (09:52)
--- NOTE | 2022-03-18 11:28 | P.PN ---
Subjective Patient is seen for follow-up for acute kidney injury mostly urine retention and currently with indwelling Hernandez catheter. No complaints today Serum creatinine was down to 4.8 yesterday from 7 initially. Labs are pending from today Objective - Vital Signs Vital signs: Vital Signs Temp 98.9 F 03/18/22 08:00 Pulse 60 03/18/22 08:00 Resp 17 03/18/22 08:00 BP 124/71 03/18/22 08:00 Pulse Ox 97 03/18/22 08:00 FiO2 Intake & Output 03/17/22 03/18/22 03/18/22 18:59 06:59 18:59 Intake Total 118 300 118 Output Total 400 500 Balance -282 -200 118 Weight 77.111 kg Intake: Oral 118 300 118 Output: Urine 400 500 Other: Voiding Method Indwelling Catheter Indwelling Catheter # Bowel Movements 1 - Exam Awake, comfortable, not in any acute distress Examination of the heart S1 and S2 Examination lungs bilateral breath sounds are heard Abdomen is soft nontender Examination of the lower extremity shows no evidence of edema STOCK DIGGER exam grossly intact - Labs CBC & Chem 7: 03/17/22 06:29 03/17/22 06:29 Labs: Abnormal Lab Results - Last 24 Hours (Table) 03/17/22 03/17/22 03/17/22 Range/Units 12:58 17:18 21:09 POC Glucose (mg/dL) 167 H 174 H 172 H (70-110) mg/dL 03/18/22 Range/Units 07:53 POC Glucose (mg/dL) 161 H (70-110) mg/dL Assessment and Plan Assessment: 1. Acute kidney injury mostly obstructive uropathy. Currently improving. Patient has an indwelling Hernandez catheter and about 1200 mL of urine as documented on initial catheter placement. UA shows 1+ protein and moderate blood, possibly traumatic. CT of the abdomen did not show significant hydronephrosis. 2. Nonobstructing left renal calculus about 1 cm 3. Urine retention currently with indwelling Hernandez catheter 4. Metabolic acidosis associated with acute kidney injury 5. Hyperkalemia associated with urine retention and acute kidney injury and metabolic acidosis 6. Anemia rule out iron deficiency Plan: Follow-up on labs from today Continue with the sodium bicarb drip for now Add Flomax Continue with Hernandez catheter Patient will need to follow-up with urology post discharge.
[2022-03-18 11:47] LABS: HCT 23.3 % (39.6-50.0); HGB 7.5 g/dL (13.0-17.0); MCHC 32.2 g/dL (32.0-37.0); MCV 96.3 fL (80.0-97.0); Mean Platelet Volume 11.4 fL (9.5-12.2); NRBC Per 100 WBC 0 /100 WBCS (0.0-0.0); Platelet Count 130 X 10*3/uL (140-440); RBC 2.42 X 10*6/uL (4.40-5.60); RDW 14.1 % (11.5-14.5); WBC 5.72 X 10*3/uL (4.50-10.00)
[2022-03-18 11:48] LABS: African American GFR (CKD) 15.7 (60.0-200.0); Albumin/Globulin Ratio 1.5 (1.60-3.17); BUN/Creat Ratio 5.4 Ratio (12.00-20.00); Blood Urea Nitrogen 23.2 mg/dL (9.0-27.0); Calcium 7.2 mg/dL (8.7-10.3); Non-African American GFR(CKD) 13.6 (60.0-200.0); Potassium 4.1 mmol/L (3.5-5.5); Total Bilirubin 0.2 mg/dL (0.30-1.20)
[2022-03-18 12:13] LABS: Glucose,Whole Blood 196 mg/dL (70-110)
--- NOTE | 2022-03-18 13:51 | P.PN ---
Subjective 71-year-old pleasant male was sent in hospital PCP because of abnormal labs patient is found to have highly elevated creatinine of around 5.49 which has come down to 4.8 to patient denied any NSAID use patient is not on any medications that affect the kidney patient is presently not hypotensive patient the baseline creatinine is within normal limits patient urine output is within normal limits patient had history of kidney stones, presently doesn't appear to have a problem. BUN/creatinine ratio is not consistent with prerenal azotemia. Patient had issues with urinary retention in the past patient had postvoid little residuals appears to have same postvoid residuals yesterday after Hernandez cath placement patient had 1200 mL patient presently has Hernandez catheter in place. 03/18/2022 Patient still has indwelling Hernandez catheter is mild improvement in serum creatinine. Patient continues to be on IV fluids. Constitutional: Denied any fatigue denied any fever. Cardio vascular: denied any chest pain, palpitations Gastrointestinal denied any nausea vomiting Pulmonary: Denied any shortness of breath cough Neurologic denied any new focal deficits All inpatient medications were reviewed and appropriate changes in these medications as dictated in the interval history and assessment and plan. PHYSICAL EXAMINATION: GENERAL: The patient is alert and oriented x3, not in any acute distress. Well developed, well nourished. HEENT: Pupils are round and equally reacting to light. EOMI. No scleral icterus. No conjunctival pallor. Normocephalic, atraumatic. No pharyngeal erythema. No thyromegaly. CARDIOVASCULAR: S1 and S2 present. No murmurs, rubs, or gallops. PULMONARY: Chest is clear to auscultation, no wheezing or crackles. ABDOMEN: Soft, nontender, nondistended, normoactive bowel sounds. No palpable organomegaly. MUSCULOSKELETAL: No joint swelling or deformity. EXTREMITIES: No cyanosis, clubbing, or pedal edema. NEUROLOGICAL: Gross neurological examination did not reveal any focal deficits. SKIN: No rashes. Assessment and plan -Acute renal failure secondary to obstructive uropathy., Continue with the Hernandez catheter -Medical ACIDOSIS secondary to uremia and hypochloremia for which patient is on bicarbonate drip nephrology evaluated the patient -nonobstructing left renal calculi -Hyperkalemia secondary to urinary retention any acute renal failure -Mild nonspecific elevation of AST and ALT we'll repeat CMP tomorrow DVT prophylaxis: Subcutaneous heparin Objective - Vital Signs Vital signs: Vital Signs Temp 98.9 F 03/18/22 08:00 Pulse 60 03/18/22 08:00 Resp 17 03/18/22 08:00 BP 124/71 03/18/22 08:00 Pulse Ox 97 03/18/22 08:00 FiO2 Intake & Output 03/17/22 03/18/22 03/18/22 18:59 06:59 18:59 Intake Total 118 300 118 Output Total 400 500 Balance -282 -200 118 Weight 77.111 kg Intake: Oral 118 300 118 Output: Urine 400 500 Other: Voiding Method Indwelling Catheter Indwelling Catheter Indwelling Catheter # Bowel Movements 1 - Labs CBC & Chem 7: 03/18/22 06:06 03/18/22 06:06 Labs: Abnormal Lab Results - Last 24 Hours (Table) 03/17/22 03/17/22 03/18/22 Range/Units 17:18 21:09 06:06 RBC (4.40-5.60) X 10*6/uL Hgb (13.0-17.0) g/dL Hct (39.6-50.0) % Plt Count (140-440) X 10*3/uL Creatinine 4.3 H (0.6-1.5) mg/dL Est GFR (CKD-EPI)AfAm 15.7 L (60.0-200.0) Est GFR (CKD-EPI)NonAf 13.6 L (60.0-200.0) BUN/Creatinine Ratio 5.40 L (12.00-20.00) Ratio Glucose 148 H (70-110) mg/dL POC Glucose (mg/dL) 174 H 172 H (70-110) mg/dL Calcium 7.2 L (8.7-10.3) mg/dL Total Bilirubin 0.20 L (0.30-1.20) mg/dL AST 61 H (14-35) U/L Total Protein 5.0 L (6.2-8.2) g/dL Albumin 3.0 L (3.8-4.9) g/dL Albumin/Globulin Ratio 1.50 L (1.60-3.17) g/dL 03/18/22 03/18/22 03/18/22 Range/Units 06:06 07:53 12:11 RBC 2.42 L (4.40-5.60) X 10*6/uL Hgb 7.5 L (13.0-17.0) g/dL Hct 23.3 L (39.6-50.0) % Plt Count 130 L (140-440) X 10*3/uL Creatinine (0.6-1.5) mg/dL Est GFR (CKD-EPI)AfAm (60.0-200.0) Est GFR (CKD-EPI)NonAf (60.0-200.0) BUN/Creatinine Ratio (12.00-20.00) Ratio Glucose (70-110) mg/dL POC Glucose (mg/dL) 161 H 196 H (70-110) mg/dL Calcium (8.7-10.3) mg/dL Total Bilirubin (0.30-1.20) mg/dL AST (14-35) U/L Total Protein (6.2-8.2) g/dL Albumin (3.8-4.9) g/dL Albumin/Globulin Ratio (1.60-3.17) g/dL
[2022-03-18 17:31] LABS: Glucose,Whole Blood 159 mg/dL (70-110)
[2022-03-18] MEDS ORDERED: TAMSULOSIN 0.4 MG CAP.ER.24H PO SCH (18:30)
[2022-03-18 21:21] LABS: Glucose,Whole Blood 181 mg/dL (70-110)
[2022-03-18] MEDS: ATORVASTATIN 80 MG TAB PO SCH (21:29)
[2022-03-19 07:30] LABS: Glucose,Whole Blood 175 mg/dL (70-110)
[2022-03-19] MEDS: INSULIN ASPART (NovoLOG) 100 UNIT/ML VIAL SQ SCH ×2 (08:30→12:41)
[2022-03-19] MEDS: HEPARIN SODIUM,PORCINE/PF 5,000 UNIT/0.5 ML SYRINGE SQ SCH (08:30)
[2022-03-19] MEDS: DEXTROSE 5% IN WATER 1,000 ML with SODIUM BICARB (1 MEQ/ML) 150 ML IV SCH (08:30)
[2022-03-19] MEDS: METOPROLOL TARTRATE 50 MG TAB PO SCH (08:30)
[2022-03-19] MEDS: ASPIRIN 81 MG PO SCH (08:30)
[2022-03-19 09:58] LABS: African American GFR (CKD) 19.3 (60.0-200.0); Albumin/Globulin Ratio 1.5 (1.60-3.17); BUN/Creat Ratio 5.04 Ratio (12.00-20.00); Blood Urea Nitrogen 18.3 mg/dL (9.0-27.0); Carbon Dioxide 30.8 mmol/L (20.0-27.5); Non-African American GFR(CKD) 16.7 (60.0-200.0); Potassium 3.5 mmol/L (3.5-5.5); Total Bilirubin 0.2 mg/dL (0.30-1.20); Total Protein 4.9 g/dL (6.2-8.2)
--- NOTE | 2022-03-19 10:24 | P.PN ---
Subjective Patient is seen for follow-up for acute kidney injury mostly urine retention and currently with indwelling Hernandez catheter. No complaints today Serum creatinine was down to 3.6 from 7 on initial admission Objective - Vital Signs Vital signs: Vital Signs Temp 98.2 F 03/19/22 07:58 Pulse 65 03/19/22 08:27 Resp 18 03/19/22 07:58 BP 132/69 03/19/22 07:58 Pulse Ox 98 03/19/22 07:58 FiO2 Intake & Output 03/18/22 03/19/22 03/19/22 18:59 06:59 18:59 Intake Total 236 358 Output Total 700 1200 Balance -464 -1200 358 Intake: Oral 236 358 Output: Urine 700 1200 Other: Voiding Method Indwelling Catheter Indwelling Catheter Indwelling Catheter - Exam Patient is currently in the restroom He is awake alert oriented 3 No edema noted in lower extremities [employer]IAN exam grossly intact - Labs CBC & Chem 7: 03/18/22 06:06 03/19/22 06:03 Labs: Abnormal Lab Results - Last 24 Hours (Table) 03/18/22 03/18/22 03/18/22 Range/Units 06:06 06:06 12:11 RBC 2.42 L (4.40-5.60) X 10*6/uL Hgb 7.5 L (13.0-17.0) g/dL Hct 23.3 L (39.6-50.0) % Plt Count 130 L (140-440) X 10*3/uL Carbon Dioxide (20.0-27.5) mmol/L Creatinine 4.3 H (0.6-1.5) mg/dL Est GFR (CKD-EPI)AfAm 15.7 L (60.0-200.0) Est GFR (CKD-EPI)NonAf 13.6 L (60.0-200.0) BUN/Creatinine Ratio 5.40 L (12.00-20.00) Ratio Glucose 148 H (70-110) mg/dL POC Glucose (mg/dL) 196 H (70-110) mg/dL Calcium 7.2 L (8.7-10.3) mg/dL Total Bilirubin 0.20 L (0.30-1.20) mg/dL AST 61 H (14-35) U/L Total Protein 5.0 L (6.2-8.2) g/dL Albumin 3.0 L (3.8-4.9) g/dL Albumin/Globulin Ratio 1.50 L (1.60-3.17) g/dL 03/18/22 03/18/22 03/19/22 Range/Units 17:29 21:20 06:03 RBC (4.40-5.60) X 10*6/uL Hgb (13.0-17.0) g/dL Hct (39.6-50.0) % Plt Count (140-440) X 10*3/uL Carbon Dioxide 30.8 H (20.0-27.5) mmol/L Creatinine 3.6 H (0.6-1.5) mg/dL Est GFR (CKD-EPI)AfAm 19.3 L (60.0-200.0) Est GFR (CKD-EPI)NonAf 16.7 L (60.0-200.0) BUN/Creatinine Ratio 5.04 L (12.00-20.00) Ratio Glucose 163 H (70-110) mg/dL POC Glucose (mg/dL) 159 H 181 H (70-110) mg/dL Calcium 7.0 L (8.7-10.3) mg/dL Total Bilirubin 0.20 L (0.30-1.20) mg/dL AST 47 H (14-35) U/L Total Protein 4.9 L (6.2-8.2) g/dL Albumin 3.0 L (3.8-4.9) g/dL Albumin/Globulin Ratio 1.50 L (1.60-3.17) g/dL 03/19/22 Range/Units 07:29 RBC (4.40-5.60) X 10*6/uL Hgb (13.0-17.0) g/dL Hct (39.6-50.0) % Plt Count (140-440) X 10*3/uL Carbon Dioxide (20.0-27.5) mmol/L Creatinine (0.6-1.5) mg/dL Est GFR (CKD-EPI)AfAm (60.0-200.0) Est GFR (CKD-EPI)NonAf (60.0-200.0) BUN/Creatinine Ratio (12.00-20.00) Ratio Glucose (70-110) mg/dL POC Glucose (mg/dL) 175 H (70-110) mg/dL Calcium (8.7-10.3) mg/dL Total Bilirubin (0.30-1.20) mg/dL AST (14-35) U/L Total Protein (6.2-8.2) g/dL Albumin (3.8-4.9) g/dL Albumin/Globulin Ratio (1.60-3.17) g/dL Assessment and Plan Assessment: 1. Acute kidney injury mostly obstructive uropathy. Currently improving. Patient has an indwelling Hernandez catheter and about 1200 mL of urine as documented on initial catheter placement. UA shows 1+ protein and moderate blood, possibly traumatic. CT of the abdomen did not show significant hydronephrosis. 2. Nonobstructing left renal calculus about 1 cm 3. Urine retention currently with indwelling Hernandez catheter 4. Metabolic acidosis associated with acute kidney injury 5. Hyperkalemia associated with urine retention and acute kidney injury and metabolic acidosis 6. Anemia rule out iron deficiency Plan: DC sodium bicarb drip Continue with Flomax Continue with Hernandez catheter Patient will need to follow-up with urology post discharge. Patient can be discharged from nephrology standpoint Follow-up with nephrology as well in about 1-2 weeks'
[2022-03-19 12:14] LABS: Glucose,Whole Blood 210 mg/dL (70-110)
[2022-03-19 15:43] VITALS: BP 117/65; PULSE 66; RESP 17; TEMP 98.5
--- NOTE | 2022-03-22 15:03 | P.DS ---
Providers Date of admission: 03/16/22 22:03 Expected date of discharge: 03/19/22 Attending physician: Love Nugent MD Consults: 03/16/22 22:03 Consult Physician Urgent Consulting Provider: Lisha Gonzalez Consult Reason/Comments: devin Do you want consulting provider notified?: Yes Primary care physician: Zohra Llanes Hospital Course: Final diagnosis -Acute renal failure secondary to obstructive uropathy., Continue with the Pearson catheter and will have outpatient urology follow-up -Metabolic acidosis secondary to uremia and hypochloremia -non-obstructing left renal calculi -Hyperkalemia secondary to urinary retention and acute renal failure -Mild nonspecific elevation of AST and ALT -DVT prophylaxis Discharge disposition Patient is being discharged in a stable condition with guarded prognosis to home. Patient will follow-up with Dr. العلي in the outpatient setting upon discharge. Patient is to continue with indwelling Pearson catheter and will follow-up with nephrology and urology in the outpatient setting. Patient is to continue on Flomax and a prescription was provided for repeat labs in the outpatient setting.. Total time taken is greater than 35 minutes. Hospital course This is a 66-year-old male who was recently admitted with abnormal labs found to have highly elevated creatinine around 5.49 which is coming down with IV hydration and also with some retention and did have an indwelling Pearson catheter placed and is improving recommended urology follow-up along with nephrology and continuing Flomax. Recommend repeat labs which has been provided a prescription in the next 2-3 days. Patient reports feeling better and would like to go home. Patient has been cleared by nephrology for outpatient follow-up. Currently no reports of chest pain, shortness of breath, or palpitations. Patient is afebrile. No reports of nausea or vomiting and patient is tolerating diet. Patient will be discharged home today. Physical exam: Gen: This is a 66-year-old male awake, alert and oriented 3, well-developed, well-nourished. HEENT: Head is atraumatic, normocephalic. Pupils equal, round. Sclerae is anicteric. NECK: Supple. No JVD. No lymphadenopathy. No thyromegaly. LUNGS: Clear to auscultation. No wheezes or rhonchi. No intercostal retractions. HEART: Regular rate and rhythm. No murmur. ABDOMEN: Soft. Bowel sounds are present. No masses. No tenderness. EXTREMITIES: No pedal edema. No calf tenderness. NEUROLOGICAL: Patient is awake, alert and oriented x3. Cranial nerves 2 through 12 are grossly intact. Please refer to medication reconciliation sheet for a list of medications. The impression and plan of care has been dictated by Lorena Medley, Nurse Practitioner as directed. Dr. Leigh Ann MD I have performed a history and examination and MDM of this patient, discussed the same with the dictator, and agree with the dictator's assessment and plan as written ,documented as a scribe. Based on total visit time, I have performed more than 50% of the visit. Patient Condition at Discharge: Stable Plan - Discharge Summary Discharge Rx Participant: No New Discharge Prescriptions: New Tamsulosin [Flomax] 0.4 mg PO PC-SUPPER 30 Days #30 cap Continue metFORMIN HCL [Glucophage] 500 mg PO TID Omeprazole 20 mg PO BID PRN PRN Reason: GERDS Metoprolol Tartrate [Lopressor] 50 mg PO BID Dapagliflozin Propanediol [Farxiga] 10 mg PO DAILY Aspirin 81 mg PO DAILY #30 chew Nitroglycerin Sl Tabs [Nitrostat] 0.4 mg SUBLINGUAL Q5M PRN #25 tab PRN Reason: Chest Pain Rosuvastatin Calcium 40 mg PO HS Discharge Medication List Metoprolol Tartrate [Lopressor] 50 mg PO BID 12/10/15 [History] Omeprazole 20 mg PO BID PRN 12/10/15 [History] metFORMIN HCL [Glucophage] 500 mg PO TID 12/10/15 [History] Dapagliflozin Propanediol [Farxiga] 10 mg PO DAILY 12/09/18 [History] Aspirin 81 mg PO DAILY #30 chew 12/11/18 [Rx] Nitroglycerin Sl Tabs [Nitrostat] 0.4 mg SUBLINGUAL Q5M PRN #25 tab 12/11/18 [Rx] Rosuvastatin Calcium 40 mg PO HS 02/16/20 [History] Tamsulosin [Flomax] 0.4 mg PO PC-SUPPER 30 Days #30 cap 03/19/22 [Rx] Follow up Appointment(s)/Referral(s): Shraddha العلي MD [Primary Care Provider] - 1-2 days Jr Campbell MD [STAFF PHYSICIAN] - 1 Week Lisha Gonzalez MD [STAFF PHYSICIAN] - 1 Week Ambulatory/Diagnostic Orders: Basic Metabolic Panel [LAB.AMB] Time Frame: 3 Days, Location: None Selected Activity/Diet/Wound Care/Special Instructions: activity limited until follow up follow up urology on discharge in 1-2 weeks continue flomax and indwelling pearson until follow up follow up with nephrology in 1-2 weeks follow up pcp on discharge repeat labs in 2-3 days Discharge Disposition: HOME SELF-CARE
== END 2022-03-19 16:41 | disposition home or self-care (01) | DRG 683 ==
LOC: EC 16:06 → 5NMEDONC 22:03 → 6NMEDSUR 03-17 05:38
PROVIDERS: ADMIT Internal Medicine; ATTEND Internal Medicine
DX: N17.9 Acute kidney failure, unspecified (principal); E87.2 Acidosis; E87.5 Hyperkalemia; E11.9 Type 2 diabetes mellitus without complications; E78.5 Hyperlipidemia, unspecified; R33.9 Retention of urine, unspecified; N20.0 Calculus of kidney; E87.8 Other disorders of electrolyte and fluid balance, not elsewhere classified; N13.9 Obstructive and reflux uropathy, unspecified; I25.2 Old myocardial infarction; Z79.82 Long term (current) use of aspirin; Z79.84 Long term (current) use of oral hypoglycemic drugs; Z79.899 Other long term (current) drug therapy; Z87.442 Personal history of urinary calculi; Z87.891 Personal history of nicotine dependence; Z88.5 Allergy status to narcotic agent; Z91.040 Latex allergy status; Z95.5 Presence of coronary angioplasty implant and graft
CPT/HCPCS: 36415; 74176; 80048; 80053; 80143; 80320; 81001; 82140; 82248; 83690; 85025; 85027; 85610; 85730; 96360; 96361; 99285

== ENCOUNTER → 2022-07-12 | Outpatient (CLI) | payer MEDICARE ==
[2022-07-12 15:43] LABS: Appearance,Urine Clear (Clear); Bilirubin,Urine Negative (Negative); Blood,Urine Negative (Negative); Color,Urine Light Yellow; Glucose,Urine (UA) 4+ (Negative); Ketones,Urine Negative (Negative); Leukocyte Esterase,Urine Negative (Negative); Nitrite,Urine Negative (Negative); PH, Urine 6.5 (5.0-8.0); Protein,Urine Negative (Negative); Specific Gravity,Urine 1.014 (1.001-1.035); Urobilinogen,Urine <2.0 mg/dL (<2.0)
[2022-07-12 22:27] LABS: Basophils # (A) 0.06 X 10*3/uL (0.00-0.10); Basophils % (A) 0.8 %; Eosinophils % (A) 2.7 %; HCT 32.5 % (39.6-50.0); HGB 10.6 g/dL (13.0-17.0); Immature Grans, Automated 0.1 %; Lymphocytes # (A) 1.27 X 10*3/uL (0.90-5.00); Lymphocytes % (A) 17.3 %; MCH 28.7 pg (27.0-32.0); MCHC 32.6 g/dL (32.0-37.0); MCV 88.1 fL (80.0-97.0); Mean Platelet Volume 12.5 fL (9.5-12.2); Monocytes # (A) 0.55 X 10*3/uL (0.20-1.00); Monocytes % (A) 7.5 %; NRBC Per 100 WBC 0 /100 WBCS (0.0-0.0); Neutrophils # (A) 5.24 X 10*3/uL (1.80-7.70); Neutrophils % (A) 71.6 %; Platelet Count 162 X 10*3/uL (140-440); RBC 3.69 X 10*6/uL (4.40-5.60); RDW 12.9 % (11.5-14.5); WBC 7.33 X 10*3/uL (4.50-10.00)
[2022-07-12 22:47] LABS: African American GFR (CKD) 31.1 (60.0-200.0); Albumin 4.3 g/dL (3.8-4.9); Albumin/Globulin Ratio 1.88 (1.60-3.17); Anion Gap 11.9 mmol/L (10.00-18.00); BUN/Creat Ratio 11.31 Ratio (12.00-20.00); Blood Urea Nitrogen 27.7 mg/dL (9.0-27.0); Calcium 9.8 mg/dL (8.7-10.3); Carbon Dioxide 23.6 mmol/L (20.0-27.5); Globulin 2.3 g/dL (1.6-3.3); Magnesium 1.8 mg/dL (1.5-2.4); Non-African American GFR(CKD) 26.8 (60.0-200.0); Phosphorus 3.8 mg/dL (2.4-5.1); Potassium 4.8 mmol/L (3.5-5.5); Total Bilirubin 0.3 mg/dL (0.30-1.20); Total Protein 6.6 g/dL (6.2-8.2)
[2022-07-12 23:38] LABS: % Iron Saturation 13.94 (15.00-50.00)
[2022-07-13 01:25] LABS: Urine Creatinine 36.8 mg/dL (39.0-259.0)
== END | disposition home or self-care (01) ==
LOC: LABWHC1 13:51
PROVIDERS: ATTEND Nurse Practitioner Family
DX: D64.9 Anemia, unspecified (principal); N17.9 Acute kidney failure, unspecified; N25.81 Secondary hyperparathyroidism of renal origin; N39.0 Urinary tract infection, site not specified; R80.9 Proteinuria, unspecified
CPT/HCPCS: 36415; 80053; 81003; 82043; 82570; 83540; 83550; 83735; 83970; 84100; 85025

== ENCOUNTER → 2022-10-10 | Outpatient (CLI) | payer MEDICARE ==
[2022-10-10 14:27] LABS: HCT 33.7 % (39.6-50.0); HGB 10.8 g/dL (13.0-17.0); MCH 26.9 pg (27.0-32.0); Mean Platelet Volume 11.8 fL (9.5-12.2); NRBC Per 100 WBC 0 /100 WBCS (0.0-0.0); Platelet Count 184 X 10*3/uL (140-440); RBC 4.01 X 10*6/uL (4.40-5.60); RDW 14.5 % (11.5-14.5); WBC 7.39 X 10*3/uL (4.50-10.00)
[2022-10-10 15:55] LABS: % Iron Saturation 13.72 (15.00-50.00); ALT 19 U/L (10-49); AST 24 U/L (14-35); African American GFR (CKD) 26.2 (60.0-200.0); Albumin 4.4 g/dL (3.8-4.9); Albumin/Globulin Ratio 1.76 (1.60-3.17); Alkaline Phosphatase 96 U/L (41-126); BUN/Creat Ratio 11.04 Ratio (12.00-20.00); Blood Urea Nitrogen 30.9 mg/dL (9.0-27.0); Calcium 9.7 mg/dL (8.7-10.3); Carbon Dioxide 20.1 mmol/L (20.0-27.5); Chloride 103 mmol/L (96-109); Globulin 2.5 g/dL (1.6-3.3); Glucose 233 mg/dL (70-110); Iron 51 ug/dL (65-175); Magnesium 2.5 mg/dL (1.5-2.4); Non-African American GFR(CKD) 22.6 (60.0-200.0); Phosphorus 5.2 mg/dL (2.4-5.1); Potassium 4.9 mmol/L (3.5-5.5); Sodium 139 mmol/L (135-145); Total Bilirubin <0.15 mg/dL (0.30-1.20); Total Iron Binding Capacity 372 ug/dL (228-460); Total Protein 6.9 g/dL (6.2-8.2)
[2022-10-10 21:58] LABS: Appearance,Urine Clear (Clear); Bilirubin,Urine Negative (Negative); Blood,Urine Negative (Negative); Color,Urine Yellow (Yellow); Ketones,Urine Negative (Negative); Nitrite,Urine Negative (Negative); Specific Gravity,Urine 1.021 (1.001-1.030); Urobilinogen,Urine 0.2 (0.2,1.0)
[2022-10-11] LABS: Urine Creatinine 65.4 mg/dL (39.0-259.0)
== END | disposition home or self-care (01) ==
LOC: LABWHC1 10:20
PROVIDERS: ATTEND Nurse Practitioner Family
DX: N17.9 Acute kidney failure, unspecified (principal)
CPT/HCPCS: 36415; 80053; 81001; 82043; 82570; 82728; 83540; 83550; 83735; 83970; 84100; 85027

== ENCOUNTER → 2022-11-06 | Outpatient (CLI) | payer MEDICARE ==
[2022-11-06 15:48] LABS: HCT 36.7 % (39.6-50.0); HGB 11.2 g/dL (13.0-17.0); MCH 26.3 pg (27.0-32.0); MCHC 30.5 g/dL (32.0-37.0); MCV 86.2 fL (80.0-97.0); Mean Platelet Volume 12.1 fL (9.5-12.2); NRBC Per 100 WBC 0 /100 WBCS (0.0-0.0); Platelet Count 177 X 10*3/uL (140-440); RBC 4.26 X 10*6/uL (4.40-5.60); RDW 14.7 % (11.5-14.5); WBC 5.94 X 10*3/uL (4.50-10.00)
[2022-11-06 16:20] LABS: % Iron Saturation 18.06 (15.00-50.00); African American GFR (CKD) 26.2 (60.0-200.0); Albumin 4.6 g/dL (3.8-4.9); Albumin/Globulin Ratio 1.84 (1.60-3.17); Anion Gap 12.5 mmol/L (10.00-18.00); BUN/Creat Ratio 12.96 Ratio (12.00-20.00); Blood Urea Nitrogen 36.3 mg/dL (9.0-27.0); Calcium 9.6 mg/dL (8.7-10.3); Carbon Dioxide 22.5 mmol/L (20.0-27.5); Globulin 2.5 g/dL (1.6-3.3); Magnesium 2.3 mg/dL (1.5-2.4); Non-African American GFR(CKD) 22.6 (60.0-200.0); Potassium 5.3 mmol/L (3.5-5.5); Total Bilirubin 0.3 mg/dL (0.30-1.20); Total Protein 7.1 g/dL (6.2-8.2)
[2022-11-06 20:40] LABS: Appearance,Urine Clear (Clear); Bilirubin,Urine Negative (Negative); Blood,Urine Negative (Negative); Color,Urine Yellow (Yellow); Ketones,Urine Negative (Negative); Nitrite,Urine Negative (Negative); Specific Gravity,Urine 1.019 (1.001-1.030); Urobilinogen,Urine 0.2 (0.2,1.0)
[2022-11-07 00:14] LABS: Urine Creatinine 68.5 mg/dL (39.0-259.0)
== END | disposition home or self-care (01) ==
LOC: LABWHC1 11:33
PROVIDERS: ATTEND Nurse Practitioner Family
DX: N17.9 Acute kidney failure, unspecified (principal)
CPT/HCPCS: 36415; 80053; 81001; 82043; 82570; 82728; 83540; 83550; 83735; 83970; 84100; 85027

== ENCOUNTER → 2023-03-12 | Outpatient (CLI) | payer MEDICARE ==
--- NOTE | 2023-03-12 11:12 | US ---
EXAMINATION TYPE: US kidneys/renal and bladder DATE OF EXAM: 03/12/2023 COMPARISON: 03/16/2022 CLINICAL INDICATION: Male, 67 years old with history of N18.4 CKD STAGE 4; CKD stage 4 EXAM MEASUREMENTS: Right Kidney: 10.6 x 5.3 x 4.9 cm Left Kidney: 10.7 x 5.5 x 4.4 cm Right Kidney: No hydronephrosis or masses seen Left Kidney: No hydronephrosis or masses seen Bladder: Anechoic Bilateral Jets seen: No There is no evidence for hydronephrosis at this point in time. No nephrolithiasis is seen. No kyle s are identified. The urinary bladder is anechoic. Bilateral ureteral jets are seen. IMPRESSION: Cortical medullary differentiation is maintained. No evidence for obstructive uropathy.
== END | disposition home or self-care (01) ==
LOC: RADUSWWP 10:18
PROVIDERS: ATTEND Internal Medicine Nephrology
DX: N18.4 Chronic kidney disease, stage 4 (severe) (principal)
CPT/HCPCS: 76770

== ENCOUNTER → 2023-03-14 | Outpatient (CLI) | payer MEDICARE ==
[2023-03-14 13:39] LABS: Appearance,Urine Clear (Clear); Bilirubin,Urine Negative (Negative); Blood,Urine Trace (Negative); Color,Urine Colorless; Glucose,Urine (UA) 4+ (Negative); Ketones,Urine Negative (Negative); Leukocyte Esterase,Urine Negative (Negative); Nitrite,Urine Negative (Negative); Protein,Urine 1+ (Negative); RBC,Urine <1 /hpf (0-5); Specific Gravity,Urine 1.017 (1.001-1.035); Urobilinogen,Urine <2.0 mg/dL (<2.0); WBC,Urine <1 /hpf (0-5)
[2023-03-14 14:40] LABS: Basophils # (A) 0.1 k/uL (0-0.2); Basophils % (A) 1 %; Eosinophils # (A) 0.2 k/uL (0-0.7); Eosinophils % (A) 3 %; HCT 39.2 % (39.0-53.0); HGB 12.7 gm/dL (13.0-17.5); Lymphocytes # (A) 1.4 k/uL (1.0-4.8); Lymphocytes % (A) 19 %; MCHC 32.4 g/dL (31.0-37.0); MCV 89.5 fL (80.0-100.0); Mean Platelet Volume 9.3; Monocytes # (A) 0.5 k/uL (0-1.0); Monocytes % (A) 6 %; Neutrophils # (A) 5.3 k/uL (1.3-7.7); Neutrophils % (A) 71 %; Platelet Count 180 k/uL (150-450); RBC 4.38 m/uL (4.30-5.90); RDW 14.7 % (11.5-15.5); WBC 7.5 k/uL (3.8-10.6)
[2023-03-14 21:11] LABS: % Iron Saturation 13.88 (15.00-50.00); Albumin 4.5 d/dL (3.8-4.9); BUN/Creat Ratio 12.44 Ratio (12.00-20.00); Blood Urea Nitrogen 33.6 mg/dL (9.0-27.0); Calcium 9.5 mg/dL (8.7-10.3); Carbon Dioxide 19.4 mmol/L (21.6-31.8); Chloride 107 mmol/L (96-109); Glucose 165 mg/dL (70-110); Iron 49 UG/DL (65-175); Magnesium 2.3 mg/dL (1.5-2.4); Phosphorus 3.7 mg/dL (2.4-5.1); Potassium 5.1 mmol/L (3.5-5.5); Sodium 138 mmol/L (135-145); Total Iron Binding Capacity 353 UG/DL (228-460); Uric Acid 5.7 mg/dL (3.7-8.7)
[2023-03-14 22:07] LABS: Urine Creatinine 85.8 mg/dL (39.0-259.0)
== END | disposition home or self-care (01) ==
LOC: LABWHC1 11:55
PROVIDERS: ATTEND Internal Medicine Nephrology
DX: E55.9 Vitamin D deficiency, unspecified (principal); N17.9 Acute kidney failure, unspecified; N25.81 Secondary hyperparathyroidism of renal origin; M10.9 Gout, unspecified; N39.0 Urinary tract infection, site not specified; D64.9 Anemia, unspecified
CPT/HCPCS: 36415; 80048; 81001; 82040; 82043; 82306; 82570; 82728; 83540; 83550; 83735; 83970; 84100; 84550; 85025

== ENCOUNTER 2023-08-26 20:30 | Inpatient (IN) | payer MEDICARE ==
--- NOTE | 2023-08-26 21:26 | XR ---
KUB. HISTORY: Decreased urination and low back pain and lethargy COMPARISON: 12/10/2015 TECHNIQUE: 2 upright views of the abdomen were obtained. FINDINGS: The lung bases are clear. There is no free intraperitoneal air beneath the diaphragm. The bowel gas pattern is nonspecific and there is no evidence of obstruction. No suspicious abdominal or pelvic calcifications are seen. The osseous structures are intact. IMPRESSION: Nonspecific abdomen without evidence of free air or obstruction.
--- NOTE | 2023-08-26 21:29 | ED ---
General Adult HPI - General Source: patient Mode of arrival: ambulatory Limitations: no limitations <Alonzo Elkins - Last Filed: 08/26/23 21:29> <Juan Pearson - Last Filed: 09/03/23 01:57> - General Chief complaint: Weakness Stated complaint: Back Pain Time Seen by Provider: 08/26/23 21:22 - History of Present Illness Initial comments: 68-year-old male with a past medical history significant for chronic kidney disease on dialysis presenting to the ED with a chief complaint of fatigue. Patient states for the past week has had some generalized fatigue. Today onset of lower back pain as well. Patient still makes urine and reports lately has been urinating less. Denies chest pain or shortness of breath. (Alonzo Elkins) - Related Data Home Medications Medication Instructions Recorded Confirmed Metoprolol Tartrate [Lopressor] 50 mg PO BID 12/10/15 08/27/23 Omeprazole 20 mg PO BID 12/10/15 08/27/23 Dapagliflozin Propanediol [Farxiga] 10 mg PO DAILY 12/09/18 08/27/23 Rosuvastatin Calcium 40 mg PO HS 02/16/20 08/27/23 Ergocalciferol (Vitamin D2) 1,250 mcg PO Q7D 08/27/23 08/27/23 [Drisdol (50,000 Iu)] Ferrous Sulfate [Feosol] 325 mg PO DAILY 08/27/23 08/27/23 Insulin Glargine,Hum.rec.anlog 60 units SQ HS 08/27/23 08/27/23 [Lantus Solostar Pen] Losartan [Cozaar] 25 mg PO DAILY 08/27/23 08/27/23 Magnesium Oxide [Mag-Ox] 400 mg PO BID 08/27/23 08/27/23 Sodium Bicarbonate Tab 650 mg PO DAILY 08/27/23 08/27/23 amLODIPine [Norvasc] 10 mg PO DAILY 08/27/23 08/27/23 Previous Rx's Medication Instructions Recorded Tamsulosin [Flomax] 0.4 mg PO PC-SUPPER 30 Days #30 cap 03/19/22 Allergies Allergy/AdvReac Type Severity Reaction Status Date / Time Latex, Natural Rubber Allergy Rash/Hives Verified 08/26/23 20:46 codeine AdvReac Rapid Verified 08/26/23 20:46 Heart Rate meperidine HCl [From Demerol] AdvReac Rapid Verified 08/26/23 20:46 Heart Rate Review of Systems ROS Other: All systems not noted in ROS Statement are negative. <Alonzo Elkins - Last Filed: 08/26/23 21:29> ROS Other: All systems not noted in ROS Statement are negative. <Juan Pearson - Last Filed: 09/03/23 01:57> ROS Statement: Those systems with pertinent positive or pertinent negative responses have been documented in the HPI. Past Medical History Past Medical History: Diabetes Mellitus, Hyperlipidemia, Myocardial Infarction ([place]) Additional Past Medical History / Comment(s): kidney failure - stage 4 Last Myocardial Infarction Date:: 1998 History of Any Multi-Drug Resistant Organisms: None Reported Past Surgical History: Appendectomy, Heart Catheterization With Stent Additional Past Surgical History / Comment(s): Heart cath with stent 20 years ago, stent 12/09/2018 Past Anesthesia/Blood Transfusion Reactions: No Reported Reaction Date of Last Stent Placement:: 1998 Past Psychological History: No Psychological Hx Reported Smoking Status: Former smoker Past Alcohol Use History: Daily, Heavy Past Drug Use History: None Reported <Julio CesarmyaAlonzo musa - Last Filed: 08/26/23 21:29> General Exam Limitations: no limitations <Alonzo Elkins - Last Filed: 08/26/23 21:29> Limitations: no limitations General appearance: alert, in no apparent distress Head exam: Present: atraumatic, normocephalic Eye exam: Present: normal appearance. Absent: scleral icterus, conjunctival injection ENT exam: Present: normal oropharynx Neck exam: Present: normal inspection, full ROM Respiratory exam: Present: normal lung sounds bilaterally. Absent: respiratory distress, wheezes, rales, rhonchi, stridor, accessory muscle use Cardiovascular Exam: Present: regular rate, normal rhythm, normal heart sounds. Absent: systolic murmur, diastolic murmur, rubs, gallop GI/Abdominal exam: Present: soft. Absent: distended, tenderness, guarding, rebound, rigid, mass Extremities exam: Present: normal inspection, normal capillary refill. Absent: pedal edema, calf tenderness Back exam: Present: normal inspection. Absent: CVA tenderness (R), CVA tenderness (L) Neurological exam: Present: alert Skin exam: Present: warm, dry, intact, normal color. Absent: rash <Juan Pearson - Last Filed: 09/03/23 01:57> - General Exam Comments Initial Comments: Visual Physical Exam Vital signs reviewed General: Well-appearing, nontoxic, no acute distress. Head: Normocephalic, atraumatic Eyes: PERRLA, EOMI ENT: Airway patent Chest: Nonlabored breathing Skin: No visual rash, normal skin tone Neuro: Alert and oriented 3 Musculoskeletal: No gross abnormalities (Alonzo Elkins) Course Vital Signs 08/26/23 08/27/23 08/27/23 20:43 00:00 01:00 Temperature 98.3 F Pulse Rate 65 60 65 Respiratory 18 18 18 Rate Blood Pressure 135/65 141/80 135/71 O2 Sat by Pulse 98 96 96 Oximetry 08/27/23 02:00 Temperature Pulse Rate 67 Respiratory 16 Rate Blood Pressure 132/74 O2 Sat by Pulse 95 Oximetry Medical Decision Making <Alonzo Elkins - Last Filed: 08/26/23 21:29> - Lab Data Result diagrams: 09/02/23 07:21 09/02/23 07:21 <Juan Pearson - Last Filed: 09/03/23 01:57> - Medical Decision Making Quicknote portion performed. Signed Alonzo Elkins PA-C (Alonzo Elkins) Patient is a 68-year-old man who is found to have acute kidney failure. Patient will be admitted to have nephrology consultation. The patient does state that he does drink alcohol somewhat regularly in order to facilitate sleeping. The patient therefore will have Librium and Ativan as CIWA coverage. The patient had abdominal x-ray that I interpreted as not showing presence of free air or obstruction. The patient had ultrasound of the kidneys and bladder that I interpreted as not showing presence of stone or hydronephrosis Was pt. sent in by a medical professional or institution ([facility], [facility], urgent care, hospital, or halfway...) When possible be specific @ -[No] Did you speak to anyone other than the patient for history (EMS, parent, family, police, friend...)? What history was obtained from this source @ -[No] Did you review nursing and triage notes (agree or disagree)? Why? @ -[I reviewed and agree with nursing and triage notes] Were old charts reviewed (outside hosp., previous admission, EMS record, old EKG, old radiological studies, urgent care reports/EKG's, halfway records)? Report findings @ -[No old charts were reviewed] Differential Diagnosis (chest pain, altered mental status, abdominal pain women, abdominal pain men, vaginal bleeding, weakness, fever, dyspnea, syncope, headache, dizziness, GI bleed, back pain, seizure, CVA, palpatations, mental health, musculoskeletal)? @ -[Differential Weakness: Hypoglycemia, shock, sepsis, hyponatremia, anemia, infection, HI, ETOH, adverse medicine reaction, overdose, stroke, this is not meant to be an all-inclusive list. EKG interpreted by me (3pts min.). @ -[I interpreted as above] X-rays interpreted by me (1pt min.). @ -[I interpreted as above CT interpreted by me (1pt min.). @ -[None done] U/S interpreted by me (1pt. min.). @ -[I interpreted as above What testing was considered but not performed or refused? (CT, X-rays, U/S, labs)? Why? @ -[None] What meds were considered but not given or refused? Why? @ -[None] Did you discuss the management of the patient with other professionals (professionals i.e. , PA, WELLNESS TRAINER, lab, RT, psych nurse, social sciences department chair, captain waiter/waitress, teacher, legal compliance officer, pillowcase maker)? Give summary @ -[Case discussed with admitting physician and treatment recommendations are incorporated Was smoking cessation discussed for >3mins.? @ -[No] Was critical care preformed (if so, how long)? @ -[No] Were there social determinants of health that impacted care today? How? (Homelessness, low income, unemployed, alcoholism, drug addiction, transportation, low edu. Level, literacy, decrease access to med. care, longterm, rehab)? @ -[No] Was there de-escalation of care discussed even if they declined (Discuss DNR or withdrawal of care, Hospice)? DNR status @ -[No] What co-morbidities impacted this encounter? (DM, HTN, Smoking, COPD, CAD, Cancer, CVA, ARF, Chemo, Hep., AIDS, mental health diagnosis, sleep apnea, morbid obesity)? @ -[None] Was patient admitted / discharged? Hospital course, mention meds given and route, prescriptions, significant lab abnormalities, going to OR and other pertinent info. @ -[Patient is a 68-year-old man who is found to have markedly elevated creatinine consistent with acute renal failure. The patient's previous creatinine was just above 2. The patient will be admitted for further evaluation and treatment Undiagnosed new problem with uncertain prognosis? @ -[No] Drug Therapy requiring intensive monitoring for toxicity (Heparin, Nitro, Insulin, Cardizem)? @ -[No] Were any procedures done? @ -[No] Diagnosis/symptom? @ -[Acute renal failure Acute metabolic acidosis Acute transaminase elevation, suspect due to alcohol consumption Acute, or Chronic, or Acute on Chronic? @ -[Acute Uncomplicated (without systemic symptoms) or Complicated (systemic symptoms)? @ -[Uncomplicated Side effects of treatment? @ -[No] Exacerbation, Progression, or Severe Exacerbation? @ -[No] Poses a threat to life or bodily function? How? (Chest pain, [place], HI, pneumonia, PE, COPD, DKA, ARF, appy, cholecystitis, CVA, Diverticulitis, Homicidal, Suicidal, threat to staff... and all critical care pts) @ -[Yes acute renal failure pose a direct threat to life (Juan Pearson) - Lab Data Lab Results 08/26/23 08/26/23 08/26/23 Range/Units 21:12 21:12 21:12 WBC 4.8 (3.8-10.6) k/uL RBC 4.01 L (4.30-5.90) m/uL Hgb 12.3 L (13.0-17.5) gm/dL Hct 35.1 L (39.0-53.0) % MCV 87.7 (80.0-100.0) fL MCH 30.7 (25.0-35.0) pg MCHC 35.1 (31.0-37.0) g/dL RDW 14.8 (11.5-15.5) % Plt Count 111 L (150-450) k/uL MPV 8.8 Neutrophils % 79 % Lymphocytes % 13 % Monocytes % 6 % Eosinophils % 1 % Basophils % 1 % Neutrophils # 3.8 (1.3-7.7) k/uL Lymphocytes # 0.6 L (1.0-4.8) k/uL Monocytes # 0.3 (0-1.0) k/uL Eosinophils # 0.1 (0-0.7) k/uL Basophils # 0.0 (0-0.2) k/uL PT 10.6 (10.0-12.5) sec INR 1.0 (<1.2) APTT 23.0 (22.0-30.0) sec Sodium 132 L (137-145) mmol/L Potassium 4.4 (3.5-5.1) mmol/L Chloride 103 (98-107) mmol/L Carbon Dioxide 16 L (22-30) mmol/L Anion Gap 13 mmol/L BUN 45 H (9-20) mg/dL Creatinine 8.04 H* (0.66-1.25) mg/dL Est GFR (CKD-EPI)AfAm 7 (>60 ml/min/1.73 sqM) Est GFR (CKD-EPI)NonAf 6 (>60 ml/min/1.73 sqM) Glucose 144 H (74-99) mg/dL Osmolality (275-295) mOsm/kg Plasma Lactic Acid Miguel Angel (0.7-2.0) mmol/L Calcium 7.7 L (8.4-10.2) mg/dL Magnesium 2.7 H (1.6-2.3) mg/dL Total Bilirubin 1.0 (0.2-1.3) mg/dL AST 580 H (17-59) U/L ALT 146 H (4-49) U/L Alkaline Phosphatase 106 (38-126) U/L Troponin I (0.000-0.034) ng/mL NT-Pro-B Natriuret Pep 440 pg/mL Total Protein 6.8 (6.3-8.2) g/dL Albumin 4.1 (3.5-5.0) g/dL Urine Osmolality (400-1100) mOsm/kg Ur Random Creatinine mg/dL Ur Random Sodium (40-220) mmol/L Ur Random Potassium (25.0-125.0) mmol/L Influenza Type A (PCR) (Not Detectd) Influenza Type B (PCR) (Not Detectd) RSV (PCR) (Not Detectd) SARS-CoV-2 (PCR) (Not Detectd) 08/26/23 08/26/23 08/26/23 Range/Units 21:12 21:30 21:32 WBC (3.8-10.6) k/uL RBC (4.30-5.90) m/uL Hgb (13.0-17.5) gm/dL Hct (39.0-53.0) % MCV (80.0-100.0) fL MCH (25.0-35.0) pg MCHC (31.0-37.0) g/dL RDW (11.5-15.5) % Plt Count (150-450) k/uL MPV Neutrophils % % Lymphocytes % % Monocytes % % Eosinophils % % Basophils % % Neutrophils # (1.3-7.7) k/uL Lymphocytes # (1.0-4.8) k/uL Monocytes # (0-1.0) k/uL Eosinophils # (0-0.7) k/uL Basophils # (0-0.2) k/uL PT (10.0-12.5) sec INR (<1.2) APTT (22.0-30.0) sec Sodium (137-145) mmol/L Potassium (3.5-5.1) mmol/L Chloride (98-107) mmol/L Carbon Dioxide (22-30) mmol/L Anion Gap mmol/L BUN (9-20) mg/dL Creatinine (0.66-1.25) mg/dL Est GFR (CKD-EPI)AfAm (>60 ml/min/1.73 sqM) Est GFR (CKD-EPI)NonAf (>60 ml/min/1.73 sqM) Glucose (74-99) mg/dL Osmolality (275-295) mOsm/kg Plasma Lactic Acid Miguel Angel 1.0 (0.7-2.0) mmol/L Calcium (8.4-10.2) mg/dL Magnesium (1.6-2.3) mg/dL Total Bilirubin (0.2-1.3) mg/dL AST (17-59) U/L ALT (4-49) U/L Alkaline Phosphatase (38-126) U/L Troponin I 0.034 (0.000-0.034) ng/mL NT-Pro-B Natriuret Pep pg/mL Total Protein (6.3-8.2) g/dL Albumin (3.5-5.0) g/dL Urine Osmolality (400-1100) mOsm/kg Ur Random Creatinine mg/dL Ur Random Sodium (40-220) mmol/L Ur Random Potassium (25.0-125.0) mmol/L Influenza Type A (PCR) Not Detected (Not Detectd) Influenza Type B (PCR) Not Detected (Not Detectd) RSV (PCR) Not Detected (Not Detectd) SARS-CoV-2 (PCR) Not Detected (Not Detectd) 08/27/23 08/27/23 08/27/23 Range/Units 00:25 00:25 00:25 WBC (3.8-10.6) k/uL RBC (4.30-5.90) m/uL Hgb (13.0-17.5) gm/dL Hct (39.0-53.0) % MCV (80.0-100.0) fL MCH (25.0-35.0) pg MCHC (31.0-37.0) g/dL RDW (11.5-15.5) % Plt Count (150-450) k/uL MPV Neutrophils % % Lymphocytes % % Monocytes % % Eosinophils % % Basophils % % Neutrophils # (1.3-7.7) k/uL Lymphocytes # (1.0-4.8) k/uL Monocytes # (0-1.0) k/uL Eosinophils # (0-0.7) k/uL Basophils # (0-0.2) k/uL PT (10.0-12.5) sec INR (<1.2) APTT (22.0-30.0) sec Sodium (137-145) mmol/L Potassium (3.5-5.1) mmol/L Chloride (98-107) mmol/L Carbon Dioxide (22-30) mmol/L Anion Gap mmol/L BUN (9-20) mg/dL Creatinine (0.66-1.25) mg/dL Est GFR (CKD-EPI)AfAm (>60 ml/min/1.73 sqM) Est GFR (CKD-EPI)NonAf (>60 ml/min/1.73 sqM) Glucose (74-99) mg/dL Osmolality 302 H (275-295) mOsm/kg Plasma Lactic Acid Miguel Angel (0.7-2.0) mmol/L Calcium (8.4-10.2) mg/dL Magnesium (1.6-2.3) mg/dL Total Bilirubin (0.2-1.3) mg/dL AST (17-59) U/L ALT (4-49) U/L Alkaline Phosphatase (38-126) U/L Troponin I (0.000-0.034) ng/mL NT-Pro-B Natriuret Pep pg/mL Total Protein (6.3-8.2) g/dL Albumin (3.5-5.0) g/dL Urine Osmolality 196 L (400-1100) mOsm/kg Ur Random Creatinine 34.8 mg/dL Ur Random Sodium 44 (40-220) mmol/L Ur Random Potassium 17.7 L (25.0-125.0) mmol/L Influenza Type A (PCR) (Not Detectd) Influenza Type B (PCR) (Not Detectd) RSV (PCR) (Not Detectd) SARS-CoV-2 (PCR) (Not Detectd) Disposition <Alonzo Elkins - Last Filed: 08/26/23 21:29> Is patient prescribed a controlled substance at d/c from ED?: No <Juan Pearson - Last Filed: 09/03/23 01:57> Clinical Impression: Acute renal failure, Metabolic acidosis, Elevated transaminase level Disposition: ADMITTED IP TO THIS HOSP Condition: Serious
[2023-08-26 21:55] LABS: Basophils % (A) 1 %; Eosinophils # (A) 0.1 k/uL (0-0.7); Eosinophils % (A) 1 %; HCT 35.1 % (39.0-53.0); HGB 12.3 gm/dL (13.0-17.5); Lymphocytes # (A) 0.6 k/uL (1.0-4.8); Lymphocytes % (A) 13 %; MCH 30.7 pg (25.0-35.0); MCHC 35.1 g/dL (31.0-37.0); MCV 87.7 fL (80.0-100.0); Mean Platelet Volume 8.8; Monocytes # (A) 0.3 k/uL (0-1.0); Monocytes % (A) 6 %; Neutrophils # (A) 3.8 k/uL (1.3-7.7); Neutrophils % (A) 79 %; Platelet Count 111 k/uL (150-450); RBC 4.01 m/uL (4.30-5.90); RDW 14.8 % (11.5-15.5); WBC 4.8 k/uL (3.8-10.6)
[2023-08-26 22:05] LABS: Potassium 4.4 mmol/L (3.5-5.1)
[2023-08-26 22:06] LABS: ALT 146 U/L (4-49); AST 580 U/L (17-59); African American GFR (CKD) 7 (>60 ml/min/1.73 sqM); Albumin 4.1 g/dL (3.5-5.0); Alkaline Phosphatase 106 U/L (38-126); Anion Gap 13 mmol/L; Blood Urea Nitrogen 45 mg/dL (9-20); Calcium 7.7 mg/dL (8.4-10.2); Carbon Dioxide 16 mmol/L (22-30); Chloride 103 mmol/L (98-107); Glucose 144 mg/dL (74-99); Magnesium 2.7 mg/dL (1.6-2.3); Non-African American GFR(CKD) 6 (>60 ml/min/1.73 sqM); Sodium 132 mmol/L (137-145); Total Protein 6.8 g/dL (6.3-8.2)
[2023-08-26 22:15] LABS: NT-Pro-B-Type Natriuretic Pept 440 pg/mL
[2023-08-26 22:24] LABS: Prothrombin Time 10.6 sec (10.0-12.5)
[2023-08-27] MEDS: MORPHINE SULFATE 4 MG/ML SYRINGE IV STA (00:18)
[2023-08-27] MEDS: SODIUM CHLORIDE 0.9% 1,000 ML IV ONE (00:21)
[2023-08-27 00:43] LABS: Creatinine,Urine Random 34.8 mg/dL
[2023-08-27] MEDS ORDERED: NALOXONE 0.4 MG/ML 1 ML VIAL IV PRN (01:09)
[2023-08-27] MEDS ORDERED: MORPHINE SULFATE 4 MG/ML SYRINGE IV PRN (01:09)
[2023-08-27] MEDS: SODIUM CHLORIDE 0.9% 1,000 ML IV SCH (01:14)
--- NOTE | 2023-08-27 02:59 | US ---
EXAM: US Retroperitoneal Complete, Renal CLINICAL HISTORY: ITS.REASON US Reason: acute kidney injury TECHNIQUE: Real-time complete ultrasound of the retroperitoneum with image documentation. COMPARISON: US Retroperitoneal Complete Renal dated 03/12/23 FINDINGS: Right kidney: 11.2 x 6.4 x 6.0 cm. No stones. No hydronephrosis. Left kidney: 12.0 x 5.1 x 5.8 cm. No stones. No hydronephrosis. Bladder: Unremarkable as visualized. Ureteral jets not visualized. IMPRESSION: No hydronephrosis.
[2023-08-27] MEDS ORDERED: LORazepam 2 MG/ML INJ IV PRN ×3 (06:51)
[2023-08-27] MEDS ORDERED: chlordiazePOXIDE 25 MG CAP PO PRN (06:51)
[2023-08-27 08:52] LABS: Potassium,Urine Random 17.7 mmol/L (25.0-125.0)
[2023-08-27] MEDS ORDERED: FAMOTIDINE 20 MG TAB PO SCH (09:00)
[2023-08-27 09:56] LABS: ALT 112 U/L (4-49); AST 375 U/L (17-59); African American GFR (CKD) 7 (>60 ml/min/1.73 sqM); Albumin 3.3 g/dL (3.5-5.0); Albumin/Globulin Ratio 1.3; Alkaline Phosphatase 89 U/L (38-126); Anion Gap 12 mmol/L; Blood Urea Nitrogen 42 mg/dL (9-20); Calcium 6.9 mg/dL (8.4-10.2); Carbon Dioxide 15 mmol/L (22-30); Chloride 107 mmol/L (98-107); Globulin 2.5 g/dL; Glucose 166 mg/dL (74-99); Magnesium 2.6 mg/dL (1.6-2.3); Non-African American GFR(CKD) 6 (>60 ml/min/1.73 sqM); Potassium 3.9 mmol/L (3.5-5.1); Sodium 134 mmol/L (137-145); Total Bilirubin 0.7 mg/dL (0.2-1.3); Total Protein 5.8 g/dL (6.3-8.2)
[2023-08-27] MEDS: FAMOTIDINE 20 MG TAB PO SCH (09:58)
--- NOTE | 2023-08-27 10:35 | P.NPCON ---
History of Present Illness - Reason for Consult acute renal failure, chronic renal failure - History of Present Illness Reason for consultation: Acute kidney injury on chronic kidney disease History of present illness: Patient is a 68-year-old male seen in renal consultation for acute kidney injury on chronic kidney disease. Patient has history of chronic kidney disease stage IV secondary to obstructive uropathy and diabetic kidney disease. Patient's creatinine in February 2023 was 2.5 with GFR 25. Patient came to the hospital due to back pain and generalized fatigue. Patient states he has been feeling unwell for about 3 days now and oral intake has been poor. Patient does have longstanding history of diabetes. He also has coronary artery disease with cardiac stents. He is currently receiving IV fluids. Creatinine was 8.04 on admission and is 8.39 today. He denies chest pain or shortness of breath. Has been voiding. No gross hematuria or dysuria. Denies use of nonsteroidals. Denies family history of renal disease. Kidney ultrasound showed no evidence of hydronephrosis. Patient is also noted to be quite acidotic with a bicarb level of 16 on admission and 15 today. No fever or chills. Vital signs are stable. General: No acute distress. HEENT: Head exam is unremarkable. LUNGS: No audible rhonchi or wheezes. HEART: Rate and Rhythm are regular. ABDOMEN: Nontender. EXTREMITITES: No edema. Past Medical History Past Medical History: Diabetes Mellitus, Hyperlipidemia, Myocardial Infarction ([place]) Additional Past Medical History / Comment(s): kidney failure - stage 4 Last Myocardial Infarction Date:: 1998 History of Any Multi-Drug Resistant Organisms: None Reported Past Surgical History: Appendectomy, Heart Catheterization With Stent Additional Past Surgical History / Comment(s): Heart cath with stent 20 years ago, stent 12/09/2018 Past Anesthesia/Blood Transfusion Reactions: No Reported Reaction Date of Last Stent Placement:: 1998 Past Psychological History: No Psychological Hx Reported Smoking Status: Former smoker Past Alcohol Use History: Daily, Heavy Additional Past Alcohol Use History / Comment(s): Patient states he used to drink about 8 beers a day, now up to a fifth a day most days. Last drink was a sip of whiskey Saturday morning Past Drug Use History: None Reported Medications and Allergies Home Medications Medication Instructions Recorded Confirmed Type Metoprolol Tartrate [Lopressor] 50 mg PO BID 12/10/15 08/27/23 History Omeprazole 20 mg PO BID 12/10/15 08/27/23 History Dapagliflozin Propanediol [Farxiga] 10 mg PO DAILY 12/09/18 08/27/23 History Rosuvastatin Calcium 40 mg PO HS 02/16/20 08/27/23 History Tamsulosin [Flomax] 0.4 mg PO PC-SUPPER 30 Days #30 cap 03/19/22 08/27/23 Rx Ergocalciferol (Vitamin D2) 1,250 mcg PO Q7D 08/27/23 08/27/23 History [Drisdol (50,000 Iu)] Ferrous Sulfate [Feosol] 325 mg PO DAILY 08/27/23 08/27/23 History Insulin Glargine,Hum.rec.anlog 60 units SQ HS 08/27/23 08/27/23 History [Lantus Solostar Pen] Losartan [Cozaar] 25 mg PO DAILY 08/27/23 08/27/23 History Magnesium Oxide [Mag-Ox] 400 mg PO BID 08/27/23 08/27/23 History Sodium Bicarbonate Tab 650 mg PO DAILY 08/27/23 08/27/23 History amLODIPine [Norvasc] 10 mg PO DAILY 08/27/23 08/27/23 History Allergies Allergy/AdvReac Type Severity Reaction Status Date / Time Latex, Natural Rubber Allergy Rash/Hives Verified 08/26/23 20:46 codeine AdvReac Rapid Verified 08/26/23 20:46 Heart Rate meperidine HCl [From Demerol] AdvReac Rapid Verified 08/26/23 20:46 Heart Rate Physical Exam Vitals: Vital Signs Temp Pulse Pulse Resp BP BP Pulse Ox 08/27/23 07:45 98.5 F 71 16 137/76 08/27/23 02:52 98.7 F 67 16 140/72 96 08/27/23 02:00 67 16 132/74 95 08/27/23 01:00 65 18 135/71 96 08/27/23 00:00 60 18 141/80 96 08/26/23 20:43 98.3 F 65 18 135/65 98 Intake and Output 08/26/23 08/27/23 08/27/23 22:59 06:59 14:59 Other: Voiding Method Toilet Urinal # Voids 1 Weight 86.183 kg 86.183 kg Results - Lab Results Most recent lab results Calcium 6.9 mg/dL (8.4-10.2) L 08/27/23 09:17 Magnesium 2.6 mg/dL (1.6-2.3) H 08/27/23 09:17 08/26/23 21:12 08/27/23 09:17 Assessment and Plan Plan: Assessment: 1. Acute kidney injury secondary to ATN. Creatinine 8.39 today. No hydronephrosis noted on kidney ultrasound. 2. Chronic kidney disease stage IV with baseline creatinine near 2.5-2.7 secondary to obstructive uropathy and diabetic kidney disease. 3. Diabetes mellitus. 4. Metabolic acidosis secondary to acute kidney injury. 5. Hypertension with chronic kidney disease. Stable. 6. Hypovolemic hyponatremia improving with IV fluids. Plan: Change normal saline to bicarb drip. Check bladder scan to rule out urinary retention. Avoid nephrotoxins. Continue to hold Cozaar and Farxiga. Continue to assess daily for need for renal replacement therapy. No urgency at this time. Thank you for the consultation. I will continue to follow the patient with you during his hospital stay.
[2023-08-27] MEDS: DEXTROSE 5% IN WATER 1,000 ML with SODIUM BICARB (1 MEQ/ML) 150 ML IV SCH (12:54)
[2023-08-27] MEDS: ACETAMINOPHEN TAB 325 MG TAB PO PRN (12:54)
--- NOTE | 2023-08-27 17:03 | P.HPIM ---
History of Present Illness H&P Date: 08/27/23 Bill Gee, is a 68-year-old male who presented to [facility] emergency room with a chief complaint of lower back pain and generalized weakness. He was evaluated in the emergency room vital examination on presentation revealed a temperature of 98.3 pulse 65 respiration 18 blood pressure 135/65 pulse ox 98% on room air Laboratory data revealed a white blood count of 4.8 hemoglobin 12.3 platelet count 111 sodium 132 potassium 4.4 chloride 103 CO2 16 BUN 45 creatinine 8.04 AST 580 ALT 146 Testing in the emergency room revealed KUB revealed nonspecific abdomen, kidney ultrasound revealed no evidence of hydronephrosis, EKG revealed sinus rhythm with first-degree AV block Patient was admitted to medical floor for further evaluation and treatment Past Medical History Past Medical History: Diabetes Mellitus, Hyperlipidemia, Myocardial Infarction ([place]) Additional Past Medical History / Comment(s): kidney failure - stage 4 Last Myocardial Infarction Date:: 1998 History of Any Multi-Drug Resistant Organisms: None Reported Past Surgical History: Appendectomy, Heart Catheterization With Stent Additional Past Surgical History / Comment(s): Heart cath with stent 20 years ago, stent 12/09/2018 Past Anesthesia/Blood Transfusion Reactions: No Reported Reaction Date of Last Stent Placement:: 1998 Past Psychological History: No Psychological Hx Reported Smoking Status: Former smoker Past Alcohol Use History: Daily, Heavy Additional Past Alcohol Use History / Comment(s): Patient states he used to drink about 8 beers a day, now up to a fifth a day most days. Last drink was a sip of whiskey Saturday morning Past Drug Use History: None Reported Medications and Allergies Home Medications Medication Instructions Recorded Confirmed Type Metoprolol Tartrate [Lopressor] 50 mg PO BID 12/10/15 08/27/23 History Omeprazole 20 mg PO BID 12/10/15 08/27/23 History Dapagliflozin Propanediol [Farxiga] 10 mg PO DAILY 12/09/18 08/27/23 History Rosuvastatin Calcium 40 mg PO HS 02/16/20 08/27/23 History Tamsulosin [Flomax] 0.4 mg PO PC-SUPPER 30 Days #30 cap 03/19/22 08/27/23 Rx Ergocalciferol (Vitamin D2) 1,250 mcg PO Q7D 08/27/23 08/27/23 History [Drisdol (50,000 Iu)] Ferrous Sulfate [Feosol] 325 mg PO DAILY 08/27/23 08/27/23 History Insulin Glargine,Hum.rec.anlog 60 units SQ HS 08/27/23 08/27/23 History [Lantus Solostar Pen] Losartan [Cozaar] 25 mg PO DAILY 08/27/23 08/27/23 History Magnesium Oxide [Mag-Ox] 400 mg PO BID 08/27/23 08/27/23 History Sodium Bicarbonate Tab 650 mg PO DAILY 08/27/23 08/27/23 History amLODIPine [Norvasc] 10 mg PO DAILY 08/27/23 08/27/23 History Allergies Allergy/AdvReac Type Severity Reaction Status Date / Time Latex, Natural Rubber Allergy Rash/Hives Verified 08/26/23 20:46 codeine AdvReac Rapid Verified 08/26/23 20:46 Heart Rate meperidine HCl [From Demerol] AdvReac Rapid Verified 08/26/23 20:46 Heart Rate Physical Exam Vitals: Vital Signs Temp Pulse Pulse Resp BP BP Pulse Ox 08/27/23 11:25 98.6 F 69 16 136/66 94 L 08/27/23 07:45 98.5 F 71 16 137/76 08/27/23 02:52 98.7 F 67 16 140/72 96 08/27/23 02:00 67 16 132/74 95 08/27/23 01:00 65 18 135/71 96 08/27/23 00:00 60 18 141/80 96 08/26/23 20:43 98.3 F 65 18 135/65 98 Intake and Output 08/26/23 08/27/23 08/27/23 22:59 06:59 14:59 Output Total 125 Balance -125 Output: Post Void Residual 125 Other: Voiding Method Toilet Toilet Urinal Urinal # Voids 1 2 Weight 86.183 kg 86.183 kg In general patient is alert and oriented x 3 in no distress HEENT head normocephalic and atraumatic Neck is supple no JVD no goiter no lymphadenopathy no carotid bruit Chest examination is clear to auscultation no crackles no wheezing Cardiac exam reveals regular heart sounds S1 and S2 no gallops no murmurs Abdomen is soft nontender no organomegaly with normal bowel sounds Extremity exam reveals no edema no cyanosis or clubbing Neurological examination reveals no gross focal deficits Results CBC & Chem 7: 08/26/23 21:12 08/27/23 09:17 Labs: Abnormal Lab Results - Last 24 Hours (Table) 08/26/23 08/26/23 08/27/23 Range/Units 21:12 21:12 00:25 RBC 4.01 L (4.30-5.90) m/uL Hgb 12.3 L (13.0-17.5) gm/dL Hct 35.1 L (39.0-53.0) % Plt Count 111 L (150-450) k/uL Lymphocytes # 0.6 L (1.0-4.8) k/uL Sodium 132 L (137-145) mmol/L Carbon Dioxide 16 L (22-30) mmol/L BUN 45 H (9-20) mg/dL Creatinine 8.04 H* (0.66-1.25) mg/dL Glucose 144 H (74-99) mg/dL Osmolality (275-295) mOsm/kg Calcium 7.7 L (8.4-10.2) mg/dL Magnesium 2.7 H (1.6-2.3) mg/dL AST 580 H (17-59) U/L ALT 146 H (4-49) U/L Total Protein (6.3-8.2) g/dL Albumin (3.5-5.0) g/dL Urine Osmolality 196 L (400-1100) mOsm/kg Ur Random Potassium (25.0-125.0) mmol/L 08/27/23 08/27/23 08/27/23 Range/Units 00:25 00:25 09:17 RBC (4.30-5.90) m/uL Hgb (13.0-17.5) gm/dL Hct (39.0-53.0) % Plt Count (150-450) k/uL Lymphocytes # (1.0-4.8) k/uL Sodium 134 L (137-145) mmol/L Carbon Dioxide 15 L (22-30) mmol/L BUN 42 H (9-20) mg/dL Creatinine 8.39 H* (0.66-1.25) mg/dL Glucose 166 H (74-99) mg/dL Osmolality 302 H (275-295) mOsm/kg Calcium 6.9 L (8.4-10.2) mg/dL Magnesium 2.6 H (1.6-2.3) mg/dL AST 375 H (17-59) U/L ALT 112 H (4-49) U/L Total Protein 5.8 L (6.3-8.2) g/dL Albumin 3.3 L (3.5-5.0) g/dL Urine Osmolality (400-1100) mOsm/kg Ur Random Potassium 17.7 L (25.0-125.0) mmol/L Thrombosis Risk Factor Assmnt - Choose All That Apply Any of the Below Risk Factors Present?: Yes Each Factor Represents 1 point: Obesity (BMI >25) Other Risk Factors: Yes Each Risk Factor Represents 2 Points: Age 61-74 years Other congenital or acquired thrombophilia - If yes, enter type in comment: No Thrombosis Risk Factor Assessment Total Risk Factor Score: 3 Thrombosis Risk Factor Assessment Level: Moderate Risk Assessment and Plan Plan: Acute kidney injury on top of chronic kidney disease Elevated liver enzymes Acute mid and lower back pain Underlying history of hypertension Underlying history of hyperlipidemia Underlying history of insulin-dependent diabetes mellitus Underlying history of benign prostatic hypertrophy Underlying history of anemia At this time patient is admitted to medical floor Home medications reviewed and reordered Nephrology consultation requested Will obtain x-ray of the thoracic and lumbar spine Recheck labs in a.m. Will follow closely
[2023-08-27] MEDS: TAMSULOSIN 0.4 MG CAP.ER.24H PO SCH (17:26)
--- NOTE | 2023-08-27 19:18 | XR ---
EXAMINATION TYPE: XR thoracic spine 3 views, XR lumbar spine 3V DATE OF EXAM: 08/27/2023 COMPARISON: NONE HISTORY: 68-year-old male with low back pain FINDINGS: Thoracic spine: 12 rib-bearing thoracic vertebral bodies. All pedicles are visualized. Mild degenerative disc disease mid to lower thoracic spine. Vertebral body heights are preserved and alignment is maintained. Lumbar spine: 5 lumbar type vertebral bodies. Facet arthropathy mid to lower lumbar spine. Mild degenerative disc d isease mid to lower lumbar spine. Vertebral body heights are preserved and alignment is maintained. D ense atherosclerotic calcifications of the abdominal aorta with caliber up to 3.1 cm. 6 mm left-sided mid abdominal calcification also noted. IMPRESSION: Thoracic spine: 1. Mild degenerative disc disease mid to lower thoracic spine. 2. No vertebral compression collapse or malalignment. Lumbar spine: 3. Facet arthropathy mid to lower lumbar spine along with mild degenerative disc disease. 4. No vertebral compression collapse or malalignment. 5. Possible 6 mm left renal calculus. 6. Prominent atherosclerotic calcifications abdominal aorta with possible mild aneurysm of 3.1 cm.
[2023-08-27 19:59] LABS: Glucose,Whole Blood 175 mg/dL (70-110)
[2023-08-27] MEDS: INSULIN DETEMIR (LEVEMIR) 100 UNIT/ML SYR SQ SCH (20:51)
[2023-08-27] MEDS: INSULIN ASPART (NovoLOG) 100 UNIT/ML VIAL SQ SCH (20:51)
[2023-08-27] MEDS: METOPROLOL TARTRATE 50 MG TAB PO SCH (20:52)
[2023-08-28 07:10] LABS: Glucose,Whole Blood 177 mg/dL (70-110)
[2023-08-28] MEDS: THIAMINE 100 MG TAB PO SCH (10:05)
[2023-08-28] MEDS: FERROUS SULFATE 325 MG TAB PO SCH (10:06)
[2023-08-28] MEDS: SODIUM BICARBONATE TAB 650 MG TAB PO SCH (10:06)
[2023-08-28] MEDS: ERGOCALCIFEROL 1,250 MCG (50,000 IU) CAPSULE PO SCH (10:06)
--- NOTE | 2023-08-28 11:22 | P.PN ---
Subjective Patient is seen in follow-up for acute kidney injury on chronic kidney disease. Patient has chronic kidney disease stage IV secondary to obstructive uropathy and diabetic kidney disease with baseline creatinine near 2.5. Admits to good urine output. Currently on bicarb drip. Hemodynamically stable. No vomiting or diarrhea. Vital signs are stable. General: No acute distress. HEENT: Head exam is unremarkable. LUNGS: No audible rhonchi or wheezes. HEART: Rate and Rhythm are regular. ABDOMEN: Nontender. EXTREMITITES: No edema. Objective - Vital Signs Vital signs: Vital Signs Temp 98.5 F 08/28/23 07:30 Pulse 61 08/28/23 07:30 Resp 16 08/28/23 07:30 BP 151/78 08/28/23 07:30 Pulse Ox 97 08/28/23 07:30 FiO2 Intake & Output 08/27/23 08/28/23 08/28/23 18:59 06:59 18:59 Intake Total 590 Output Total 425 1200 Balance -425 -610 Intake: Oral 590 Output: Urine 300 1200 Post Void Residual 125 Other: Voiding Method Toilet Toilet Urinal Urinal Urinal # Voids 1 1 - Labs CBC & Chem 7: 08/26/23 21:12 08/27/23 09:17 Labs: Abnormal Lab Results - Last 24 Hours (Table) 08/27/23 08/28/23 Range/Units 19:59 07:08 POC Glucose (mg/dL) 175 H 177 H (70-110) mg/dL Assessment and Plan Plan: Assessment: 1. Acute kidney injury secondary to ATN vs progression of CKD. Creatinine 8.39 yesterday. No hydronephrosis noted on kidney ultrasound. 2. Chronic kidney disease stage IV with baseline creatinine near 2.5-2.7 secondary to obstructive uropathy and diabetic kidney disease. 3. Diabetes mellitus. 4. Metabolic acidosis secondary to acute kidney injury. On bicarb drip. 5. Hypertension with chronic kidney disease. Stable. 6. Hypovolemic hyponatremia improving with IV fluids. Plan: Maintain bicarb drip. Avoid nephrotoxins. Continue to hold Cozaar and Farxiga. Continue to assess daily for need for renal replacement therapy. Discussed with patient that if no improvement in his renal function today, will initiate renal replacement therapy. Patient agreeable with the plan. Follow-up morning labs.
[2023-08-28 11:55] LABS: ALT 80 U/L (4-49); AST 254 U/L (17-59); African American GFR (CKD) 6 (>60 ml/min/1.73 sqM); Albumin 3.2 g/dL (3.5-5.0); Albumin/Globulin Ratio 1.3; Alkaline Phosphatase 86 U/L (38-126); Anion Gap 8 mmol/L; Blood Urea Nitrogen 41 mg/dL (9-20); Calcium 7.1 mg/dL (8.4-10.2); Carbon Dioxide 24 mmol/L (22-30); Chloride 102 mmol/L (98-107); Globulin 2.4 g/dL; Glucose 225 mg/dL (74-99); Non-African American GFR(CKD) 6 (>60 ml/min/1.73 sqM); Potassium 3.4 mmol/L (3.5-5.1); Sodium 134 mmol/L (137-145); Total Bilirubin 0.6 mg/dL (0.2-1.3); Total Protein 5.6 g/dL (6.3-8.2)
[2023-08-28 12:11] LABS: Glucose,Whole Blood 212 mg/dL (70-110)
[2023-08-28 13:18] LABS: Glucose,Whole Blood 184 mg/dL (70-110)
[2023-08-28] MEDS: POTASSIUM CHLORIDE ER 20 MEQ TAB.ER PO STA (13:45)
[2023-08-28] MEDS: SODIUM CHLORIDE 0.9% 1,000 ML IV SCH (13:46)
[2023-08-28 17:30] LABS: Glucose,Whole Blood 145 mg/dL (70-110)
[2023-08-28 20:18] LABS: Glucose,Whole Blood 195 mg/dL (70-110)
[2023-08-29 07:36] LABS: Glucose,Whole Blood 133 mg/dL (70-110)
--- NOTE | 2023-08-29 08:58 | P.PN ---
Subjective Progress Note Date: 08/29/23 Bill Gee, is a 68-year-old male who presented to [facility] emergency room with a chief complaint of lower back pain and generalized weakness. He was evaluated in the emergency room vital examination on presentation revealed a temperature of 98.3 pulse 65 respiration 18 blood pressure 135/65 pulse ox 98% on room air Laboratory data revealed a white blood count of 4.8 hemoglobin 12.3 platelet count 111 sodium 132 potassium 4.4 chloride 103 CO2 16 BUN 45 creatinine 8.04 AST 580 ALT 146 Testing in the emergency room revealed KUB revealed nonspecific abdomen, kidney ultrasound revealed no evidence of hydronephrosis, EKG revealed sinus rhythm with first-degree AV block Patient was admitted to medical floor for further evaluation and treatment On 08/28/2023 patient was seen and examined on the medical floor he is alert and oriented 3 in no apparent distress, he is still complaining of lower back pain otherwise he denies any complaints, there is no fever or chills no headache or dizziness no chest pain no shortness of breath no cough no nausea or vomiting no abdominal pain no diarrhea and no urinary symptoms. Creatinine is still significantly elevated at 8.8, nephrology are following, possible need for renal replacement therapy during this admission, will continue to follow closely. On 08/29/2023 patient is alert and oriented 3. Patient remains on bicarb drip awaiting lab results to assess kidney function and whether patient will need renal replacement therapy per nephrology services. At this time patient denies chest pain or shortness breath. Patient denies nausea vomiting or diarrhea. Patient denies any urinary burning or frequency. Temp 98.3, heart rate 62, respiratory rate 16, blood pressure 140/60 with pulse is 95% on room Objective - Vital Signs Vital signs: Vital Signs Temp 98.3 F 08/29/23 07:22 Pulse 62 08/29/23 07:22 Resp 16 08/29/23 07:22 BP 148/68 08/29/23 07:22 Pulse Ox 95 08/29/23 07:22 FiO2 Intake & Output 08/28/23 08/29/23 08/29/23 18:59 06:59 18:59 Intake Total 720 590 Output Total 450 Balance 720 140 Intake: Intake, IV Titration 720 Amount Sodium Chloride 0.9% 1, 720 000 ml @ 60 mls/hr IV . [id number] [facility] Rx#:[id number] Oral 590 Output: Urine 450 Other: Voiding Method Urinal Toilet Urinal # Voids 1 - Exam In general patient is alert and oriented x 3 in no distress HEENT head normocephalic and atraumatic Neck is supple no JVD no goiter no lymphadenopathy no carotid bruit Chest examination is clear to auscultation no crackles no wheezing Cardiac exam reveals regular heart sounds S1 and S2 no gallops no murmurs Abdomen is soft nontender no organomegaly with normal bowel sounds Extremity exam reveals no edema no cyanosis or clubbing Neurological examination reveals no gross focal deficits - Labs CBC & Chem 7: 08/26/23 21:12 08/28/23 11:14 Labs: Abnormal Lab Results - Last 24 Hours (Table) 08/28/23 08/28/23 08/28/23 Range/Units 11:14 11:59 12:54 Sodium 134 L (137-145) mmol/L Potassium 3.4 L (3.5-5.1) mmol/L BUN 41 H (9-20) mg/dL Creatinine 8.82 H* (0.66-1.25) mg/dL Glucose 225 H (74-99) mg/dL POC Glucose (mg/dL) 212 H 184 H (70-110) mg/dL Calcium 7.1 L (8.4-10.2) mg/dL AST 254 H (17-59) U/L ALT 80 H (4-49) U/L Total Protein 5.6 L (6.3-8.2) g/dL Albumin 3.2 L (3.5-5.0) g/dL 08/28/23 08/28/23 08/29/23 Range/Units 17:26 20:15 07:33 Sodium (137-145) mmol/L Potassium (3.5-5.1) mmol/L BUN (9-20) mg/dL Creatinine (0.66-1.25) mg/dL Glucose (74-99) mg/dL POC Glucose (mg/dL) 145 H 195 H 133 H (70-110) mg/dL Calcium (8.4-10.2) mg/dL AST (17-59) U/L ALT (4-49) U/L Total Protein (6.3-8.2) g/dL Albumin (3.5-5.0) g/dL Assessment and Plan Plan: Acute kidney injury on top of chronic kidney disease Elevated liver enzymes Acute mid and lower back pain Underlying history of hypertension Underlying history of hyperlipidemia Underlying history of insulin-dependent diabetes mellitus Underlying history of benign prostatic hypertrophy Underlying history of anemia At this time patient is admitted to medical floor Home medications reviewed and reordered Nephrology consultation requested Patient maintained on bicarb drip Will obtain x-ray of the thoracic and lumbar spine Recheck labs in a.m. Will follow closely
[2023-08-29 10:44] LABS: Magnesium 2.2 mg/dL (1.5-2.4)
[2023-08-29 10:58] LABS: ALT 67 U/L (10-49); AST 170 U/L (14-35); Albumin 3.4 g/dL (3.8-4.9); Albumin/Globulin Ratio 1.55 Ratio (1.60-3.17); Alkaline Phosphatase 79 U/L (41-126); BUN/Creat Ratio 4.06 Ratio (12.00-20.00); Blood Urea Nitrogen 37.8 mg/dL (9.0-27.0); Calcium 7.4 mg/dL (8.7-10.3); Carbon Dioxide 20.5 mmol/L (21.6-31.8); Chloride 103 mmol/L (96-109); Globulin 2.2 g/dL (1.6-3.3); Glucose 139 mg/dL (70-110); Potassium 3.8 mmol/L (3.5-5.5); Sodium 138 mmol/L (135-145); Total Bilirubin 0.4 mg/dL (0.3-1.2); Total Protein 5.6 g/dL (6.2-8.2)
[2023-08-29 11:21] LABS: Basophils # (A) 0.04 X 10*3/uL (0.00-0.10); Basophils % (A) 0.8 %; Eosinophils # (A) 0.14 X 10*3/uL (0.04-0.35); Eosinophils % (A) 2.8 %; HCT 30.9 % (39.6-50.0); HGB 10.7 g/dL (13.0-17.0); Lymphocytes # (A) 0.81 X 10*3/uL (0.90-5.00); Lymphocytes % (A) 16.5 %; MCH 30.7 pg (27.0-32.0); MCHC 34.6 g/dL (32.0-37.0); MCV 88.8 FL (80.0-97.0); Mean Platelet Volume 11.5 FL (9.5-12.2); Monocytes # (A) 0.42 X 10*3/uL (0.20-1.00); Monocytes % (A) 8.5 %; NRBC Per 100 WBC 0 X 10*3/uL (0.00-0.01); Neutrophils # (A) 3.48 X 10*3/uL (1.80-7.70); Neutrophils % (A) 70.8 %; Platelet Count 85 X 10*3/uL (140-440); RBC 3.48 X 10*6/uL (4.40-5.60); RBC Morphology Normal (Normal); RDW 14.8 % (11.5-14.5); WBC 4.92 X 10*3/uL (4.50-10.00)
--- NOTE | 2023-08-29 11:41 | P.PN ---
Subjective Patient is seen in follow-up for acute kidney injury on chronic kidney disease. Patient has chronic kidney disease stage IV secondary to obstructive uropathy and diabetic kidney disease with baseline creatinine near 2.5. Admits to good urine output. Currently on normal saline. Hemodynamically stable. No vomiting or diarrhea. No improvement in renal function. Dialysis catheter placement pending. Vital signs are stable. General: No acute distress. HEENT: Head exam is unremarkable. LUNGS: No audible rhonchi or wheezes. HEART: Rate and Rhythm are regular. ABDOMEN: Nontender. EXTREMITITES: No edema. Objective - Vital Signs Vital signs: Vital Signs Temp 98.3 F 08/29/23 07:22 Pulse 62 08/29/23 07:22 Resp 16 08/29/23 07:22 BP 148/68 08/29/23 07:22 Pulse Ox 95 08/29/23 07:22 FiO2 Intake & Output 08/28/23 08/29/23 08/29/23 18:59 06:59 18:59 Intake Total 720 590 Output Total 450 Balance 720 140 Intake: Intake, IV Titration 720 Amount Sodium Chloride 0.9% 1, 720 000 ml @ 60 mls/hr IV . [id number] REPLACED BY [facility] Rx#:[id number] Oral 590 Output: Urine 450 Other: Voiding Method Urinal Toilet Urinal # Voids 1 - Labs CBC & Chem 7: 08/29/23 06:35 08/29/23 06:35 Labs: Abnormal Lab Results - Last 24 Hours (Table) 08/28/23 08/28/23 08/28/23 Range/Units 11:14 11:59 12:54 RBC (4.40-5.60) X 10*6/uL Hgb (13.0-17.0) g/dL Hct (39.6-50.0) % RDW (11.5-14.5) % Plt Count (140-440) X 10*3/uL Lymphocytes # (0.90-5.00) X 10*3/uL Sodium 134 L (137-145) mmol/L Potassium 3.4 L (3.5-5.1) mmol/L Carbon Dioxide (21.6-31.8) mmol/L Anion Gap (4.00-12.00) mmol/L BUN 41 H (9-20) mg/dL Creatinine 8.82 H* (0.66-1.25) mg/dL Est GFR (CKD-EPI) (>=60) BUN/Creatinine Ratio (12.00-20.00) Ratio Glucose 225 H (74-99) mg/dL POC Glucose (mg/dL) 212 H 184 H (70-110) mg/dL Calcium 7.1 L (8.4-10.2) mg/dL AST 254 H (17-59) U/L ALT 80 H (4-49) U/L Total Protein 5.6 L (6.3-8.2) g/dL Albumin 3.2 L (3.5-5.0) g/dL Albumin/Globulin Ratio (1.60-3.17) Ratio 08/28/23 08/28/23 08/29/23 Range/Units 17:26 20:15 06:35 RBC (4.40-5.60) X 10*6/uL Hgb (13.0-17.0) g/dL Hct (39.6-50.0) % RDW (11.5-14.5) % Plt Count (140-440) X 10*3/uL Lymphocytes # (0.90-5.00) X 10*3/uL Sodium (137-145) mmol/L Potassium (3.5-5.1) mmol/L Carbon Dioxide 20.5 L (21.6-31.8) mmol/L Anion Gap 14.50 H (4.00-12.00) mmol/L BUN 37.8 H (9-20) mg/dL Creatinine 9.3 A* (0.66-1.25) mg/dL Est GFR (CKD-EPI) 6 L (>=60) BUN/Creatinine Ratio 4.06 L (12.00-20.00) Ratio Glucose 139 H (74-99) mg/dL POC Glucose (mg/dL) 145 H 195 H (70-110) mg/dL Calcium 7.4 L (8.4-10.2) mg/dL AST 170 H (17-59) U/L ALT 67 H (4-49) U/L Total Protein 5.6 L (6.3-8.2) g/dL Albumin 3.4 L (3.5-5.0) g/dL Albumin/Globulin Ratio 1.55 L (1.60-3.17) Ratio 08/29/23 08/29/23 Range/Units 06:35 07:33 RBC 3.48 L (4.40-5.60) X 10*6/uL Hgb 10.7 L (13.0-17.0) g/dL Hct 30.9 L (39.6-50.0) % RDW 14.8 H (11.5-14.5) % Plt Count 85 L (140-440) X 10*3/uL Lymphocytes # 0.81 L (0.90-5.00) X 10*3/uL Sodium (137-145) mmol/L Potassium (3.5-5.1) mmol/L Carbon Dioxide (21.6-31.8) mmol/L Anion Gap (4.00-12.00) mmol/L BUN (9-20) mg/dL Creatinine (0.66-1.25) mg/dL Est GFR (CKD-EPI) (>=60) BUN/Creatinine Ratio (12.00-20.00) Ratio Glucose (74-99) mg/dL POC Glucose (mg/dL) 133 H (70-110) mg/dL Calcium (8.4-10.2) mg/dL AST (17-59) U/L ALT (4-49) U/L Total Protein (6.3-8.2) g/dL Albumin (3.5-5.0) g/dL Albumin/Globulin Ratio (1.60-3.17) Ratio Assessment and Plan Plan: Assessment: 1. Acute kidney injury secondary to ATN vs progression of CKD. Creatinine 8.39 yesterday. No hydronephrosis noted on kidney ultrasound. 2. Chronic kidney disease stage IV with baseline creatinine near 2.5-2.7 secondary to obstructive uropathy and diabetic kidney disease. 3. Diabetes mellitus. 4. Metabolic acidosis secondary to acute kidney injury and IV fluids. Status post bicarb drip. 5. Hypertension with chronic kidney disease. Stable. 6. Hypovolemic hyponatremia improving with IV fluids. Plan: Maintain normal saline. Avoid nephrotoxins. Continue to hold Cozaar and Farxiga. Increase bicarb frequency to twice daily. Check phosphorus level. Check urinalysis. Due to no improvement in renal function, initiate renal placement therapy. Permacath placement pending. Plan for first treatment of hemodialysis either today or tomorrow depending on when the catheter is placed. Outpatient dialysis to be set up by pillowcase cutter. Monitor for renal recovery outpatient. Patient in agreement with the plan.
[2023-08-29 11:58] LABS: Glucose,Whole Blood 156 mg/dL (70-110)
[2023-08-29 13:53] LABS: Appearance,Urine Clear (Clear); Bilirubin,Urine Negative (Negative); Blood,Urine Moderate (Negative); Color,Urine Colorless; Glucose,Urine (UA) 3+ (Negative); Ketones,Urine Negative (Negative); Leukocyte Esterase,Urine Negative (Negative); Nitrite,Urine Negative (Negative); Protein,Urine 1+ (Negative); RBC,Urine 7 /hpf (0-5); Specific Gravity,Urine 1.006 (1.001-1.035); Urobilinogen,Urine <2.0 mg/dL (<2.0); WBC,Urine 2 /hpf (0-5)
[2023-08-29] MEDS: LIDOCAINE 1% INJ 10MG/ML (20 ML MDV) SQ ONE (14:57)
[2023-08-29] MEDS: SODIUM CHLORIDE 0.9% 250 ML IV ONE (14:58)
[2023-08-29] MEDS: MIDAZOLAM 2 MG/2 ML VIAL IVP ONE (14:58)
[2023-08-29] MEDS: fentaNYL (PF) 50 MCG/1 ML VIAL IVP ONE (14:58)
[2023-08-29] MEDS: LIDOCAINE 1% INJ 10MG/ML (10 ML MDV) SQ ONE (15:28)
[2023-08-29] MEDS: HEPARIN SODIUM 1,000 UN/ML (10ML VL) IV ONE (15:32)
[2023-08-29 15:46] LABS: Albumin 3.5 g/dL (3.8-4.9); Albumin/Globulin Ratio 1.59 Ratio (1.60-3.17); Bilirubin, Conjugated 0.25 mg/dL (0.20-0.40); Bilirubin,Unconjugated 0.15 mg/dL (0.20-1.00); Globulin 2.2 g/dL (1.6-3.3); Total Bilirubin 0.4 mg/dL (0.3-1.2); Total Protein 5.7 g/dL (6.2-8.2)
[2023-08-29 17:04] LABS: Glucose,Whole Blood 152 mg/dL (70-110)
--- NOTE | 2023-08-29 17:41 | XR ---
EXAMINATION TYPE: XR chest 1V confirm line [facility] DATE OF EXAM: 08/29/2023 COMPARISON: 09/24/2020 HISTORY: 68-year-old male hemodialysis catheter insertion TECHNIQUE: Single frontal view of the chest is obtained. FINDINGS: Right-sided double-lumen hemodialysis catheter with tips at the cavoatrial junction. Heart borderline enlarged. No consolidation or pleural effusion. No pneumothorax. IMPRESSION: Borderline cardiomegaly. Right-sided double-lumen hemodialysis catheter with tips at the cavoatrial j unction. No acute process seen.
[2023-08-29 19:36] LABS: Hepatitis B Surface Antigen Nonreactive
--- NOTE | 2023-08-29 19:52 | OP ---
OPERATIVE REPORT DATE OF SERVICE : PREOPERATIVE DIAGNOSIS: Acute chronic failure. POSTOPERATIVE DIAGNOSIS: Acute chronic failure. PROCEDURE PERFORMED: Under local and IV sedation, ultrasound-guided dialysis catheter placed in the right jugular approach. DESCRIPTION OF PROCEDURE: The patient was brought to the laboratory aide. Right side of the neck and chest was prepped and draped in a sterile manner. 1% lidocaine was infiltrated with IV sedation. Ultrasound-guided micropuncture was introduced into the right jugular vein. Micropuncture guidewire was passed and 4-Qatari dilator advanced on top of the guidewire. After that, we created a tunnel. Through the tunnel, we brought 23 cm dialysis catheter. We passed a guidewire, which was parked at the inferior vena cava. Dilator was advanced on top of the guidewire and then we placed a sheath on the top of the guidewire. Through the sheath, we introduced the dialysis catheter. Tip of catheter in superior vena and atrial junction, flushed with heparin saline and hep-locked, secured with 3-0 nylon dressing applied. The patient tolerated the procedure well. MMODL / IJN: [id number] /
[2023-08-29 20:22] LABS: Hepatitis B Surface AB- Quant 3.5 mIU/mL
[2023-08-29 20:22] LABS: Glucose,Whole Blood 227 mg/dL (70-110)
[2023-08-29] MEDS: SODIUM BICARBONATE TAB 650 MG TAB PO SCH (21:15)
[2023-08-30 07:25] LABS: Glucose,Whole Blood 138 mg/dL (70-110)
[2023-08-30 08:20] LABS: Basophils # (A) 0.03 X 10*3/uL (0.00-0.10); Basophils % (A) 0.7 %; Eosinophils # (A) 0.19 X 10*3/uL (0.04-0.35); Eosinophils % (A) 4.2 %; HCT 31.8 % (39.6-50.0); HGB 10.6 g/dL (13.0-17.0); Lymphocytes # (A) 1.04 X 10*3/uL (0.90-5.00); Lymphocytes % (A) 23.1 %; MCHC 33.3 g/dL (32.0-37.0); MCV 90.1 FL (80.0-97.0); Mean Platelet Volume 11.1 FL (9.5-12.2); Monocytes % (A) 8.9 %; NRBC Per 100 WBC 0 X 10*3/uL (0.00-0.01); Neutrophils # (A) 2.83 X 10*3/uL (1.80-7.70); Neutrophils % (A) 62.9 %; Platelet Count 96 X 10*3/uL (140-440); RBC 3.53 X 10*6/uL (4.40-5.60); RDW 15.2 % (11.5-14.5)
[2023-08-30 08:31] LABS: Magnesium 2.2 mg/dL (1.5-2.4); Phosphorus 5.8 mg/dL (2.4-5.1)
[2023-08-30 08:41] LABS: ALT 54 U/L (10-49); AST 111 U/L (14-35); Albumin 3.4 g/dL (3.8-4.9); Albumin/Globulin Ratio 1.48 Ratio (1.60-3.17); Alkaline Phosphatase 87 U/L (41-126); BUN/Creat Ratio 4.25 Ratio (12.00-20.00); Blood Urea Nitrogen 41.2 mg/dL (9.0-27.0); Calcium 7.5 mg/dL (8.7-10.3); Carbon Dioxide 21.2 mmol/L (21.6-31.8); Chloride 103 mmol/L (96-109); Globulin 2.3 g/dL (1.6-3.3); Glucose 125 mg/dL (70-110); Potassium 3.9 mmol/L (3.5-5.5); Sodium 137 mmol/L (135-145); Total Bilirubin 0.4 mg/dL (0.3-1.2); Total Protein 5.7 g/dL (6.2-8.2)
--- NOTE | 2023-08-30 09:28 | IR ---
PICC Insertion: EXAMINATION TYPE: IR cvc insert central tunneled Intraoperative/procedural fluoroscopic services were provided. CLINICAL INDICATION:Male, 68 years old with history of hemodialysis catheter insertion, 2.7min fluoro , [id number]; , LOCATED [facility]IN [facility] Total fluoroscopy time is 2.7 min. DAP: 625 Gycm2 uGym2 Please see the operative/procedural note for further details.
--- NOTE | 2023-08-30 09:55 | P.PN ---
Subjective Progress Note Date: 08/30/23 Bill Gee, is a 68-year-old male who presented to [facility] emergency room with a chief complaint of lower back pain and generalized weakness. He was evaluated in the emergency room vital examination on presentation revealed a temperature of 98.3 pulse 65 respiration 18 blood pressure 135/65 pulse ox 98% on room air Laboratory data revealed a white blood count of 4.8 hemoglobin 12.3 platelet count 111 sodium 132 potassium 4.4 chloride 103 CO2 16 BUN 45 creatinine 8.04 AST 580 ALT 146 Testing in the emergency room revealed KUB revealed nonspecific abdomen, kidney ultrasound revealed no evidence of hydronephrosis, EKG revealed sinus rhythm with first-degree AV block Patient was admitted to medical floor for further evaluation and treatment On 08/28/2023 patient was seen and examined on the medical floor he is alert and oriented 3 in no apparent distress, he is still complaining of lower back pain otherwise he denies any complaints, there is no fever or chills no headache or dizziness no chest pain no shortness of breath no cough no nausea or vomiting no abdominal pain no diarrhea and no urinary symptoms. Creatinine is still significantly elevated at 8.8, nephrology are following, possible need for renal replacement therapy during this admission, will continue to follow closely. On 08/29/2023 patient is alert and oriented 3. Patient remains on bicarb drip awaiting lab results to assess kidney function and whether patient will need renal replacement therapy per nephrology services. At this time patient denies chest pain or shortness breath. Patient denies nausea vomiting or diarrhea. Patient denies any urinary burning or frequency. Temp 98.3, heart rate 62, respiratory rate 16, blood pressure 140/60 with pulse is 95% on room On 08/30/2023 patient is alert and oriented 3. Patient has been started on hemodialysis. Catheter placed per vascular surgery. Patient currently getting hemodialysis now and likely will repeat cycle tomorrow per nephrology services. Creatinine 9.7 bun 41.2. Current vital signs temp 98.0, heart rate 60, respiratory rate 19, blood pressure 165/77 with pulse ox 94% on room air Objective - Vital Signs Vital signs: Vital Signs Temp 98.0 F 08/30/23 07:23 Pulse 60 08/30/23 07:23 Resp 19 08/30/23 07:23 BP 165/77 08/30/23 07:23 Pulse Ox 94 L 08/30/23 07:23 FiO2 Intake & Output 08/29/23 08/30/23 08/30/23 18:59 06:59 18:59 Intake Total 125 720 Output Total 725 600 Balance 125 -5 -600 Intake: IV 125 Oral 720 Output: Urine 725 600 Other: Voiding Method Toilet Urinal # Voids 1 2 - Exam In general patient is alert and oriented x 3 in no distress HEENT head normocephalic and atraumatic Neck is supple no JVD no goiter no lymphadenopathy no carotid bruit Chest examination is clear to auscultation no crackles no wheezing Cardiac exam reveals regular heart sounds S1 and S2 no gallops no murmurs Abdomen is soft nontender no organomegaly with normal bowel sounds Extremity exam reveals no edema no cyanosis or clubbing Neurological examination reveals no gross focal deficits - Labs CBC & Chem 7: 08/30/23 05:25 08/30/23 05:25 Labs: Abnormal Lab Results - Last 24 Hours (Table) 08/29/23 08/29/23 08/29/23 Range/Units 06:35 06:35 06:35 RBC 3.48 L (4.40-5.60) X 10*6/uL Hgb 10.7 L (13.0-17.0) g/dL Hct 30.9 L (39.6-50.0) % RDW 14.8 H (11.5-14.5) % Plt Count 85 L (140-440) X 10*3/uL Lymphocytes # 0.81 L (0.90-5.00) X 10*3/uL Carbon Dioxide 20.5 L (21.6-31.8) mmol/L Anion Gap 14.50 H (4.00-12.00) mmol/L BUN 37.8 H (9.0-27.0) mg/dL Creatinine 9.3 A* (0.6-1.5) mg/dL Est GFR (CKD-EPI) 6 L (>=60) BUN/Creatinine Ratio 4.06 L (12.00-20.00) Ratio Glucose 139 H (70-110) mg/dL POC Glucose (mg/dL) (70-110) mg/dL Calcium 7.4 L (8.7-10.3) mg/dL Phosphorus (2.4-5.1) mg/dL Unconjugated Bilirubin 0.15 L (0.20-1.00) mg/dL AST 170 H 263 H (14-35) U/L ALT 67 H 90 H (10-49) U/L Total Protein 5.6 L 5.7 L (6.2-8.2) g/dL Albumin 3.4 L 3.5 L (3.8-4.9) g/dL Albumin/Globulin Ratio 1.55 L 1.59 L (1.60-3.17) Ratio Urine Protein (Negative) Urine Glucose (UA) (Negative) Urine Blood (Negative) Urine RBC (0-5) /hpf 08/29/23 08/29/23 08/29/23 Range/Units 11:47 13:38 17:02 RBC (4.40-5.60) X 10*6/uL Hgb (13.0-17.0) g/dL Hct (39.6-50.0) % RDW (11.5-14.5) % Plt Count (140-440) X 10*3/uL Lymphocytes # (0.90-5.00) X 10*3/uL Carbon Dioxide (21.6-31.8) mmol/L Anion Gap (4.00-12.00) mmol/L BUN (9.0-27.0) mg/dL Creatinine (0.6-1.5) mg/dL Est GFR (CKD-EPI) (>=60) BUN/Creatinine Ratio (12.00-20.00) Ratio Glucose (70-110) mg/dL POC Glucose (mg/dL) 156 H 152 H (70-110) mg/dL Calcium (8.7-10.3) mg/dL Phosphorus (2.4-5.1) mg/dL Unconjugated Bilirubin (0.20-1.00) mg/dL AST (14-35) U/L ALT (10-49) U/L Total Protein (6.2-8.2) g/dL Albumin (3.8-4.9) g/dL Albumin/Globulin Ratio (1.60-3.17) Ratio Urine Protein 1+ H (Negative) Urine Glucose (UA) 3+ H (Negative) Urine Blood Moderate H (Negative) Urine RBC 7 H (0-5) /hpf 08/29/23 08/30/23 08/30/23 Range/Units 20:21 05:25 05:25 RBC 3.53 L (4.40-5.60) X 10*6/uL Hgb 10.6 L (13.0-17.0) g/dL Hct 31.8 L (39.6-50.0) % RDW 15.2 H (11.5-14.5) % Plt Count 96 L (140-440) X 10*3/uL Lymphocytes # (0.90-5.00) X 10*3/uL Carbon Dioxide 21.2 L (21.6-31.8) mmol/L Anion Gap 12.80 H (4.00-12.00) mmol/L BUN 41.2 H (9.0-27.0) mg/dL Creatinine 9.7 A* (0.6-1.5) mg/dL Est GFR (CKD-EPI) 5 L (>=60) BUN/Creatinine Ratio 4.25 L (12.00-20.00) Ratio Glucose 125 H (70-110) mg/dL POC Glucose (mg/dL) 227 H (70-110) mg/dL Calcium 7.5 L (8.7-10.3) mg/dL Phosphorus 5.8 H (2.4-5.1) mg/dL Unconjugated Bilirubin (0.20-1.00) mg/dL AST 111 H (14-35) U/L ALT 54 H (10-49) U/L Total Protein 5.7 L (6.2-8.2) g/dL Albumin 3.4 L (3.8-4.9) g/dL Albumin/Globulin Ratio 1.48 L (1.60-3.17) Ratio Urine Protein (Negative) Urine Glucose (UA) (Negative) Urine Blood (Negative) Urine RBC (0-5) /hpf 08/30/23 Range/Units 07:23 RBC (4.40-5.60) X 10*6/uL Hgb (13.0-17.0) g/dL Hct (39.6-50.0) % RDW (11.5-14.5) % Plt Count (140-440) X 10*3/uL Lymphocytes # (0.90-5.00) X 10*3/uL Carbon Dioxide (21.6-31.8) mmol/L Anion Gap (4.00-12.00) mmol/L BUN (9.0-27.0) mg/dL Creatinine (0.6-1.5) mg/dL Est GFR (CKD-EPI) (>=60) BUN/Creatinine Ratio (12.00-20.00) Ratio Glucose (70-110) mg/dL POC Glucose (mg/dL) 138 H (70-110) mg/dL Calcium (8.7-10.3) mg/dL Phosphorus (2.4-5.1) mg/dL Unconjugated Bilirubin (0.20-1.00) mg/dL AST (14-35) U/L ALT (10-49) U/L Total Protein (6.2-8.2) g/dL Albumin (3.8-4.9) g/dL Albumin/Globulin Ratio (1.60-3.17) Ratio Urine Protein (Negative) Urine Glucose (UA) (Negative) Urine Blood (Negative) Urine RBC (0-5) /hpf Assessment and Plan Plan: Acute kidney injury on top of chronic kidney disease. Requiring initiation of hemodialysis Elevated liver enzymes Acute mid and lower back pain Underlying history of hypertension Underlying history of hyperlipidemia Underlying history of insulin-dependent diabetes mellitus Underlying history of benign prostatic hypertrophy Underlying history of anemia At this time patient is admitted to medical floor Home medications reviewed and reordered Nephrology consultation requested Hemodialysis started 08/30/2023 Will obtain x-ray of the thoracic and lumbar spine Recheck labs in a.m. Will follow closely
[2023-08-30 12:31] LABS: Glucose,Whole Blood 171 mg/dL (70-110)
--- NOTE | 2023-08-30 12:51 | P.PN ---
Subjective Patient is seen in follow-up for acute kidney injury on chronic kidney disease. Patient has chronic kidney disease stage IV secondary to obstructive uropathy and diabetic kidney disease with baseline creatinine near 2.5. Admits to good urine output. Currently on normal saline. Hemodynamically stable. No vomiting or diarrhea. No improvement in renal function. Underwent first treatment of hemodialysis this morning. Vital signs are stable. General: No acute distress. HEENT: Head exam is unremarkable. LUNGS: No audible rhonchi or wheezes. HEART: Rate and Rhythm are regular. ABDOMEN: Nontender. EXTREMITITES: No edema. Objective - Vital Signs Vital signs: Vital Signs Temp 98.0 F 08/30/23 11:32 Pulse 56 L 08/30/23 11:32 Resp 19 08/30/23 11:32 BP 146/74 08/30/23 11:32 Pulse Ox 94 L 08/30/23 07:23 FiO2 Intake & Output 08/29/23 08/30/23 08/30/23 18:59 06:59 18:59 Intake Total 125 720 400 Output Total 725 600 Balance 125 -5 -200 Intake: IV 125 Oral 720 Hemodialysis 400 Output: Urine 725 600 Hemodialysis 0 Other: Voiding Method Toilet Urinal # Voids 1 2 - Labs CBC & Chem 7: 08/30/23 05:25 08/30/23 05:25 Labs: Abnormal Lab Results - Last 24 Hours (Table) 08/29/23 08/29/23 08/29/23 Range/Units 06:35 13:38 17:02 RBC (4.40-5.60) X 10*6/uL Hgb (13.0-17.0) g/dL Hct (39.6-50.0) % RDW (11.5-14.5) % Plt Count (140-440) X 10*3/uL Carbon Dioxide (21.6-31.8) mmol/L Anion Gap (4.00-12.00) mmol/L BUN (9.0-27.0) mg/dL Creatinine (0.6-1.5) mg/dL Est GFR (CKD-EPI) (>=60) BUN/Creatinine Ratio (12.00-20.00) Ratio Glucose (70-110) mg/dL POC Glucose (mg/dL) 152 H (70-110) mg/dL Calcium (8.7-10.3) mg/dL Phosphorus (2.4-5.1) mg/dL Unconjugated Bilirubin 0.15 L (0.20-1.00) mg/dL AST 263 H (14-35) U/L ALT 90 H (10-49) U/L Total Protein 5.7 L (6.2-8.2) g/dL Albumin 3.5 L (3.8-4.9) g/dL Albumin/Globulin Ratio 1.59 L (1.60-3.17) Ratio Urine Protein 1+ H (Negative) Urine Glucose (UA) 3+ H (Negative) Urine Blood Moderate H (Negative) Urine RBC 7 H (0-5) /hpf 08/29/23 08/30/23 08/30/23 Range/Units 20:21 05:25 05:25 RBC 3.53 L (4.40-5.60) X 10*6/uL Hgb 10.6 L (13.0-17.0) g/dL Hct 31.8 L (39.6-50.0) % RDW 15.2 H (11.5-14.5) % Plt Count 96 L (140-440) X 10*3/uL Carbon Dioxide 21.2 L (21.6-31.8) mmol/L Anion Gap 12.80 H (4.00-12.00) mmol/L BUN 41.2 H (9.0-27.0) mg/dL Creatinine 9.7 A* (0.6-1.5) mg/dL Est GFR (CKD-EPI) 5 L (>=60) BUN/Creatinine Ratio 4.25 L (12.00-20.00) Ratio Glucose 125 H (70-110) mg/dL POC Glucose (mg/dL) 227 H (70-110) mg/dL Calcium 7.5 L (8.7-10.3) mg/dL Phosphorus 5.8 H (2.4-5.1) mg/dL Unconjugated Bilirubin (0.20-1.00) mg/dL AST 111 H (14-35) U/L ALT 54 H (10-49) U/L Total Protein 5.7 L (6.2-8.2) g/dL Albumin 3.4 L (3.8-4.9) g/dL Albumin/Globulin Ratio 1.48 L (1.60-3.17) Ratio Urine Protein (Negative) Urine Glucose (UA) (Negative) Urine Blood (Negative) Urine RBC (0-5) /hpf 08/30/23 08/30/23 Range/Units 07:23 12:29 RBC (4.40-5.60) X 10*6/uL Hgb (13.0-17.0) g/dL Hct (39.6-50.0) % RDW (11.5-14.5) % Plt Count (140-440) X 10*3/uL Carbon Dioxide (21.6-31.8) mmol/L Anion Gap (4.00-12.00) mmol/L BUN (9.0-27.0) mg/dL Creatinine (0.6-1.5) mg/dL Est GFR (CKD-EPI) (>=60) BUN/Creatinine Ratio (12.00-20.00) Ratio Glucose (70-110) mg/dL POC Glucose (mg/dL) 138 H 171 H (70-110) mg/dL Calcium (8.7-10.3) mg/dL Phosphorus (2.4-5.1) mg/dL Unconjugated Bilirubin (0.20-1.00) mg/dL AST (14-35) U/L ALT (10-49) U/L Total Protein (6.2-8.2) g/dL Albumin (3.8-4.9) g/dL Albumin/Globulin Ratio (1.60-3.17) Ratio Urine Protein (Negative) Urine Glucose (UA) (Negative) Urine Blood (Negative) Urine RBC (0-5) /hpf Assessment and Plan Plan: Assessment: 1. Acute kidney injury secondary to ATN vs progression of CKD. Creatinine 9.7 today. Started on hemodialysis August 30, 2023 via permacath. No hydronephrosis noted on kidney ultrasound. 2. Chronic kidney disease stage IV with baseline creatinine near 2.5-2.7 secondary to obstructive uropathy and diabetic kidney disease. 3. Diabetes mellitus. 4. Metabolic acidosis secondary to acute kidney injury and IV fluids. Status post bicarb drip. Now on oral bicarb. 5. Hypertension with chronic kidney disease. Stable. 6. Hypovolemic hyponatremia improved with IV fluids. 7. Hyperphosphatemia secondary to acute kidney injury. Plan: Maintain normal saline. Avoid nephrotoxins. Continue to hold Cozaar and Farxiga. Add PhosLo with meals. Second treatment of hemodialysis tomorrow. He will be maintained on Saturday schedule outpatient. Outpatient dialysis to be set up by assistant case manager. Monitor for renal recovery outpatient.
[2023-08-30 17:34] LABS: Glucose,Whole Blood 212 mg/dL (70-110)
[2023-08-30] MEDS: CALCIUM ACETATE 667 MG TAB PO SCH (17:58)
[2023-08-30 20:31] LABS: Glucose,Whole Blood 190 mg/dL (70-110)
[2023-08-30] MEDS: HYDROCORTISONE 2.5% RECTAL CREAM 30 GM TUBE RECTAL SCH (20:54)
[2023-08-31 07:11] LABS: Glucose,Whole Blood 150 mg/dL (70-110)
--- NOTE | 2023-08-31 11:52 | P.PN ---
Subjective Progress Note Date: 08/28/23 Bill Gee, is a 68-year-old male who presented to [facility] emergency room with a chief complaint of lower back pain and generalized weakness. He was evaluated in the emergency room vital examination on presentation revealed a temperature of 98.3 pulse 65 respiration 18 blood pressure 135/65 pulse ox 98% on room air Laboratory data revealed a white blood count of 4.8 hemoglobin 12.3 platelet count 111 sodium 132 potassium 4.4 chloride 103 CO2 16 BUN 45 creatinine 8.04 AST 580 ALT 146 Testing in the emergency room revealed KUB revealed nonspecific abdomen, kidney ultrasound revealed no evidence of hydronephrosis, EKG revealed sinus rhythm with first-degree AV block Patient was admitted to medical floor for further evaluation and treatment On 08/28/2023 patient was seen and examined on the medical floor he is alert and oriented 3 in no apparent distress, he is still complaining of lower back pain otherwise he denies any complaints, there is no fever or chills no headache or dizziness no chest pain no shortness of breath no cough no nausea or vomiting no abdominal pain no diarrhea and no urinary symptoms. Creatinine is still significantly elevated at 8.8, nephrology are following, possible need for renal replacement therapy during this admission, will continue to follow closely. Objective - Vital Signs Vital signs: Vital Signs Temp 98.5 F 08/28/23 07:30 Pulse 61 08/28/23 07:30 Resp 16 08/28/23 07:30 BP 151/78 08/28/23 07:30 Pulse Ox 97 08/28/23 07:30 FiO2 Intake & Output 08/27/23 08/28/23 08/28/23 18:59 06:59 18:59 Intake Total 590 Output Total 425 1200 Balance -425 -610 Intake: Oral 590 Output: Urine 300 1200 Post Void Residual 125 Other: Voiding Method Toilet Toilet Urinal Urinal Urinal # Voids 1 1 - Exam In general patient is alert and oriented x 3 in no distress HEENT head normocephalic and atraumatic Neck is supple no JVD no goiter no lymphadenopathy no carotid bruit Chest examination is clear to auscultation no crackles no wheezing Cardiac exam reveals regular heart sounds S1 and S2 no gallops no murmurs Abdomen is soft nontender no organomegaly with normal bowel sounds Extremity exam reveals no edema no cyanosis or clubbing Neurological examination reveals no gross focal deficits - Labs CBC & Chem 7: 08/26/23 21:12 08/28/23 11:14 Labs: Abnormal Lab Results - Last 24 Hours (Table) 08/27/23 08/28/23 Range/Units 19:59 07:08 POC Glucose (mg/dL) 175 H 177 H (70-110) mg/dL Assessment and Plan Plan: Acute kidney injury on top of chronic kidney disease Elevated liver enzymes Acute mid and lower back pain Underlying history of hypertension Underlying history of hyperlipidemia Underlying history of insulin-dependent diabetes mellitus Underlying history of benign prostatic hypertrophy Underlying history of anemia At this time patient is admitted to medical floor Home medications reviewed and reordered Nephrology consultation requested Will obtain x-ray of the thoracic and lumbar spine Recheck labs in a.m. Will follow closely
--- NOTE | 2023-08-31 11:54 | P.PN ---
Subjective Progress Note Date: 08/31/23 Bill Gee, is a 68-year-old male who presented to [facility] emergency room with a chief complaint of lower back pain and generalized weakness. He was evaluated in the emergency room vital examination on presentation revealed a temperature of 98.3 pulse 65 respiration 18 blood pressure 135/65 pulse ox 98% on room air Laboratory data revealed a white blood count of 4.8 hemoglobin 12.3 platelet count 111 sodium 132 potassium 4.4 chloride 103 CO2 16 BUN 45 creatinine 8.04 AST 580 ALT 146 Testing in the emergency room revealed KUB revealed nonspecific abdomen, kidney ultrasound revealed no evidence of hydronephrosis, EKG revealed sinus rhythm with first-degree AV block Patient was admitted to medical floor for further evaluation and treatment On 08/28/2023 patient was seen and examined on the medical floor he is alert and oriented 3 in no apparent distress, he is still complaining of lower back pain otherwise he denies any complaints, there is no fever or chills no headache or dizziness no chest pain no shortness of breath no cough no nausea or vomiting no abdominal pain no diarrhea and no urinary symptoms. Creatinine is still significantly elevated at 8.8, nephrology are following, possible need for renal replacement therapy during this admission, will continue to follow closely. On 08/29/2023 patient is alert and oriented 3. Patient remains on bicarb drip awaiting lab results to assess kidney function and whether patient will need renal replacement therapy per nephrology services. At this time patient denies chest pain or shortness breath. Patient denies nausea vomiting or diarrhea. Patient denies any urinary burning or frequency. Temp 98.3, heart rate 62, respiratory rate 16, blood pressure 140/60 with pulse is 95% on room On 08/30/2023 patient is alert and oriented 3. Patient has been started on hemodialysis. Catheter placed per vascular surgery. Patient currently getting hemodialysis now and likely will repeat cycle tomorrow per nephrology services. Creatinine 9.7 bun 41.2. Current vital signs temp 98.0, heart rate 60, respiratory rate 19, blood pressure 165/77 with pulse ox 94% on room air On 08/31/2023 patient was seen and examined on the medical floor he is alert and oriented 3 in no apparent distress, he is undergoing hemodialysis at this time, he denies any complaints and is feeling better, there is no fever or chills no headache or dizziness no chest pain no shortness of breath no cough no nausea or vomiting no abdominal pain no diarrhea and no urinary symptoms. His last creatinine was 9.7 yesterday, awaiting further recommendation from nephrology. Objective - Vital Signs Vital signs: Vital Signs Temp 97.9 F 08/31/23 07:05 Pulse 57 L 08/31/23 07:05 Resp 19 08/31/23 07:05 BP 142/71 08/31/23 07:05 Pulse Ox 96 08/31/23 07:05 FiO2 Intake & Output 08/30/23 08/31/23 08/31/23 18:59 06:59 18:59 Intake Total 400 600 Output Total 600 800 225 Balance -200 -200 -225 Intake: Intake, IV Titration 600 Amount Sodium Chloride 0.9% 1, 600 000 ml @ 60 mls/hr IV . [id number] [facility] Rx#:[id number] Hemodialysis 400 Output: Urine 600 800 225 Hemodialysis 0 Other: Voiding Method Toilet Urinal # Voids 2 1 # Bowel Movements 1 - Exam In general patient is alert and oriented x 3 in no distress HEENT head normocephalic and atraumatic Neck is supple no JVD no goiter no lymphadenopathy no carotid bruit Chest examination is clear to auscultation no crackles no wheezing Cardiac exam reveals regular heart sounds S1 and S2 no gallops no murmurs Abdomen is soft nontender no organomegaly with normal bowel sounds Extremity exam reveals no edema no cyanosis or clubbing Neurological examination reveals no gross focal deficits - Labs CBC & Chem 7: 08/30/23 05:25 08/30/23 05:25 Labs: Abnormal Lab Results - Last 24 Hours (Table) 08/30/23 08/30/23 08/30/23 Range/Units 12:29 17:33 20:29 POC Glucose (mg/dL) 171 H 212 H 190 H (70-110) mg/dL 08/31/23 Range/Units 07:10 POC Glucose (mg/dL) 150 H (70-110) mg/dL Assessment and Plan Plan: Acute kidney injury on top of chronic kidney disease Elevated liver enzymes Acute mid and lower back pain Underlying history of hypertension Underlying history of hyperlipidemia Underlying history of insulin-dependent diabetes mellitus Underlying history of benign prostatic hypertrophy Underlying history of anemia At this time patient is admitted to medical floor Home medications reviewed and reordered Nephrology consultation requested Will obtain x-ray of the thoracic and lumbar spine Recheck labs in a.m. Will follow closely
[2023-08-31 12:17] LABS: Glucose,Whole Blood 131 mg/dL (70-110)
--- NOTE | 2023-08-31 15:41 | P.PN ---
Subjective Progress Note Date: 08/31/23 Patient is seen in follow-up for acute kidney injury on chronic kidney disease. Patient has chronic kidney disease stage IV secondary to obstructive uropathy and diabetic kidney disease with baseline creatinine near 2.5. Admits to good urine output. Had HD this morning and tolerated well. Vital signs are stable. General: No acute distress. HEENT: Head exam is unremarkable. LUNGS: No audible rhonchi or wheezes. HEART: Rate and Rhythm are regular. ABDOMEN: Nontender. EXTREMITITES: No edema. Objective - Vital Signs Vital signs: Vital Signs Temp 97.9 F 08/31/23 07:05 Pulse 57 L 08/31/23 07:05 Resp 19 08/31/23 07:05 BP 142/71 08/31/23 07:05 Pulse Ox 96 08/31/23 07:05 FiO2 Intake & Output 08/30/23 08/31/23 08/31/23 18:59 06:59 18:59 Intake Total 400 600 Output Total 600 800 225 Balance -200 -200 -225 Intake: Intake, IV Titration 600 Amount Sodium Chloride 0.9% 1, 600 000 ml @ 60 mls/hr IV . [id number] [facility] Rx#:[id number] Hemodialysis 400 Output: Urine 600 800 225 Hemodialysis 0 Other: Voiding Method Toilet Urinal # Voids 2 1 # Bowel Movements 1 - Labs CBC & Chem 7: 08/30/23 05:25 08/30/23 05:25 Labs: Abnormal Lab Results - Last 24 Hours (Table) 08/30/23 08/30/23 08/30/23 Range/Units 12:29 17:33 20:29 POC Glucose (mg/dL) 171 H 212 H 190 H (70-110) mg/dL 08/31/23 Range/Units 07:10 POC Glucose (mg/dL) 150 H (70-110) mg/dL Assessment and Plan Plan: Assessment: 1. Acute kidney injury secondary to ATN vs progression of CKD. Creatinine 9.7 today. Started on hemodialysis August 30, 2023 via permacath. No hydronephrosis noted on kidney ultrasound. 2. Chronic kidney disease stage IV with baseline creatinine near 2.5-2.7 secondary to obstructive uropathy and diabetic kidney disease. 3. Diabetes mellitus. 4. Metabolic acidosis secondary to acute kidney injury and IV fluids. Status post bicarb drip. Now on oral bicarb. 5. Hypertension with chronic kidney disease. Stable. 6. Hypovolemic hyponatremia improved with IV fluids. 7. Hyperphosphatemia secondary to acute kidney injury. Plan: Maintain normal saline. Avoid nephrotoxins. Continue to hold Cozaar and Farxiga. Add PhosLo with meals. He will be maintained on Saturday schedule outpatient. Outpatient dialysis to be set up by manager of case then clear for discharge. Monitor for renal recovery outpatient.
[2023-08-31 17:17] LABS: Glucose,Whole Blood 228 mg/dL (70-110)
[2023-08-31 20:37] LABS: Glucose,Whole Blood 158 mg/dL (70-110)
[2023-09-01 07:01] LABS: Glucose,Whole Blood 152 mg/dL (70-110)
--- NOTE | 2023-09-01 09:34 | P.PN ---
Subjective Progress Note Date: 09/01/23 Bill Gee, is a 68-year-old male who presented to [facility] emergency room with a chief complaint of lower back pain and generalized weakness. He was evaluated in the emergency room vital examination on presentation revealed a temperature of 98.3 pulse 65 respiration 18 blood pressure 135/65 pulse ox 98% on room air Laboratory data revealed a white blood count of 4.8 hemoglobin 12.3 platelet count 111 sodium 132 potassium 4.4 chloride 103 CO2 16 BUN 45 creatinine 8.04 AST 580 ALT 146 Testing in the emergency room revealed KUB revealed nonspecific abdomen, kidney ultrasound revealed no evidence of hydronephrosis, EKG revealed sinus rhythm with first-degree AV block Patient was admitted to medical floor for further evaluation and treatment On 08/28/2023 patient was seen and examined on the medical floor he is alert and oriented 3 in no apparent distress, he is still complaining of lower back pain otherwise he denies any complaints, there is no fever or chills no headache or dizziness no chest pain no shortness of breath no cough no nausea or vomiting no abdominal pain no diarrhea and no urinary symptoms. Creatinine is still significantly elevated at 8.8, nephrology are following, possible need for renal replacement therapy during this admission, will continue to follow closely. On 08/29/2023 patient is alert and oriented 3. Patient remains on bicarb drip awaiting lab results to assess kidney function and whether patient will need renal replacement therapy per nephrology services. At this time patient denies chest pain or shortness breath. Patient denies nausea vomiting or diarrhea. Patient denies any urinary burning or frequency. Temp 98.3, heart rate 62, respiratory rate 16, blood pressure 140/60 with pulse is 95% on room On 08/30/2023 patient is alert and oriented 3. Patient has been started on hemodialysis. Catheter placed per vascular surgery. Patient currently getting hemodialysis now and likely will repeat cycle tomorrow per nephrology services. Creatinine 9.7 bun 41.2. Current vital signs temp 98.0, heart rate 60, respiratory rate 19, blood pressure 165/77 with pulse ox 94% on room air On 08/31/2023 patient was seen and examined on the medical floor he is alert and oriented 3 in no apparent distress, he is undergoing hemodialysis at this time, he denies any complaints and is feeling better, there is no fever or chills no headache or dizziness no chest pain no shortness of breath no cough no nausea or vomiting no abdominal pain no diarrhea and no urinary symptoms. His last creatinine was 9.7 yesterday, awaiting further recommendation from nephrology. On 09/01/2023 patient alert and oriented 3. Lab are currently pending. Current vital signs temp 98.4, heart rate 53, respiratory rate 20, blood pressure 150/62 with pulse ox 96% on room air. Patient will require hemodialysis Saturday case management is following a discharge in the next 24-48 hours. At this time patient denies chest pain or shortness breath. Patient denies nausea vomiting or diarrhea. Patient denies any urinary burning or frequency Objective - Vital Signs Vital signs: Vital Signs Temp 98.4 F 09/01/23 07:01 Pulse 53 L 09/01/23 07:01 Resp 20 09/01/23 07:01 BP 150/62 09/01/23 07:01 Pulse Ox 96 09/01/23 07:01 FiO2 Intake & Output 08/31/23 09/01/23 09/01/23 18:59 06:59 18:59 Intake Total 400 Output Total 225 900 Balance -225 -500 Intake: Hemodialysis 400 Output: Urine 225 Hemodialysis 900 Other: Voiding Method Toilet Toilet Urinal Urinal # Voids 1 1 - Exam In general patient is alert and oriented x 3 in no distress HEENT head normocephalic and atraumatic Neck is supple no JVD no goiter no lymphadenopathy no carotid bruit Chest examination is clear to auscultation no crackles no wheezing Cardiac exam reveals regular heart sounds S1 and S2 no gallops no murmurs Abdomen is soft nontender no organomegaly with normal bowel sounds Extremity exam reveals no edema no cyanosis or clubbing Neurological examination reveals no gross focal deficits - Labs CBC & Chem 7: 08/30/23 05:25 08/30/23 05:25 Labs: Abnormal Lab Results - Last 24 Hours (Table) 08/31/23 08/31/23 08/31/23 Range/Units 12:15 17:16 20:35 POC Glucose (mg/dL) 131 H 228 H 158 H (70-110) mg/dL 09/01/23 Range/Units 06:59 POC Glucose (mg/dL) 152 H (70-110) mg/dL Assessment and Plan Assessment: Acute kidney injury on top of chronic kidney disease Elevated liver enzymes Acute mid and lower back pain Underlying history of hypertension Underlying history of hyperlipidemia Underlying history of insulin-dependent diabetes mellitus Underlying history of benign prostatic hypertrophy Underlying history of anemia At this time patient is admitted to medical floor Home medications reviewed and reordered Nephrology consultation requested Will obtain x-ray of the thoracic and lumbar spine Patient started on hemodialysis Recheck labs in a.m. Will follow closely
[2023-09-01 10:00] LABS: Basophils # (A) 0.05 X 10*3/uL (0.00-0.10); Basophils % (A) 0.9 %; Eosinophils # (A) 0.18 X 10*3/uL (0.04-0.35); Eosinophils % (A) 3.2 %; HCT 30.4 % (39.6-50.0); HGB 10.1 g/dL (13.0-17.0); Lymphocytes # (A) 1.25 X 10*3/uL (0.90-5.00); Lymphocytes % (A) 22.1 %; MCH 29.6 pg (27.0-32.0); MCHC 33.2 g/dL (32.0-37.0); MCV 89.1 FL (80.0-97.0); Mean Platelet Volume 10.9 FL (9.5-12.2); Monocytes # (A) 0.64 X 10*3/uL (0.20-1.00); Monocytes % (A) 11.3 %; NRBC Per 100 WBC 0 X 10*3/uL (0.00-0.01); Neutrophils % (A) 61.8 %; Platelet Count 100 X 10*3/uL (140-440); RBC 3.41 X 10*6/uL (4.40-5.60); RDW 15.4 % (11.5-14.5); WBC 5.66 X 10*3/uL (4.50-10.00)
[2023-09-01 10:07] LABS: ALT 35 U/L (10-49); AST 61 U/L (14-35); Albumin 3.5 g/dL (3.8-4.9); Albumin/Globulin Ratio 1.52 Ratio (1.60-3.17); Alkaline Phosphatase 99 U/L (41-126); BUN/Creat Ratio 5.18 Ratio (12.00-20.00); Blood Urea Nitrogen 31.1 mg/dL (9.0-27.0); Calcium 7.8 mg/dL (8.7-10.3); Carbon Dioxide 24.4 mmol/L (21.6-31.8); Chloride 100 mmol/L (96-109); Globulin 2.3 g/dL (1.6-3.3); Glucose 167 mg/dL (70-110); Potassium 3.4 mmol/L (3.5-5.5); Sodium 136 mmol/L (135-145); Total Bilirubin 0.3 mg/dL (0.3-1.2); Total Protein 5.8 g/dL (6.2-8.2)
[2023-09-01 12:01] LABS: Glucose,Whole Blood 145 mg/dL (70-110)
--- NOTE | 2023-09-01 12:55 | P.PN ---
Subjective Progress Note Date: 09/01/23 Patient is seen in follow-up for acute kidney injury on chronic kidney disease. Patient has chronic kidney disease stage IV secondary to obstructive uropathy and diabetic kidney disease with baseline creatinine near 2.5. Admits to good urine output. No new complaints, wants to go home soon. Vital signs are stable. General: No acute distress. HEENT: Head exam is unremarkable. LUNGS: No audible rhonchi or wheezes. HEART: Rate and Rhythm are regular. ABDOMEN: Nontender. EXTREMITITES: No edema. Objective - Vital Signs Vital signs: Vital Signs Temp 98.4 F 09/01/23 07:01 Pulse 53 L 09/01/23 07:01 Resp 20 09/01/23 07:01 BP 150/62 09/01/23 07:01 Pulse Ox 96 09/01/23 07:01 FiO2 Intake & Output 08/31/23 09/01/23 09/01/23 18:59 06:59 18:59 Intake Total 400 Output Total 225 900 Balance -225 -500 Intake: Hemodialysis 400 Output: Urine 225 Hemodialysis 900 Other: Voiding Method Toilet Toilet Urinal Urinal # Voids 1 1 - Labs CBC & Chem 7: 09/01/23 06:12 09/01/23 06:12 Labs: Abnormal Lab Results - Last 24 Hours (Table) 08/31/23 08/31/23 09/01/23 Range/Units 17:16 20:35 06:12 RBC 3.41 L (4.40-5.60) X 10*6/uL Hgb 10.1 L (13.0-17.0) g/dL Hct 30.4 L (39.6-50.0) % RDW 15.4 H (11.5-14.5) % Plt Count 100 L (140-440) X 10*3/uL Potassium (3.5-5.5) mmol/L BUN (9.0-27.0) mg/dL Creatinine (0.6-1.5) mg/dL Est GFR (CKD-EPI) (>=60) BUN/Creatinine Ratio (12.00-20.00) Ratio Glucose (70-110) mg/dL POC Glucose (mg/dL) 228 H 158 H (70-110) mg/dL Calcium (8.7-10.3) mg/dL AST (14-35) U/L Total Protein (6.2-8.2) g/dL Albumin (3.8-4.9) g/dL Albumin/Globulin Ratio (1.60-3.17) Ratio 09/01/23 09/01/23 09/01/23 Range/Units 06:12 06:59 11:59 RBC (4.40-5.60) X 10*6/uL Hgb (13.0-17.0) g/dL Hct (39.6-50.0) % RDW (11.5-14.5) % Plt Count (140-440) X 10*3/uL Potassium 3.4 L (3.5-5.5) mmol/L BUN 31.1 H (9.0-27.0) mg/dL Creatinine 6.0 H (0.6-1.5) mg/dL Est GFR (CKD-EPI) 10 L (>=60) BUN/Creatinine Ratio 5.18 L (12.00-20.00) Ratio Glucose 167 H (70-110) mg/dL POC Glucose (mg/dL) 152 H 145 H (70-110) mg/dL Calcium 7.8 L (8.7-10.3) mg/dL AST 61 H (14-35) U/L Total Protein 5.8 L (6.2-8.2) g/dL Albumin 3.5 L (3.8-4.9) g/dL Albumin/Globulin Ratio 1.52 L (1.60-3.17) Ratio Assessment and Plan Plan: Assessment: 1. Acute kidney injury secondary to ATN vs progression of CKD. Creatinine 9.7 today. Started on hemodialysis August 30, 2023 via permacath. No hydronephrosis noted on kidney ultrasound. 2. Chronic kidney disease stage IV with baseline creatinine near 2.5-2.7 sec ondary to obstructive uropathy and diabetic kidney disease. 3. Diabetes mellitus. 4. Metabolic acidosis secondary to acute kidney injury and IV fluids. Status post bicarb drip. Now on oral bicarb. 5. Hypertension with chronic kidney disease. Stable. 6. Hypovolemic hyponatremia improved with IV fluids. 7. Hyperphosphatemia secondary to acute kidney injury. Plan: Maintain normal saline. Avoid nephrotoxins. Continue to hold Cozaar and Farxiga. Add PhosLo with meals. He will be maintained on Saturday schedule outpatient. Outpatient dialysis to be set up by case assembler then clear for discharge. Monitor for renal recovery outpatient.
[2023-09-01 17:11] LABS: Glucose,Whole Blood 205 mg/dL (70-110)
[2023-09-01 19:43] LABS: Glucose,Whole Blood 214 mg/dL (70-110)
[2023-09-02 07:07] LABS: Glucose,Whole Blood 158 mg/dL (70-110)
[2023-09-02 10:59] LABS: Basophils # (A) 0.06 X 10*3/uL (0.00-0.10); Basophils % (A) 1.2 %; Eosinophils # (A) 0.16 X 10*3/uL (0.04-0.35); Eosinophils % (A) 3.1 %; HCT 31.6 % (39.6-50.0); HGB 10.3 g/dL (13.0-17.0); Lymphocytes # (A) 1.06 X 10*3/uL (0.90-5.00); Lymphocytes % (A) 20.3 %; MCH 29.9 pg (27.0-32.0); MCHC 32.6 g/dL (32.0-37.0); MCV 91.6 FL (80.0-97.0); Mean Platelet Volume 11.6 FL (9.5-12.2); Monocytes # (A) 0.57 X 10*3/uL (0.20-1.00); Monocytes % (A) 10.9 %; NRBC Per 100 WBC 0 X 10*3/uL (0.00-0.01); Neutrophils # (A) 3.33 X 10*3/uL (1.80-7.70); Neutrophils % (A) 63.9 %; Platelet Count 122 X 10*3/uL (140-440); RBC 3.45 X 10*6/uL (4.40-5.60); RDW 15.6 % (11.5-14.5); WBC 5.21 X 10*3/uL (4.50-10.00)
[2023-09-02 11:10] LABS: ALT 37 U/L (10-49); AST 51 U/L (14-35); Albumin 3.8 g/dL (3.8-4.9); Albumin/Globulin Ratio 1.65 Ratio (1.60-3.17); Alkaline Phosphatase 99 U/L (41-126); Blood Urea Nitrogen 40.2 mg/dL (9.0-27.0); Calcium 8.4 mg/dL (8.7-10.3); Carbon Dioxide 20.8 mmol/L (21.6-31.8); Chloride 103 mmol/L (96-109); Globulin 2.3 g/dL (1.6-3.3); Glucose 184 mg/dL (70-110); Potassium 3.9 mmol/L (3.5-5.5); Sodium 139 mmol/L (135-145); Total Bilirubin 0.3 mg/dL (0.3-1.2); Total Protein 6.1 g/dL (6.2-8.2)
[2023-09-02 12:39] LABS: Glucose,Whole Blood 254 mg/dL (70-110)
--- NOTE | 2023-09-02 13:45 | P.PN ---
Subjective Patient is seen for follow-up for acute kidney injury on top of chronic kidney disease stage IV secondary to obstructive uropathy and diabetic kidney disease. Started hemodialysis this admission for worsening renal function with serum creatinine at 9.7 mg/dL. Previous creatinine 2.7 on 03/14/2023. Patient reports good urine output. Patient will be maintained on a Saturday schedule for dialysis. Awaiting outpatient chair time. Objective - Vital Signs Vital signs: Vital Signs Temp 98.4 F 09/02/23 08:00 Pulse 55 L 09/02/23 08:00 Resp 18 09/02/23 08:00 BP 126/62 09/02/23 08:00 Pulse Ox 96 09/02/23 08:00 FiO2 Intake & Output 09/01/23 09/02/23 09/02/23 18:59 06:59 18:59 Other: Voiding Method Toilet # Bowel Movements 1 - Exam Patient is awake, comfortable, no acute distress Examination of the heart S1 and S2 Examination of the lungs bilateral breath sounds are heard abdomen is soft nontender Examination of lower extremities shows no significant edema [employer] exam grossly intact - Labs CBC & Chem 7: 09/02/23 07:21 09/02/23 07:21 Labs: Abnormal Lab Results - Last 24 Hours (Table) 09/01/23 09/01/23 09/02/23 Range/Units 17:10 19:42 06:51 RBC (4.40-5.60) X 10*6/uL Hgb (13.0-17.0) g/dL Hct (39.6-50.0) % RDW (11.5-14.5) % Plt Count (140-440) X 10*3/uL Carbon Dioxide (21.6-31.8) mmol/L Anion Gap (4.00-12.00) mmol/L BUN (9.0-27.0) mg/dL Creatinine (0.6-1.5) mg/dL Est GFR (CKD-EPI) (>=60) BUN/Creatinine Ratio (12.00-20.00) Ratio Glucose (70-110) mg/dL POC Glucose (mg/dL) 205 H 214 H 158 H (70-110) mg/dL Calcium (8.7-10.3) mg/dL AST (14-35) U/L Total Protein (6.2-8.2) g/dL 09/02/23 09/02/23 09/02/23 Range/Units 07:21 07:21 12:29 RBC 3.45 L (4.40-5.60) X 10*6/uL Hgb 10.3 L (13.0-17.0) g/dL Hct 31.6 L (39.6-50.0) % RDW 15.6 H (11.5-14.5) % Plt Count 122 L (140-440) X 10*3/uL Carbon Dioxide 20.8 L (21.6-31.8) mmol/L Anion Gap 15.20 H (4.00-12.00) mmol/L BUN 40.2 H (9.0-27.0) mg/dL Creatinine 6.7 H (0.6-1.5) mg/dL Est GFR (CKD-EPI) 8 L (>=60) BUN/Creatinine Ratio 6.00 L (12.00-20.00) Ratio Glucose 184 H (70-110) mg/dL POC Glucose (mg/dL) 254 H (70-110) mg/dL Calcium 8.4 L (8.7-10.3) mg/dL AST 51 H (14-35) U/L Total Protein 6.1 L (6.2-8.2) g/dL Assessment and Plan Assessment: 1. Acute kidney injury secondary to ATN vs progression of CKD. Creatinine 9.7 today. Started on hemodialysis August 30, 2023 via permacath. No hydronephrosis noted on kidney ultrasound. 2. Chronic kidney disease stage IV with baseline creatinine near 2.5-2.7 secondary to obstructive uropathy and diabetic kidney disease. 3. Diabetes mellitus. 4. Metabolic acidosis secondary to acute kidney injury and IV fluids. Status post bicarb drip. Now on oral bicarb. 5. Hypertension with chronic kidney disease. Stable. 6. Hypovolemic hyponatremia improved with IV fluids. 7. Hyperphosphatemia secondary to acute kidney injury. Plan: DC IV fluids Continue with oral sodium bicarb Hemodialysis in a.m. Awaiting outpatient chair time
[2023-09-02 16:52] LABS: Glucose,Whole Blood 187 mg/dL (70-110)
--- NOTE | 2023-09-02 17:52 | P.PN ---
Subjective Progress Note Date: 09/02/23 Bill Gee, is a 68-year-old male who presented to [facility] emergency room with a chief complaint of lower back pain and generalized weakness. He was evaluated in the emergency room vital examination on presentation revealed a temperature of 98.3 pulse 65 respiration 18 blood pressure 135/65 pulse ox 98% on room air Laboratory data revealed a white blood count of 4.8 hemoglobin 12.3 platelet count 111 sodium 132 potassium 4.4 chloride 103 CO2 16 BUN 45 creatinine 8.04 AST 580 ALT 146 Testing in the emergency room revealed KUB revealed nonspecific abdomen, kidney ultrasound revealed no evidence of hydronephrosis, EKG revealed sinus rhythm with first-degree AV block Patient was admitted to medical floor for further evaluation and treatment On 08/28/2023 patient was seen and examined on the medical floor he is alert and oriented 3 in no apparent distress, he is still complaining of lower back pain otherwise he denies any complaints, there is no fever or chills no headache or dizziness no chest pain no shortness of breath no cough no nausea or vomiting no abdominal pain no diarrhea and no urinary symptoms. Creatinine is still significantly elevated at 8.8, nephrology are following, possible need for renal replacement therapy during this admission, will continue to follow closely. On 08/29/2023 patient is alert and oriented 3. Patient remains on bicarb drip awaiting lab results to assess kidney function and whether patient will need renal replacement therapy per nephrology services. At this time patient denies chest pain or shortness breath. Patient denies nausea vomiting or diarrhea. Patient denies any urinary burning or frequency. Temp 98.3, heart rate 62, respiratory rate 16, blood pressure 140/60 with pulse is 95% on room On 08/30/2023 patient is alert and oriented 3. Patient has been started on hemodialysis. Catheter placed per vascular surgery. Patient currently getting hemodialysis now and likely will repeat cycle tomorrow per nephrology services. Creatinine 9.7 bun 41.2. Current vital signs temp 98.0, heart rate 60, respiratory rate 19, blood pressure 165/77 with pulse ox 94% on room air On 08/31/2023 patient was seen and examined on the medical floor he is alert and oriented 3 in no apparent distress, he is undergoing hemodialysis at this time, he denies any complaints and is feeling better, there is no fever or chills no headache or dizziness no chest pain no shortness of breath no cough no nausea or vomiting no abdominal pain no diarrhea and no urinary symptoms. His last creatinine was 9.7 yesterday, awaiting further recommendation from nephrology. On 09/01/2023 patient alert and oriented 3. Lab are currently pending. Current vital signs temp 98.4, heart rate 53, respiratory rate 20, blood pressure 150/62 with pulse ox 96% on room air. Patient will require hemodialysis Saturday case management is following a discharge in the next 24-48 hours. At this time patient denies chest pain or shortness breath. Patient denies nausea vomiting or diarrhea. Patient denies any urinary burning or frequency On 09/02/2023 patient was seen and examined on the medical floor he is alert and oriented 3 in no apparent distress there is no fever or chills no headache or dizziness no chest pain no shortness of breath no cough no nausea or vomiting no abdominal pain no diarrhea and no urinary symptoms at this time patient is stable. Awaiting clearance by nephrology and arrangement for outpatient hemodialysis. Objective - Vital Signs Vital signs: Vital Signs Temp 98 F 09/02/23 13:41 Pulse 50 L 09/02/23 13:41 Resp 17 09/02/23 13:41 BP 158/81 09/02/23 13:41 Pulse Ox 97 09/02/23 13:41 FiO2 Intake & Output 09/01/23 09/02/23 09/02/23 18:59 06:59 18:59 Intake Total 240 Balance 240 Intake: Oral 240 Other: Voiding Method Toilet # Bowel Movements 1 - Exam In general patient is alert and oriented x 3 in no distress HEENT head normocephalic and atraumatic Neck is supple no JVD no goiter no lymphadenopathy no carotid bruit Chest examination is clear to auscultation no crackles no wheezing Cardiac exam reveals regular heart sounds S1 and S2 no gallops no murmurs Abdomen is soft nontender no organomegaly with normal bowel sounds Extremity exam reveals no edema no cyanosis or clubbing Neurological examination reveals no gross focal deficits - Labs CBC & Chem 7: 09/02/23 07:21 09/02/23 07:21 Labs: Abnormal Lab Results - Last 24 Hours (Table) 09/01/23 09/01/23 09/02/23 Range/Units 17:10 19:42 06:51 RBC (4.40-5.60) X 10*6/uL Hgb (13.0-17.0) g/dL Hct (39.6-50.0) % RDW (11.5-14.5) % Plt Count (140-440) X 10*3/uL Carbon Dioxide (21.6-31.8) mmol/L Anion Gap (4.00-12.00) mmol/L BUN (9.0-27.0) mg/dL Creatinine (0.6-1.5) mg/dL Est GFR (CKD-EPI) (>=60) BUN/Creatinine Ratio (12.00-20.00) Ratio Glucose (70-110) mg/dL POC Glucose (mg/dL) 205 H 214 H 158 H (70-110) mg/dL Calcium (8.7-10.3) mg/dL AST (14-35) U/L Total Protein (6.2-8.2) g/dL 09/02/23 09/02/23 09/02/23 Range/Units 07:21 07:21 12:29 RBC 3.45 L (4.40-5.60) X 10*6/uL Hgb 10.3 L (13.0-17.0) g/dL Hct 31.6 L (39.6-50.0) % RDW 15.6 H (11.5-14.5) % Plt Count 122 L (140-440) X 10*3/uL Carbon Dioxide 20.8 L (21.6-31.8) mmol/L Anion Gap 15.20 H (4.00-12.00) mmol/L BUN 40.2 H (9.0-27.0) mg/dL Creatinine 6.7 H (0.6-1.5) mg/dL Est GFR (CKD-EPI) 8 L (>=60) BUN/Creatinine Ratio 6.00 L (12.00-20.00) Ratio Glucose 184 H (70-110) mg/dL POC Glucose (mg/dL) 254 H (70-110) mg/dL Calcium 8.4 L (8.7-10.3) mg/dL AST 51 H (14-35) U/L Total Protein 6.1 L (6.2-8.2) g/dL Assessment and Plan Plan: Acute kidney injury on top of chronic kidney disease Elevated liver enzymes Acute mid and lower back pain Underlying history of hypertension Underlying history of hyperlipidemia Underlying history of insulin-dependent diabetes mellitus Underlying history of benign prostatic hypertrophy Underlying history of anemia At this time patient is admitted to medical floor Home medications reviewed and reordered Nephrology consultation requested Will obtain x-ray of the thoracic and lumbar spine Recheck labs in a.m. Will follow closely
[2023-09-02 19:35] LABS: Glucose,Whole Blood 264 mg/dL (70-110)
[2023-09-03 07:02] LABS: Glucose,Whole Blood 205 mg/dL (70-110)
[2023-09-03 08:44] LABS: Basophils # (A) 0.04 X 10*3/uL (0.00-0.10); Basophils % (A) 0.8 %; Eosinophils # (A) 0.14 X 10*3/uL (0.04-0.35); Eosinophils % (A) 2.7 %; HCT 31.4 % (39.6-50.0); HGB 10.3 g/dL (13.0-17.0); Lymphocytes # (A) 1.07 X 10*3/uL (0.90-5.00); Lymphocytes % (A) 20.7 %; MCH 29.8 pg (27.0-32.0); MCHC 32.8 g/dL (32.0-37.0); MCV 90.8 FL (80.0-97.0); Mean Platelet Volume 11.6 FL (9.5-12.2); Monocytes # (A) 0.64 X 10*3/uL (0.20-1.00); Monocytes % (A) 12.4 %; NRBC Per 100 WBC 0 X 10*3/uL (0.00-0.01); Neutrophils # (A) 3.24 X 10*3/uL (1.80-7.70); Neutrophils % (A) 62.6 %; Platelet Count 146 X 10*3/uL (140-440); RBC 3.46 X 10*6/uL (4.40-5.60); RDW 15.5 % (11.5-14.5); WBC 5.17 X 10*3/uL (4.50-10.00)
[2023-09-03 08:49] LABS: ALT 31 U/L (10-49); AST 41 U/L (14-35); Albumin 3.7 g/dL (3.8-4.9); Albumin/Globulin Ratio 1.61 Ratio (1.60-3.17); Alkaline Phosphatase 104 U/L (41-126); BUN/Creat Ratio 6.84 Ratio (12.00-20.00); Blood Urea Nitrogen 47.9 mg/dL (9.0-27.0); Calcium 8.5 mg/dL (8.7-10.3); Carbon Dioxide 19.9 mmol/L (21.6-31.8); Chloride 104 mmol/L (96-109); Globulin 2.3 g/dL (1.6-3.3); Glucose 209 mg/dL (70-110); Sodium 138 mmol/L (135-145); Total Bilirubin 0.3 mg/dL (0.3-1.2)
[2023-09-03 09:15] VITALS: BMI 32.5
--- NOTE | 2023-09-03 09:37 | P.DS ---
Providers Date of admission: 08/27/23 01:09 Expected date of discharge: 09/03/23 Attending physician: Carina Freeman Consults: 08/27/23 01:09 Consult Physician Routine Consulting Provider: Lisha Gonzalez Consult Reason/Comments: Acute kidney failure Do you want consulting provider notified?: Yes 08/28/23 12:37 Consult Physician Routine Consulting Provider: Asif Cronin Consult Reason/Comments: Permanent dialysis catheter placement Do you want consulting provider notified?: Yes Primary care physician: Carina Freeman [facility] Course: Discharge diagnosis Acute kidney injury on top of chronic kidney disease Elevated liver enzymes Acute mid and lower back pain Underlying history of hypertension Underlying history of hyperlipidemia Underlying history of insulin-dependent diabetes mellitus Underlying history of benign prostatic hypertrophy Underlying history of anemia Hospital course Bill Gee, is a 68-year-old male who presented to [facility] emergency room with a chief complaint of lower back pain and generalized weakness. He was evaluated in the emergency room vital examination on presentation revealed a temperature of 98.3 pulse 65 respiration 18 blood pressure 135/65 pulse ox 98% on room air Laboratory data revealed a white blood count of 4.8 hemoglobin 12.3 platelet count 111 sodium 132 potassium 4.4 chloride 103 CO2 16 BUN 45 creatinine 8.04 AST 580 ALT 146 Testing in the emergency room revealed KUB revealed nonspecific abdomen, kidney ultrasound revealed no evidence of hydronephrosis, EKG revealed sinus rhythm with first-degree AV block Patient was admitted to medical floor for further evaluation and treatment On 08/28/2023 patient was seen and examined on the medical floor he is alert and oriented 3 in no apparent distress, he is still complaining of lower back pain otherwise he denies any complaints, there is no fever or chills no headache or dizziness no chest pain no shortness of breath no cough no nausea or vomiting no abdominal pain no diarrhea and no urinary symptoms. Creatinine is still significantly elevated at 8.8, nephrology are following, possible need for renal replacement therapy during this admission, will continue to follow closely. On 08/29/2023 patient is alert and oriented 3. Patient remains on bicarb drip awaiting lab results to assess kidney function and whether patient will need renal replacement therapy per nephrology services. At this time patient denies chest pain or shortness breath. Patient denies nausea vomiting or diarrhea. Patient denies any urinary burning or frequency. Temp 98.3, heart rate 62, respiratory rate 16, blood pressure 140/60 with pulse is 95% on room On 08/30/2023 patient is alert and oriented 3. Patient has been started on hemodialysis. Catheter placed per vascular surgery. Patient currently getting hemodialysis now and likely will repeat cycle tomorrow per nephrology services. Creatinine 9.7 bun 41.2. Current vital signs temp 98.0, heart rate 60, respiratory rate 19, blood pressure 165/77 with pulse ox 94% on room air On 08/31/2023 patient was seen and examined on the medical floor he is alert and oriented 3 in no apparent distress, he is undergoing hemodialysis at this time, he denies any complaints and is feeling better, there is no fever or chills no headache or dizziness no chest pain no shortness of breath no cough no nausea or vomiting no abdominal pain no diarrhea and no urinary symptoms. His last creatinine was 9.7 yesterday, awaiting further recommendation from nephrology. On 09/01/2023 patient alert and oriented 3. Lab are currently pending. Current vital signs temp 98.4, heart rate 53, respiratory rate 20, blood pressure 150/62 with pulse ox 96% on room air. Patient will require hemodialysis Saturday case management is following a discharge in the next 24-48 hours. At this time patient denies chest pain or shortness breath. Patient denies nausea vomiting or diarrhea. Patient denies any urinary burning or frequency On 09/02/2023 patient was seen and examined on the medical floor he is alert and oriented 3 in no apparent distress there is no fever or chills no headache or dizziness no chest pain no shortness of breath no cough no nausea or vomiting no abdominal pain no diarrhea and no urinary symptoms at this time patient is stable. Awaiting clearance by nephrology and arrangement for outpatient hemodialysis. On 09/03/2023 patient is alert and oriented 3. Patient eager to be DC'd home. Discussed with case management outpatient hemodialysis has been arranged for Saturday. Discussed with nursing staff the patient to receive hemodialysis prior to discharge today. Patient denies chest pain or shortness of breath. Patient denies nausea vomiting or diarrhea. Patient denies any urinary burning or frequency patient to follow-up with PCP consulting providers for further management Patient Condition at Discharge: Stable Plan - Discharge Summary Discharge Rx Participant: No New Discharge Prescriptions: New Hydrocortisone Pr Cream [Proctosol-Hc 2.5%] 1 applic RECTAL BID each Calcium Acetate [PhosLo] 667 mg PO BID-W/MEALS 30 Days #60 tab Continue Metoprolol Tartrate [Lopressor] 50 mg PO BID Insulin Glargine,Hum.rec.anlog [Lantus Solostar Pen] 60 units SQ HS Tamsulosin [Flomax] 0.4 mg PO PC-SUPPER 30 Days #30 cap Ferrous Sulfate [Iron (65 MG Elemental)] 325 mg PO DAILY Sodium Bicarbonate Tab 650 mg PO DAILY Ergocalciferol (Vitamin D2) [Drisdol (50,000 Iu)] 1,250 mcg PO Q7D Discontinued Omeprazole 20 mg PO BID Dapagliflozin Propanediol [Farxiga] 10 mg PO DAILY Rosuvastatin Calcium 40 mg PO HS amLODIPine [Norvasc] 10 mg PO DAILY Magnesium Oxide [Mag-Ox] 400 mg PO BID Losartan [Cozaar] 25 mg PO DAILY Discharge Medication List Metoprolol Tartrate [Lopressor] 50 mg PO BID 12/10/15 [History] Tamsulosin [Flomax] 0.4 mg PO PC-SUPPER 30 Days #30 cap 03/19/22 [Rx] Ergocalciferol (Vitamin D2) [Drisdol (50,000 Iu)] 1,250 mcg PO Q7D 08/27/23 [History] Ferrous Sulfate [Iron (65 MG Elemental)] 325 mg PO DAILY 08/27/23 [History] Insulin Glargine,Hum.rec.anlog [Lantus Solostar Pen] 60 units SQ HS 08/27/23 [History] Sodium Bicarbonate Tab 650 mg PO DAILY 08/27/23 [History] Calcium Acetate [PhosLo] 667 mg PO BID-W/MEALS 30 Days #60 tab 09/03/23 [Rx] Hydrocortisone Pr Cream [Proctosol-Hc 2.5%] 1 applic RECTAL BID each 09/03/23 [Rx] Follow up Appointment(s)/Referral(s): [facility] [NON-STAFF] - 09/03/23 6:45 am (Saturday - - S at 6:45AM) None,Stated [REFERRING] - 1-2 days Discharge/Stand Alone Forms: AA Meetings [place] [facility], Who Do I Call?, Community Resources, Outpatient Counseling, Inp Substance Abuse Facilities
[2023-09-03 12:07] LABS: Glucose,Whole Blood 148 mg/dL (70-110)
[2023-09-03 16:16] VITALS: BP 180/82; PULSE 45; RESP 21; TEMP 98
--- NOTE | 2023-09-03 18:23 | P.PN ---
Subjective Patient is seen for follow-up for acute kidney injury on top of chronic kidney disease stage IV secondary to obstructive uropathy and diabetic kidney disease. Started hemodialysis this admission for worsening renal function with serum creatinine at 9.7 mg/dL. Previous creatinine 2.7 on 03/14/2023. Patient reports good urine output. Patient will be maintained on a Saturday schedule for dialysis. Scheduled for hemodialysis today. Objective - Vital Signs Vital signs: Vital Signs Temp 98.0 F 09/03/23 16:10 Pulse 45 L 09/03/23 16:10 Resp 21 09/03/23 16:10 BP 180/82 09/03/23 16:10 Pulse Ox 97 09/03/23 12:44 FiO2 Intake & Output 09/02/23 09/03/23 09/03/23 18:59 06:59 18:59 Intake Total 1080 480 400 Output Total 1800 Balance 1080 480 -1400 Weight 86.183 kg Intake: Oral 1080 480 Hemodialysis 400 Output: Hemodialysis 1800 Other: Voiding Method Toilet # Voids 2 - Exam Patient is awake, comfortable, no acute distress Examination of the heart S1 and S2 Examination of the lungs bilateral breath sounds are heard abdomen is soft nontender Examination of lower extremities shows no significant edema CERTIFIED NURSE exam grossly intact - Labs CBC & Chem 7: 09/03/23 04:37 09/03/23 04:37 Labs: Abnormal Lab Results - Last 24 Hours (Table) 09/02/23 09/03/23 09/03/23 Range/Units 19:34 04:37 04:37 RBC 3.46 L (4.40-5.60) X 10*6/uL Hgb 10.3 L (13.0-17.0) g/dL Hct 31.4 L (39.6-50.0) % RDW 15.5 H (11.5-14.5) % Carbon Dioxide 19.9 L (21.6-31.8) mmol/L Anion Gap 14.10 H (4.00-12.00) mmol/L BUN 47.9 H (9.0-27.0) mg/dL Creatinine 7.0 H (0.6-1.5) mg/dL Est GFR (CKD-EPI) 8 L (>=60) BUN/Creatinine Ratio 6.84 L (12.00-20.00) Ratio Glucose 209 H (70-110) mg/dL POC Glucose (mg/dL) 264 H (70-110) mg/dL Calcium 8.5 L (8.7-10.3) mg/dL AST 41 H (14-35) U/L Total Protein 6.0 L (6.2-8.2) g/dL Albumin 3.7 L (3.8-4.9) g/dL 09/03/23 09/03/23 Range/Units 07:01 12:05 RBC (4.40-5.60) X 10*6/uL Hgb (13.0-17.0) g/dL Hct (39.6-50.0) % RDW (11.5-14.5) % Carbon Dioxide (21.6-31.8) mmol/L Anion Gap (4.00-12.00) mmol/L BUN (9.0-27.0) mg/dL Creatinine (0.6-1.5) mg/dL Est GFR (CKD-EPI) (>=60) BUN/Creatinine Ratio (12.00-20.00) Ratio Glucose (70-110) mg/dL POC Glucose (mg/dL) 205 H 148 H (70-110) mg/dL Calcium (8.7-10.3) mg/dL AST (14-35) U/L Total Protein (6.2-8.2) g/dL Albumin (3.8-4.9) g/dL Assessment and Plan Assessment: 1. Acute kidney injury secondary to ATN vs progression of CKD. Creatinine was at 9.7 . Started on hemodialysis August 30, 2023 via permacath. No hydronephrosis noted on kidney ultrasound. 2. Chronic kidney disease stage IV with baseline creatinine near 2.5-2.7 secondary to obstructive uropathy and diabetic kidney disease. 3. Diabetes mellitus. 4. Metabolic acidosis secondary to acute kidney injury and IV fluids. Status post bicarb drip. Now on oral bicarb. 5. Hypertension with chronic kidney disease. Stable. 6. Hypovolemic hyponatremia improved with IV fluids. 7. Hyperphosphatemia secondary to acute kidney injury. Plan: Hemodialysis today. Patient can be discharged postdialysis.
== END 2023-09-03 16:10 | disposition home health service (06) | DRG 674 ==
LOC: EC 20:30 → 5NMEDONC 08-27 01:09
PROVIDERS: ADMIT Internal Medicine; ATTEND Internal Medicine
PROC: 0JH63XZ Insertion of Tunneled Vascular Access Device into Chest Subcutaneous Tissue and Fascia, Percutaneous Approach (ICD-10-PCS; principal; 2023-08-30)
PROC: 02HV33Z Insertion of Infusion Device into Superior Vena Cava, Percutaneous Approach (ICD-10-PCS; 2023-08-30)
PROC: 5A1D70Z Performance of Urinary Filtration, Intermittent, Less than 6 Hours Per Day (ICD-10-PCS; 2023-08-30)
DX: N17.0 Acute kidney failure with tubular necrosis (principal); E87.1 Hypo-osmolality and hyponatremia; E87.20 Acidosis, unspecified; N13.8 Other obstructive and reflux uropathy; E11.22 Type 2 diabetes mellitus with diabetic chronic kidney disease; D63.1 Anemia in chronic kidney disease; E78.5 Hyperlipidemia, unspecified; E83.39 Other disorders of phosphorus metabolism; N18.4 Chronic kidney disease, stage 4 (severe); R74.8 Abnormal levels of other serum enzymes; I12.9 Hypertensive chronic kidney disease with stage 1 through stage 4 chronic kidney disease, or unspecified chronic kidney disease; E86.1 Hypovolemia; N40.1 Benign prostatic hyperplasia with lower urinary tract symptoms; I25.10 Atherosclerotic heart disease of native coronary artery without angina pectoris; Z95.5 Presence of coronary angioplasty implant and graft; I25.2 Old myocardial infarction; Z79.4 Long term (current) use of insulin; Z79.84 Long term (current) use of oral hypoglycemic drugs; Z79.899 Other long term (current) drug therapy; Z87.891 Personal history of nicotine dependence
CPT/HCPCS: 36415; 36558; 72070; 72100; 74018; 76770; 76937; 77001; 80053; 80076; 81001; 82570; 83605; 83735; 83880; 83930; 83935; 84100; 84133; 84300; 84484; 85025; 85610; 85730; 86706; 87340; 87636; 90935; 93005; 96361; 96374; 99285

== ENCOUNTER → 2024-01-10 | Outpatient (CLI) | payer MEDICARE ==
[2024-01-10 20:42] LABS: C-Peptide 7.98 ng/mL (0.81-3.85)
== END | disposition home or self-care (01) ==
LOC: LABWHC1 10:31
PROVIDERS: ATTEND Internal Medicine
DX: E11.65 Type 2 diabetes mellitus with hyperglycemia (principal); Z79.4 Long term (current) use of insulin
CPT/HCPCS: 36415; 82947; 84681

== ENCOUNTER 2024-02-20 07:30 | Day surgery (SDC) | payer MEDICARE ==
[2024-02-20] MEDS ORDERED: SODIUM CHLORIDE 0.9% 1,000 ML BAG ONE (10:04)
[2024-02-20] MEDS ORDERED: fentaNYL (PF) 50 MCG/ML 2 ML AMP ONE ×2 (10:17→11:13)
[2024-02-20] MEDS ORDERED: ROPIVACAINE 5 MG/ML 30 ML VIAL ONE ×2 (10:17→11:13)
[2024-02-20] MEDS ORDERED: MIDAZOLAM 2 MG/2 ML VIAL ONE ×2 (10:17→11:13)
[2024-02-20] MEDS ORDERED: LIDOCAINE 1% INJ 10MG/ML (20 ML MDV) ONE ×2 (10:18→11:13)
[2024-02-20] MEDS ORDERED: ONDANSETRON 4 MG/2 ML VIAL ONE (10:53)
[2024-02-20] MEDS ORDERED: PROPOFOL 10 MG/ML 20 ML VIAL IV ONE (11:13)
[2024-02-20] MEDS ORDERED: KETAMINE HCL IN 0.9 % NACL 50 MG/5 ML SYRINGE ONE (11:13)
[2024-02-20] MEDS ORDERED: HEPARIN SODIUM,PORCINE 5,000 UNIT/ML 1 ML VIAL ONE (11:13)
[2024-02-20] MEDS ORDERED: PHENYLEPHRINE-0.9% NACL SYG 1,000 MCG/10 ML SYRINGE ONE (11:13)
[2024-02-20] MEDS ORDERED: SODIUM CHLORIDE 0.9% 500 ML BAG ONE ×2 (11:20)
[2024-02-20] MEDS ORDERED: ceFAZolin 1,000 MG VIAL ONE (11:20)
== END 2024-02-20 13:35 | disposition home or self-care (01) ==
LOC: OR 07:30
PROVIDERS: ATTEND Surgery
DX: N18.6 End stage renal disease
CPT/HCPCS: 64415; 80048; 84132; 85027

== ENCOUNTER 2024-04-27 08:04 | Observation (INO) | payer MEDICARE ==
[2024-04-27] MEDS ORDERED: NALOXONE 0.4 MG/ML 1 ML VIAL IV PRN (08:31)
--- NOTE | 2024-04-27 08:43 | ED ---
General Adult HPI - General Chief complaint: Recheck/Abnormal Lab/Rx Stated complaint: Port Change Time Seen by Provider: 04/27/24 08:10 Source: patient, RN notes reviewed, old records reviewed Mode of arrival: ambulatory Limitations: no limitations - History of Present Illness Initial comments: 68-year-old male with end-stage renal disease presents with occluded right chest wall permacath. Patient attempted to have dialysis on Saturday but they were unable to complete dialysis secondary to occluded catheter. Patient was scheduled to have this catheter exchanged on Saturday but at the time stated that the catheter was working fine. Patient denies dyspnea. Denies fever. Denies other complaint. - Related Data Home Medications Medication Instructions Recorded Confirmed Metoprolol Tartrate [Lopressor] 50 mg PO BID 12/10/15 08/27/23 Ergocalciferol (Vitamin D2) 1,250 mcg PO Q7D 08/27/23 08/27/23 [Drisdol (50,000 Iu)] Ferrous Sulfate [Iron (65 MG 325 mg PO DAILY 08/27/23 08/27/23 Elemental)] Insulin Glargine,Hum.rec.anlog 60 units SQ HS 08/27/23 08/27/23 [Lantus Solostar Pen] Sodium Bicarbonate Tab 650 mg PO DAILY 08/27/23 08/27/23 Previous Rx's Medication Instructions Recorded Tamsulosin [Flomax] 0.4 mg PO PC-SUPPER 30 Days #30 cap 03/19/22 Calcium Acetate [PhosLo] 667 mg PO BID-W/MEALS 30 Days #60 09/03/23 tab Hydrocortisone Pr Cream 1 applic RECTAL BID each 09/03/23 [Proctosol-Hc 2.5%] Allergies Allergy/AdvReac Type Severity Reaction Status Date / Time Latex, Natural Rubber Allergy Rash/Hives Verified 04/27/24 08:09 codeine AdvReac Rapid Verified 04/27/24 08:09 Heart Rate meperidine HCl [From Demerol] AdvReac Rapid Verified 04/27/24 08:09 Heart Rate Review of Systems ROS Statement: Those systems with pertinent positive or pertinent negative responses have been documented in the HPI. ROS Other: All systems not noted in ROS Statement are negative. Past Medical History Past Medical History: Diabetes Mellitus, Hyperlipidemia, Myocardial Infarction ([place]) Additional Past Medical History / Comment(s): kidney failure - stage 4 Last Myocardial Infarction Date:: 1998 History of Any Multi-Drug Resistant Organisms: None Reported Past Surgical History: Appendectomy, Heart Catheterization With Stent Additional Past Surgical History / Comment(s): Heart cath with stent 20 years ago, stent 12/09/2018 Past Anesthesia/Blood Transfusion Reactions: No Reported Reaction Date of Last Stent Placement:: 1998 Past Psychological History: No Psychological Hx Reported Smoking Status: Former smoker Past Alcohol Use History: Daily, Heavy Past Drug Use History: None Reported General Exam Limitations: no limitations General appearance: alert, in no apparent distress Head exam: Present: atraumatic, normocephalic Eye exam: Present: normal appearance, PERRL ENT exam: Present: normal exam Neck exam: Present: normal inspection. Absent: tenderness, meningismus Respiratory exam: Present: normal lung sounds bilaterally. Absent: respiratory distress, wheezes Cardiovascular Exam: Present: regular rate, normal rhythm GI/Abdominal exam: Present: soft. Absent: distended, tenderness Extremities exam: Present: normal inspection, normal capillary refill Neurological exam: Present: alert, oriented X3 Psychiatric exam: Present: normal affect, normal mood Course Vital Signs 04/27/24 08:06 Temperature 98.4 F Pulse Rate 99 Respiratory 20 Rate Blood Pressure 155/84 O2 Sat by Pulse 97 Oximetry Medical Decision Making - Medical Decision Making Was pt. sent in by a medical professional or institution ([facility], [facility], urgent care, hospital, or retirement...) When possible be specific @ -No Did you speak to anyone other than the patient for history (EMS, parent, family, police, friend...)? What history was obtained from this source @ -No Did you review nursing and triage notes (agree or disagree)? Why? @ -I reviewed and agree with nursing and triage notes Were old charts reviewed (outside hosp., previous admission, EMS record, old EKG, old radiological studies, urgent care reports/EKG's, retirement records)? Report findings @ -No old charts were reviewed Differential Diagnosis: Occluded permacath EKG interpreted by me (3pts min.). @ -As above X-rays interpreted by me (1pt min.). @ -None done CT interpreted by me (1pt min.). @ -None done U/S interpreted by me (1pt. min.). @ -None done What testing was considered but not performed or refused? (CT, X-rays, U/S, labs)? Why? @ -None What meds were considered but not given or refused? Why? @ -None Did you discuss the management of the patient with other professionals (professionals i.e. , PA, [employer], lab, RT, psych nurse, social science instructor, trial lawyer, teacher, aeronautical engineering officer, watch caser)? Give summary @ -Primary care Dr. Freeman has been paged. Was smoking cessation discussed for >3mins.? @ -No Was critical care preformed (if so, how long)? @ -No Were there social determinants of health that impacted care today? How? (Homelessness, low income, unemployed, alcoholism, drug addiction, transportation, low edu. Level, literacy, decrease access to med. care, correction, rehab)? @ -No Was there de-escalation of care discussed even if they declined (Discuss DNR or withdrawal of care, Hospice)? DNR status @ -No What co-morbidities impacted this encounter? (DM, HTN, Smoking, COPD, CAD, Cancer, CVA, ARF, Chemo, Hep., AIDS, mental health diagnosis, sleep apnea, morbid obesity)? @ -[End-stage renal disease Was patient admitted / discharged? Hospital course, mention meds given and route, prescriptions, significant lab abnormalities, going to OR and other pertinent info. @ -Case discussed with Elsa rincon for vascular surgery, patient will be admitted to internal medicine with vascular surgery and nephrology on consult. Laboratory studies have been ordered, results pending. Undiagnosed new problem with uncertain prognosis? @ -No Drug Therapy requiring intensive monitoring for toxicity (Heparin, Nitro, Insulin, Cardizem)? @ -No Were any procedures done? @ -No Diagnosis/symptom? @ -End-stage renal disease, nonfunctioning permacath Acute, or Chronic, or Acute on Chronic? @Acute Uncomplicated (without systemic symptoms) or Complicated (systemic symptoms)? @ -Default Side effects of treatment? @ -No Exacerbation, Progression, or Severe Exacerbation? @ -No Poses a threat to life or bodily function? How? (Chest pain, [place], [place], pneumonia, PE, COPD, DKA, ARF, appy, cholecystitis, CVA, Diverticulitis, Homicidal, Suicidal, threat to staff... and all critical care pts) @ -Low risk at this time Disposition Clinical Impression: Dialysis catheter clot or failure Disposition: ADMITTED IP TO THIS HOSP Condition: Stable Is patient prescribed a controlled substance at d/c from ED?: No Referrals: Carina Freeman MD [Primary Care Provider] - 1-2 days Time of Disposition: 08:43
[2024-04-27 09:02] LABS: Basophils % (A) 1 %; Eosinophils # (A) 0.2 k/uL (0-0.7); Eosinophils % (A) 3 %; HCT 35.5 % (39.0-53.0); Lymphocytes # (A) 1.4 k/uL (1.0-4.8); Lymphocytes % (A) 21 %; MCH 31.3 pg (25.0-35.0); MCHC 33.9 g/dL (31.0-37.0); MCV 92.5 fL (80.0-100.0); Monocytes # (A) 0.4 k/uL (0-1.0); Monocytes % (A) 6 %; Neutrophils # (A) 4.5 k/uL (1.3-7.7); Neutrophils % (A) 69 %; Platelet Count 157 k/uL (150-450); RBC 3.84 m/uL (4.30-5.90); RDW 14.3 % (11.5-15.5); WBC 6.6 k/uL (3.8-10.6)
[2024-04-27 09:20] LABS: INR 0.9 (<1.2); Prothrombin Time 10.5 sec (10.0-12.5)
[2024-04-27 09:21] LABS: ALT 61 U/L (4-49); AST 95 U/L (17-59); African American GFR (CKD) 26 (>60 ml/min/1.73 sqM); Albumin 4.2 g/dL (3.5-5.0); Alkaline Phosphatase 96 U/L (38-126); Anion Gap 11 mmol/L; Blood Urea Nitrogen 32 mg/dL (9-20); Calcium 9.2 mg/dL (8.4-10.2); Carbon Dioxide 25 mmol/L (22-30); Chloride 104 mmol/L (98-107); Glucose 167 mg/dL (74-99); Magnesium 1.8 mg/dL (1.6-2.3); Non-African American GFR(CKD) 22 (>60 ml/min/1.73 sqM); Potassium 4.3 mmol/L (3.5-5.1); Sodium 140 mmol/L (137-145); Total Bilirubin 0.5 mg/dL (0.2-1.3); Total Protein 6.9 g/dL (6.3-8.2)
--- NOTE | 2024-04-27 09:36 | P.GSCN ---
History of Present Illness Consult date: 04/27/24 Reason for Consult: Malfunctioning hemodialysis tunneled catheter Requesting physician: Carina Freeman History of present illness: This is a pleasant 68-year-old male with a history of end-stage renal disease requiring hemodialysis. He has a right IJ tunnel catheter that was placed in August of this year. Apparently he has had 1 exchange already. He underwent left upper extremity fistula on Saturday with Dr. Mary mayes at [facility], at that time it was offered to do a tunnel catheter replacement however patient stated his tunnel catheter was working fine without any difficulty during dialysis. Apparently Saturday he went to have dialysis done and the catheter was not functioning. His last normal hemodialysis was this past . Sodium 140 potassium 4.3 BUN 32 creatinine 2.85 He denies any shortness of breath or chest pain. No discomfort, redness or bleeding from the right IJ catheter site. Review of Systems A 14 point review systems was completed all pertinent positives and negatives as stated in the HPI. Past Medical History Past Medical History: Diabetes Mellitus, Hyperlipidemia, Myocardial Infarction ([place]) Additional Past Medical History / Comment(s): kidney failure - stage 4 Last Myocardial Infarction Date:: 1998 History of Any Multi-Drug Resistant Organisms: None Reported Past Surgical History: Appendectomy, Heart Catheterization With Stent Additional Past Surgical History / Comment(s): Heart cath with stent 20 years ago, stent 12/09/2018 Past Anesthesia/Blood Transfusion Reactions: No Reported Reaction Date of Last Stent Placement:: 1998 Past Psychological History: No Psychological Hx Reported Smoking Status: Former smoker Past Alcohol Use History: Daily, Heavy Past Drug Use History: None Reported Medications and Allergies Home Medications Medication Instructions Recorded Confirmed Type Metoprolol Tartrate [Lopressor] 50 mg PO BID@080012/10/15 04/27/24 History Ergocalciferol (Vitamin D2) 1,250 mcg PO WE@1800 08/27/23 04/27/24 History [Drisdol (50,000 Iu)] Insulin Glargine,Hum.rec.anlog 75 units SQ BID 08/27/23 04/27/24 History [Lantus Solostar Pen] Sodium Bicarbonate Tab 650 mg PO DAILY@0800 08/27/23 04/27/24 History Aspirin EC [Ecotrin Low Dose] 81 mg PO DAILY@0800 04/27/24 04/27/24 History Calcium Acetate [PhosLo] 1,334 mg PO BID-W/MEALS 04/27/24 04/27/24 History Folic Acid/Vit B Complex and C 0.8 mg PO DIRECTED 04/27/24 04/27/24 History [Nephro-Ruperto Tablet] Insulin Aspart [NovoLOG Flexpen] 12 - 14 units SQ AC-TID 04/27/24 04/27/24 History Multivitamins, Thera [Multivitamin 1 tab PO DAILY@1800 04/27/24 04/27/24 History (formulary)] Omeprazole 20 mg PO DAILY@1800 04/27/24 04/27/24 History Rosuvastatin [Crestor] 20 mg PO HS@199904/27/24 04/27/24 History Tamsulosin [Flomax] 0.4 mg PO DAILY@1800 04/27/24 04/27/24 History Torsemide [Demadex] 40 mg PO DAILY@1800 04/27/24 04/27/24 History amLODIPine [Norvasc] 10 mg PO DAILY@1800 04/27/24 04/27/24 History Allergies Allergy/AdvReac Type Severity Reaction Status Date / Time Latex, Natural Rubber Allergy Rash/Hives Verified 04/27/24 09:21 codeine AdvReac Rapid Verified 04/27/24 09:21 Heart Rate meperidine HCl [From Demerol] AdvReac Rapid Verified 04/27/24 09:21 Heart Rate Surgical - Exam Vital Signs Temp Pulse Resp BP Pulse Ox 98.4 F 99 20 155/84 97 04/27/24 08:06 04/27/24 08:06 04/27/24 08:06 04/27/24 08:06 04/27/24 08:06 General appearance: The patient is alert, oriented, appears in no acute distress. HET: Head is normocephalic and atraumatic. Pupils are equal and reactive. Neck: Supple. Chest: Right IJ tunneled catheter in place without any surrounding erythema, drainage, or bleeding. Heart: Regular. Lungs: Equal expansion, normal respiratory effort. Abdomen: Soft, nontender, nondistended. Extremities: Normal skin color and turgor. Left wrist with audible bruit. Neurological: No focal deficits. Strength and sensation are grossly intact. Results - Labs 04/27/24 08:43 04/27/24 08:43 Assessment and Plan Assessment: 1. Malfunctioning right IJ hemodialysis tunneled catheter 2. End-stage renal disease on hemodialysis Plan: 1. Keep n.p.o. 2. Will plan for replacement of right IJ tunnel catheter today 3. Hemodialysis per recommendations from nephrology 4. Rest of medical management per primary medical team The impression and plan of care has been dictated as directed. I performed a history and examination of this patient, discussed the same with the dictator. I agree with the dictator's note ,documented as a scribe. Any additional findings or plans will be noted.
[2024-04-27 12:51] LABS: Glucose,Whole Blood 164 mg/dL (70-110)
[2024-04-27] MEDS: HYDROmorphone 0.5 MG/0.5 ML SYRINGE IVP ONE ×2 (14:34→14:50)
[2024-04-27] MEDS: MIDAZOLAM 2 MG/2 ML VIAL IVP ONE (14:34)
[2024-04-27] MEDS: LIDOCAINE 1% INJ 10MG/ML (20 ML MDV) SQ ONE (14:35)
--- NOTE | 2024-04-27 14:37 | P.NPCON ---
History of Present Illness - Reason for Consult end stage renal disease - History of Present Illness Patient is a 68-year-old male with end-stage renal disease on hemodialysis which was started in August 2023. Patient is admitted to the hospital due to malfunctioning right IJ dialysis catheter. He reports good urine output. Scheduled for new IJ permacath placement today. Last hemodialysis was on last week. Serum creatinine noted to be 2.8 mg/dL. Past Medical History Past Medical History: Diabetes Mellitus, Hyperlipidemia, Myocardial Infarction ([place]) Additional Past Medical History / Comment(s): kidney failure - stage 4 Last Myocardial Infarction Date:: 1998 History of Any Multi-Drug Resistant Organisms: None Reported Past Surgical History: Appendectomy, Heart Catheterization With Stent Additional Past Surgical History / Comment(s): Heart cath with stent 20 years ago, stent 12/09/2018 Past Anesthesia/Blood Transfusion Reactions: No Reported Reaction Date of Last Stent Placement:: 2018 Past Psychological History: No Psychological Hx Reported Smoking Status: Former smoker Past Alcohol Use History: Daily, Heavy Additional Past Alcohol Use History / Comment(s): Patient states he used to drink about 8 beers a day, now up to a fifth a day most days. Last drink was a sip of whiskey Saturday morning Past Drug Use History: None Reported Medications and Allergies Home Medications Medication Instructions Recorded Confirmed Type Metoprolol Tartrate [Lopressor] 50 mg PO BID@0800,199912/10/15 04/27/24 History Ergocalciferol (Vitamin D2) 1,250 mcg PO WE@1800 08/27/23 04/27/24 History [Drisdol (50,000 Iu)] Insulin Glargine,Hum.rec.anlog 75 units SQ BID 08/27/23 04/27/24 History [Lantus Solostar Pen] Sodium Bicarbonate Tab 650 mg PO DAILY@0800 08/27/23 04/27/24 History Aspirin EC [Ecotrin Low Dose] 81 mg PO DAILY@0800 04/27/24 04/27/24 History Calcium Acetate [PhosLo] 1,334 mg PO BID-W/MEALS 04/27/24 04/27/24 History Folic Acid/Vit B Complex and C 0.8 mg PO DIRECTED 04/27/24 04/27/24 History [Nephro-Ruperto Tablet] Insulin Aspart [NovoLOG Flexpen] 12 - 14 units SQ AC-TID 04/27/24 04/27/24 History Multivitamins, Thera [Multivitamin 1 tab PO DAILY@1800 04/27/24 04/27/24 History (formulary)] Omeprazole 20 mg PO DAILY@1800 04/27/24 04/27/24 History Rosuvastatin [Crestor] 20 mg PO HS@2000 04/27/24 04/27/24 History Tamsulosin [Flomax] 0.4 mg PO DAILY@1800 04/27/24 04/27/24 History Torsemide [Demadex] 40 mg PO DAILY@1800 04/27/24 04/27/24 History amLODIPine [Norvasc] 10 mg PO DAILY@1800 04/27/24 04/27/24 History Allergies Allergy/AdvReac Type Severity Reaction Status Date / Time Latex, Natural Rubber Allergy Rash/Hives Verified 04/27/24 09:21 codeine AdvReac Rapid Verified 04/27/24 09:21 Heart Rate meperidine HCl [From Demerol] AdvReac Rapid Verified 04/27/24 09:21 Heart Rate Physical Exam Vitals: Vital Signs Temp Pulse Resp BP Pulse Ox 04/27/24 10:05 72 20 162/78 98 04/27/24 08:06 98.4 F 99 20 155/84 97 Intake and Output 04/26/24 04/27/24 04/27/24 22:59 06:59 14:59 Other: Weight 89.811 kg patient is awake, comfortable, no acute distress. Examination of the heart S1 and S2 Examination of the lungs bilateral breath sounds are heard Abdomen is soft nontender Examination of lower extremities shows no significant edema MANAGER MAINTENANCE exam grossly intact Results - Lab Results Most recent lab results Calcium 9.2 mg/dL (8.4-10.2) 04/27/24 08:43 Magnesium 1.8 mg/dL (1.6-2.3) 04/27/24 08:43 04/27/24 08:43 04/27/24 08:43 Assessment and Plan Assessment: 1. End-stage renal disease on hemodialysis on Saturday schedule. Patient was started on hemodialysis in August of this year due to worsening renal function. His baseline creatinine is around 2.5 mg/dL. Serum creatinine is noted to be 2.8 with last hemodialysis on last week. They may be recovery of renal function. 2. Chronic kidney disease secondary to diabetic kidney disease and nephrosclerosis with previous baseline creatinine of 2.5-2.8 mg/dL prior to starting hemodialysis in August 2023 3. Malfunctioning right IJ permacath Plan: hemodialysis in a.m, this can be done as outpatient if patient is discharged tonight otherwise we will plan on hemodialysis here tomorrow. Check BMP in a.m. to assess for recovery of renal function. We will continue to monitor renal function as outpatient for possible recovery of renal function.
[2024-04-27] MEDS: SODIUM CHLORIDE 0.9% 500 ML 500 ML IV ONE (14:58)
--- NOTE | 2024-04-27 15:14 | P.OP ---
Date of Procedure: 04/27/24 Preoperative Diagnosis: Nonfunctional, thrombosed tunneled catheter Postoperative Diagnosis: Same Procedure(s) Performed: Right internal jugular vein tunneled hemodialysis catheter exchange under fluoroscopic guidance Conscious sedation x 22 minutes Anesthesia: local Surgeon: Juan Carlson Estimated Blood Loss (ml): 10 Pathology: none sent Condition: stable Disposition: PACU Description of Procedure: Indication for procedure: 68-year-old gentleman with history of end-stage renal disease on hemodialysis via right-sided chest catheter who recently had left upper extremity arteriovenous fistula creation presents to the hospital secondary to unable to utilize his catheter for dialysis. He states that it was thrombosed and would not function. He presents today to the [facility] for exchange of his hemodialysis catheter. During discussion with the patient he states that he would like it to maintain on the right side if possible. Operative narrative: After written and informed consent was obtained and all risks, benefits and competitions were described the patient was brought to the [facility] and laid in a supine position. The area of the right neck and chest was prepped and draped in the usual sterile fashion. Timeout was performed in normal fashion and antibiotics were administered prior to access. Local anesthetic was infused overlying the existing catheter at the neck and a small incision with a 15 blade scalpel was created and dissection was carried down to the catheter. The catheter was dissected free in a circumferential manner and controlled with a stat. The catheter was then cut and a guidewire was placed under direct visualization of fluoroscopy into the inferior vena cava. Existing catheter was then removed and a dilator was guided over the guidewire into the vein for hemostasis. Attention was then placed to the chest wall. Existing c atheter was then dissected free after local anesthetic was infused overlying the catheter and the cuff. The cuff was then dissected in a circumferential manner and distal aspect of the catheter was removed and sent off. Just medial to the existing incision another incision was created after local anesthetic was infused over this area as well as up to the neck incision. A 19 cm centimeter palindrome hemodialysis catheter was then tunneled from the chest wall to the neck. Breakaway sheath was placed into the internal jugular vein under direct visualization of fluoroscopy. The catheter was then placed within the break away sheath the sheath was removed. The ports were assessed for patency and eh and flushed easily and then were hep-locked. The catheter was then sutured in place, cleansed and dressings were placed. The patient tolerated procedure well.
--- NOTE | 2024-04-27 15:24 | IR ---
EXAMINATION TYPE: IR cvc insert central tunneled DATE OF EXAM: 04/27/2024 COMPARISON: NONE HISTORY: Fluoroscopy time. Fluoroscopy was provided to the referring clinician. [facility], , 04/27/2024 3:22 PM
[2024-04-27] MEDS: INSULIN ASPART (NovoLOG) 100 UNIT/ML VIAL SQ SCH (16:42)
--- NOTE | 2024-04-27 16:43 | P.HPIM ---
History of Present Illness H&P Date: 04/27/24 Bill Gee, he is a 68-year-old male who presented to [facility] emergency room with a chief complaint of nonfunctional dialysis catheter He was evaluated in the emergency room vital examination on presentation revealed a temperature of 98.4 pulse 99 respiration 20 blood pressure 155/84 a temperature of 98.4 pulse 99 respiration 20 blood pressure 155/84 pulse ox 97% on room air Laboratory data revealed a white blood count of 6.6 hemoglobin 12.0 platelet count 157 BUN 32 creatinine 2.85 glucose 167 Patient was admitted to medical floor for further evaluation and treatment. Past medical history is significant for history of end-stage renal disease on hemodialysis, history of insulin-dependent diabetes mellitus, history of hypertension, history of hyperlipidemia, history of benign prostatic hypertrophy, history of chronic anemia, and history of chronic back pain Past Medical History Past Medical History: Diabetes Mellitus, Hyperlipidemia, Myocardial Infarction (AR) Additional Past Medical History / Comment(s): kidney failure - stage 4 Last Myocardial Infarction Date:: 1998 History of Any Multi-Drug Resistant Organisms: None Reported Past Surgical History: Appendectomy, Heart Catheterization With Stent Additional Past Surgical History / Comment(s): Heart cath with stent 20 years ago, stent 12/09/2018 Past Anesthesia/Blood Transfusion Reactions: No Reported Reaction Date of Last Stent Placement:: 1998 Past Psychological History: No Psychological Hx Reported Smoking Status: Former smoker Past Alcohol Use History: Daily, Heavy Past Drug Use History: None Reported Medications and Allergies Home Medications Medication Instructions Recorded Confirmed Type Metoprolol Tartrate [Lopressor] 50 mg PO BID@0800,199912/10/15 04/27/24 History Ergocalciferol (Vitamin D2) 1,250 mcg PO WE@1800 08/27/23 04/27/24 History [Drisdol (50,000 Iu)] Insulin Glargine,Hum.rec.anlog 75 units SQ BID 08/27/23 04/27/24 History [Lantus Solostar Pen] Sodium Bicarbonate Tab 650 mg PO DAILY@0800 08/27/23 04/27/24 History Aspirin EC [Ecotrin Low Dose] 81 mg PO DAILY@0800 04/27/24 04/27/24 History Calcium Acetate [PhosLo] 1,334 mg PO BID-W/MEALS 04/27/24 04/27/24 History Folic Acid/Vit B Complex and C 0.8 mg PO DIRECTED 04/27/24 04/27/24 History [Nephro-Ruperto Tablet] Insulin Aspart [NovoLOG Flexpen] 12 - 14 units SQ AC-TID 04/27/24 04/27/24 History Multivitamins, Thera [Multivitamin 1 tab PO DAILY@1800 04/27/24 04/27/24 History (formulary)] Omeprazole 20 mg PO DAILY@1800 04/27/24 04/27/24 History Rosuvastatin [Crestor] 20 mg PO HS@2000 04/27/24 04/27/24 History Tamsulosin [Flomax] 0.4 mg PO DAILY@1800 04/27/24 04/27/24 History Torsemide [Demadex] 40 mg PO DAILY@1800 04/27/24 04/27/24 History amLODIPine [Norvasc] 10 mg PO DAILY@1800 04/27/24 04/27/24 History Allergies Allergy/AdvReac Type Severity Reaction Status Date / Time Latex, Natural Rubber Allergy Rash/Hives Verified 04/27/24 09:21 codeine AdvReac Rapid Verified 04/27/24 09:21 Heart Rate meperidine HCl [From Demerol] AdvReac Rapid Verified 04/27/24 09:21 Heart Rate Physical Exam Vitals: Vital Signs Temp Pulse Resp BP Pulse Ox 04/27/24 08:06 98.4 F 99 20 155/84 97 Intake and Output 04/26/24 04/27/24 04/27/24 22:59 06:59 14:59 Other: Weight 89.811 kg In general patient is alert and oriented x 3 in no distress HEENT head normocephalic and atraumatic Neck is supple no JVD no goiter no lymphadenopathy no carotid bruit Chest examination is clear to auscultation no crackles no wheezing Cardiac exam reveals regular heart sounds S1 and S2 no gallops no murmurs Abdomen is soft nontender no organomegaly with normal bowel sounds Extremity exam reveals no edema no cyanosis or clubbing Neurological examination reveals no gross focal deficits Results CBC & Chem 7: 04/27/24 08:43 04/27/24 08:43 Labs: Abnormal Lab Results - Last 24 Hours (Table) 04/27/24 04/27/24 Range/Units 08:43 08:43 RBC 3.84 L (4.30-5.90) m/uL Hgb 12.0 L (13.0-17.5) gm/dL Hct 35.5 L (39.0-53.0) % BUN 32 H (9-20) mg/dL Creatinine 2.85 H (0.66-1.25) mg/dL Glucose 167 H (74-99) mg/dL AST 95 H (17-59) U/L ALT 61 H (4-49) U/L Assessment and Plan Plan: Nonfunctioning dialysis catheter Underlying history of end-stage renal disease on hemodialysis Underlying history of insulin-dependent diabetes mellitus Underlying history of hypertension Underlying history of hyperlipidemia Underlying history of chronic back pain Underlying history of anemia Underlying history of benign prostatic hypertrophy At this time patient was admitted to medical floor Consultation for vascular surgery was initiated to replace dialysis catheter Consultation for nephrology was initiated to continue with dialysis Home medications reviewed and reordered Will follow closely
[2024-04-27 17:12] LABS: Glucose,Whole Blood 251 mg/dL (70-110)
[2024-04-27] MEDS: PANTOPRAZOLE 40 MG TABLET PO SCH (17:49)
[2024-04-27] MEDS: CALCIUM ACETATE 667 MG TAB PO SCH (17:49)
[2024-04-27] MEDS: MULTIVITAMINS, THERA 1 EACH TAB PO SCH (17:49)
[2024-04-27] MEDS: TORSEMIDE 20 MG TAB PO SCH (17:49)
[2024-04-27] MEDS: amLODIPine 10 MG TAB PO SCH (17:49)
[2024-04-27] MEDS: TAMSULOSIN 0.4 MG CAP.ER.24H PO SCH (17:50)
[2024-04-27 20:35] LABS: Glucose,Whole Blood 224 mg/dL (70-110)
[2024-04-27] MEDS: ATORVASTATIN 40 MG TAB PO SCH (20:44)
[2024-04-27] MEDS: METOPROLOL TARTRATE 50 MG TAB PO SCH (20:44)
[2024-04-27] MEDS: INSULIN DETEMIR (LEVEMIR) 100 UNIT/ML SYR SQ SCH (20:44)
[2024-04-27] MEDS: ACETAMINOPHEN TAB 325 MG TAB PO PRN (22:02)
[2024-04-28 00:44] VITALS: TEMP 97.8
[2024-04-28 05:52] LABS: Glucose,Whole Blood 141 mg/dL (70-110)
[2024-04-28 09:20] LABS: Basophils # (A) 0.06 X 10*3/uL (0.00-0.10); Eosinophils # (A) 0.23 X 10*3/uL (0.04-0.35); Eosinophils % (A) 3.6 %; HCT 34.5 % (39.6-50.0); HGB 11.7 g/dL (13.0-17.0); Lymphocytes # (A) 1.37 X 10*3/uL (0.90-5.00); Lymphocytes % (A) 21.7 %; MCH 30.9 pg (27.0-32.0); MCHC 33.9 g/dL (32.0-37.0); Mean Platelet Volume 11.3 FL (9.5-12.2); Monocytes # (A) 0.46 X 10*3/uL (0.20-1.00); Monocytes % (A) 7.3 %; NRBC Per 100 WBC 0 X 10*3/uL (0.00-0.01); Neutrophils # (A) 4.14 X 10*3/uL (1.80-7.70); Neutrophils % (A) 65.6 %; Platelet Count 149 X 10*3/uL (140-440); RBC 3.79 X 10*6/uL (4.40-5.60); RDW 13.9 % (11.5-14.5); WBC 6.31 X 10*3/uL (4.50-10.00)
--- NOTE | 2024-04-28 09:31 | XR ---
EXAMINATION TYPE: XR chest 1V confirm line [facility] DATE OF EXAM: 04/28/2024 COMPARISON: 08/29/2023 HISTORY: Multiple dialysis catheter TECHNIQUE: Single frontal view of the chest is obtained. FINDINGS: There is no focal air space opacity, pleural effusion, or pneumothorax seen. The cardiac silhouette size is within normal limits. The osseous structures are intact. Hemodialysis catheter seen with the tip overlying the SVC. AC joint arthropathy. Degenerative change of the spine. IMPRESSION: 1. Hemodialysis catheter seen with tip overlying the SVC. [facility], , 04/28/2024 9:28 AM
[2024-04-28] MEDS: ASPIRIN 81 MG PO SCH (09:40)
[2024-04-28] MEDS: SODIUM BICARBONATE TAB 650 MG TAB PO SCH (09:40)
--- NOTE | 2024-04-28 09:40 | P.DS ---
Providers Date of admission: 04/27/24 08:31 Expected date of discharge: 04/28/24 Attending physician: Carina Freeman Consults: 04/27/24 08:31 Consult Physician Routine Consulting Provider: Juan Carlson Consult Reason/Comments: Occluded dialysis catheter Do you want consulting provider notified?: Already Contacted Consult Physician Routine Consulting Provider: Lisha Gonzalez Consult Reason/Comments: ESRD Do you want consulting provider notified?: Yes Primary care physician: Carina Freeman [facility] Course: Discharge diagnosis Nonfunctioning dialysis catheter Underlying history of end-stage renal disease on hemodialysis Underlying history of insulin-dependent diabetes mellitus Underlying history of hypertension Underlying history of hyperlipidemia Underlying history of chronic back pain Underlying history of anemia Underlying history of benign prostatic hypertrophy Hospital course Bill Gee, he is a 68-year-old male who presented to [facility] emergency room with a chief complaint of nonfunctional dialysis catheter He was evaluated in the emergency room vital examination on presentation revealed a temperature of 98.4 pulse 99 respiration 20 blood pressure 155/84 a temperature of 98.4 pulse 99 respiration 20 blood pressure 155/84 pulse ox 97% on room air Laboratory data revealed a white blood count of 6.6 hemoglobin 12.0 platelet count 157 BUN 32 creatinine 2.85 glucose 167 Patient was admitted to medical floor for further evaluation and treatment. Past medical history is significant for history of end-stage renal disease on hemodialysis, history of insulin-dependent diabetes mellitus, history of hypertension, history of hyperlipidemia, history of benign prostatic hypertrophy, history of chronic anemia, and history of chronic back pain On 04/28/2024 patient is alert and oriented x 3. Patient had dialysis catheter exchange last night with vascular surgery patient to get hemodialysis today prior to discharge and then cleared for discharge from vascular surgery. Patient denies chest pain or shortness of breath. Patient denies nausea vomiting or diarrhea. Patient denies any urinary burning or frequency Patient Condition at Discharge: Stable Plan - Discharge Summary Discharge Rx Participant: No New Discharge Prescriptions: Continue Metoprolol Tartrate [Lopressor] 50 mg PO BID@0800,2000 Insulin Glargine,Hum.rec.anlog [Lantus Solostar Pen] 75 units SQ BID Multivitamins, Thera [Multivitamin (formulary)] 1 tab PO DAILY@1800 Insulin Aspart [NovoLOG Flexpen] 12 - 14 units SQ AC-TID Calcium Acetate [PhosLo] 1,334 mg PO BID-W/MEALS Sodium Bicarbonate Tab 650 mg PO DAILY@0800 Ergocalciferol (Vitamin D2) [Drisdol (50,000 Iu)] 1,250 mcg PO WE@1800 amLODIPine [Norvasc] 10 mg PO DAILY@1800 Rosuvastatin [Crestor] 20 mg PO HS@2000 Aspirin EC [Ecotrin Low Dose] 81 mg PO DAILY@0800 Torsemide [Demadex] 40 mg PO DAILY@1800 Folic Acid/Vit B Complex and C [Nephro-Ruperto Tablet] 0.8 mg PO DIRECTED Tamsulosin [Flomax] 0.4 mg PO DAILY@1800 Omeprazole 20 mg PO DAILY@1800 Discharge Medication List Metoprolol Tartrate [Lopressor] 50 mg PO BID@0800,199912/10/15 [History] Ergocalciferol (Vitamin D2) [Drisdol (50,000 Iu)] 1,250 mcg PO WE@1800 08/27/23 [History] Insulin Glargine,Hum.rec.anlog [Lantus Solostar Pen] 75 units SQ BID 08/27/23 [History] Sodium Bicarbonate Tab 650 mg PO DAILY@0800 08/27/23 [History] Aspirin EC [Ecotrin Low Dose] 81 mg PO DAILY@0800 04/27/24 [History] Calcium Acetate [PhosLo] 1,334 mg PO BID-W/MEALS 04/27/24 [History] Folic Acid/Vit B Complex and C [Nephro-Ruperto Tablet] 0.8 mg PO DIRECTED 04/27/24 [History] Insulin Aspart [NovoLOG Flexpen] 12 - 14 units SQ AC-TID 04/27/24 [History] Multivitamins, Thera [Multivitamin (formulary)] 1 tab PO DAILY@1800 04/27/24 [History] Omeprazole 20 mg PO DAILY@1800 04/27/24 [History] Rosuvastatin [Crestor] 20 mg PO HS@199904/27/24 [History] Tamsulosin [Flomax] 0.4 mg PO DAILY@1800 04/27/24 [History] Torsemide [Demadex] 40 mg PO DAILY@1800 04/27/24 [History] amLODIPine [Norvasc] 10 mg PO DAILY@1800 04/27/24 [History] Follow up Appointment(s)/Referral(s): Carina Freeman MD [Primary Care Provider] - 1-2 days Discharge Disposition: HOME SELF-CARE
[2024-04-28] MEDS: FOLIC ACID-VIT B COMPLEX-VIT C 1 CAP PO SCH (09:41)
[2024-04-28 10:06] LABS: BUN/Creat Ratio 10.72 Ratio (12.00-20.00); Blood Urea Nitrogen 31.1 mg/dL (9.0-27.0); Carbon Dioxide 21.7 mmol/L (21.6-31.8); Chloride 102 mmol/L (96-109); Glucose 139 mg/dL (70-110); Potassium 4.1 mmol/L (3.5-5.5); Sodium 140 mmol/L (135-145)
[2024-04-28 10:07] LABS: ALT 56 U/L (10-49); AST 68 U/L (14-35); Albumin/Globulin Ratio 1.67 Ratio (1.60-3.17); Alkaline Phosphatase 97 U/L (41-126); Globulin 2.4 g/dL (1.6-3.3); Total Bilirubin 0.2 mg/dL (0.3-1.2); Total Protein 6.4 g/dL (6.2-8.2)
--- NOTE | 2024-04-28 11:54 | P.PN ---
Subjective Progress Note Date: 04/28/24 Principal diagnosis: Malfunctioning HD catheter Patient is seen and examined today as a follow-up. Yesterday patient underwent right IJ hemodialysis catheter exchange. Patient did not get hemodialysis yesterday and is scheduled to undergo today. He denies any pain in his chest, no shortness of breath or chest pain. Objective - Vital Signs Vital signs: Vital Signs Temp 97.8 F 04/28/24 07:00 Pulse 60 04/28/24 07:00 Resp 16 04/28/24 07:00 BP 124/70 04/28/24 07:00 Pulse Ox 96 04/28/24 07:00 FiO2 Intake & Output 04/27/24 04/28/24 04/28/24 18:59 06:59 18:59 Intake Total 818 1040 Balance 818 1040 Weight 89.811 kg Intake: IV 100 Oral 718 1040 Other: # Voids 4 2 - Exam General appearance: The patient is alert, oriented, appears in no acute distress. HET: Head is normocephalic and atraumatic. Pupils are equal and reactive. Neck: Supple. Chest: Right IJ HD tunneled catheter in place with dressing intact. No bleeding noted. Heart: Regular. Lungs: Equal expansion, normal respiratory effort. Abdomen: Soft, nontender, nondistended. Extremities: Normal skin color and turgor. Neurological: No focal deficits. - Labs CBC & Chem 7: 04/28/24 05:57 04/28/24 05:57 Labs: Abnormal Lab Results - Last 24 Hours (Table) 04/27/24 04/27/24 04/27/24 Range/Units 08:43 08:43 12:50 RBC 3.84 L (4.30-5.90) m/uL Hgb 12.0 L (13.0-17.5) gm/dL Hct 35.5 L (39.0-53.0) % BUN 32 H (9-20) mg/dL Creatinine 2.85 H (0.66-1.25) mg/dL Glucose 167 H (74-99) mg/dL POC Glucose (mg/dL) 164 H (70-110) mg/dL AST 95 H (17-59) U/L ALT 61 H (4-49) U/L 04/27/24 04/27/24 04/28/24 Range/Units 17:11 20:33 05:51 RBC (4.30-5.90) m/uL Hgb (13.0-17.5) gm/dL Hct (39.0-53.0) % BUN (9-20) mg/dL Creatinine (0.66-1.25) mg/dL Glucose (74-99) mg/dL POC Glucose (mg/dL) 251 H 224 H 141 H (70-110) mg/dL AST (17-59) U/L ALT (4-49) U/L Assessment and Plan Assessment: 1. Malfunctioning right IJ hemodialysis tunneled catheter status post catheter exchange 2. End-stage renal disease on hemodialysis Plan: 1. Renal diet 2. Hemodialysis per recommendations from nephrology 3. Patient is cleared from vascular surgery of hemodialysis completed without any complications 4. Rest of medical management per primary medical team Thank you for this consultation, we will sign off at this time. The impression and plan of care has been dictated as directed. Dr. Hernandez I performed a history and examination of this patient, discussed the same with the dictator. I agree with the dictator's note ,documented as a scribe. Any additional findings or plans will be noted.
[2024-04-28 12:02] LABS: Glucose,Whole Blood 157 mg/dL (70-110)
[2024-04-28 16:16] VITALS: BP 167/84; PULSE 54; RESP 20
[2024-04-29] MEDS ORDERED: ERGOCALCIFEROL 1,250 MCG (50,000 IU) CAPSULE PO SCH (18:00)
--- NOTE | 2024-04-30 22:43 | P.PN ---
Subjective Patient is seen for f/u for ESRD. There may be recovery of renal function. New dialysis catheter still not working well. No other complaints. Objective - Vital Signs Vital signs: Vital Signs Temp 97.8 F 04/28/24 07:00 Pulse 54 L 04/28/24 15:00 Resp 20 04/28/24 15:00 BP 167/84 04/28/24 15:00 Pulse Ox 96 04/28/24 07:00 FiO2 - Exam Patient is awake, comfortable, alert and oriented. No edema No motor deficits - Labs CBC & Chem 7: 04/28/24 05:57 04/28/24 05:57 Assessment and Plan Assessment: 1. End-stage renal disease on hemodialysis on Saturday schedule. Patient was started on hemodialysis in August of this year due to worsening renal function. His baseline creatinine is around 2.5 mg/dL. Serum creatinine is noted to be 2.8 with last hemodialysis on last week. They may be recovery of renal function. 2. Chronic kidney disease secondary to diabetic kidney disease and nephrosclerosis with previous baseline creatinine of 2.5-2.8 mg/dL prior to starting hemodialysis in August 2023 3. Malfunctioning right IJ permacath, s/p exchange Plan: OK to discharge post dialysis. F/u for labs as out patient. Monitor renal function for possible recovery.
== END 2024-04-28 15:30 | disposition home or self-care (01) ==
LOC: EC 08:04 → 6NMEDSUR 08:31
PROVIDERS: ADMIT Internal Medicine; ATTEND Internal Medicine
DX: E11.22 Type 2 diabetes mellitus with diabetic chronic kidney disease (principal); T82.49XA Other complication of vascular dialysis catheter, initial encounter; N18.6 End stage renal disease; I12.0 Hypertensive chronic kidney disease with stage 5 chronic kidney disease or end stage renal disease; D63.1 Anemia in chronic kidney disease; M54.9 Dorsalgia, unspecified; G89.29 Other chronic pain; N40.0 Benign prostatic hyperplasia without lower urinary tract symptoms; E78.5 Hyperlipidemia, unspecified; Z99.2 Dependence on renal dialysis; Z79.4 Long term (current) use of insulin; Z79.82 Long term (current) use of aspirin; Z79.899 Other long term (current) drug therapy; Z87.891 Personal history of nicotine dependence; Z88.5 Allergy status to narcotic agent; Z88.8 Allergy status to other drugs, medicaments and biological substances; Z91.040 Latex allergy status
CPT/HCPCS: 90935; 99285; 36581; 80053 ×2; 83735; 85025 ×2; 85610; 85730; G0378 ×2; C1769; C1750; J2250; J2003; J1171; 96361; 96372; 96374; 96375; 96376

== ENCOUNTER → 2024-06-16 | Outpatient (CLI) | payer MEDICARE ==
[2024-06-16 14:57] LABS: Eosinophils # (A) 0.26 X 10*3/uL (0.04-0.35); Eosinophils % (A) 2.6 %; HCT 40.8 % (39.6-50.0); HGB 13.6 g/dL (13.0-17.0); Lymphocytes # (A) 1.74 X 10*3/uL (0.90-5.00); Lymphocytes % (A) 17.1 %; MCH 30.3 pg (27.0-32.0); MCHC 33.3 g/dL (32.0-37.0); MCV 90.9 FL (80.0-97.0); Mean Platelet Volume 11.1 FL (9.5-12.2); Monocytes # (A) 0.67 X 10*3/uL (0.20-1.00); Monocytes % (A) 6.6 %; NRBC Per 100 WBC 0 X 10*3/uL (0.00-0.01); Neutrophils # (A) 7.32 X 10*3/uL (1.80-7.70); Neutrophils % (A) 71.9 %; Platelet Count 193 X 10*3/uL (140-440); RBC 4.49 X 10*6/uL (4.40-5.60); RDW 13.4 % (11.5-14.5); WBC 10.17 X 10*3/uL (4.50-10.00)
[2024-06-16 15:32] LABS: % Iron Saturation 20.33 (15.00-50.00); ALT 34 U/L (10-49); AST 41 U/L (14-35); Albumin 4.4 g/dL (3.8-4.9); Albumin/Globulin Ratio 1.63 Ratio (1.60-3.17); Alkaline Phosphatase 108 U/L (41-126); BUN/Creat Ratio 9.41 Ratio (12.00-20.00); Blood Urea Nitrogen 27.3 mg/dL (9.0-27.0); Calcium 9.4 mg/dL (8.7-10.3); Carbon Dioxide 25.2 mmol/L (21.6-31.8); Chloride 102 mmol/L (96-109); Globulin 2.7 g/dL (1.6-3.3); Glucose 127 mg/dL (70-110); Iron 62 UG/DL (65-175); Magnesium 1.7 mg/dL (1.5-2.4); Phosphorus 3.3 mg/dL (2.4-5.1); Potassium 4.3 mmol/L (3.5-5.5); Sodium 140 mmol/L (135-145); Total Bilirubin 0.2 mg/dL (0.3-1.2); Total Iron Binding Capacity 305 UG/DL (228-460); Total Protein 7.1 g/dL (6.2-8.2)
== END | disposition home or self-care (01) ==
LOC: LABWHC1 12:38
PROVIDERS: ATTEND Internal Medicine Nephrology
DX: N18.4 Chronic kidney disease, stage 4 (severe) (principal); D63.1 Anemia in chronic kidney disease; N25.81 Secondary hyperparathyroidism of renal origin; E55.9 Vitamin D deficiency, unspecified
CPT/HCPCS: 36415; 80053; 82306; 83540; 83550; 83735; 83970; 84100; 85025